=== PATIENT | male | born 1940 | race Caucasian/White ===

== ENCOUNTER → 2018-03-12 08:34 | Day surgery (SDC) | payer MEDICARE, OTHER, SELFPAY ==
--- NOTE | 2018-03-12 | PATH_ITS ---
[facility] Accession Number: [id number] . 01 Material submitted: . PART A: POLYPS AT APPENDICEAL ORIFICE PART B: ASCENDING COLON POLYP PART C: POLYP AT 55CM PART D: POLYP AT 25CM . 01 Clinical history: . A: HX OF DYPLASTIC POLYP . 02 Diagnosis: A. 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 No evidence of invasive carcinoma. . B. Ascending Colon Polyp, Biopsy: Tubular adenoma. . C. Polyp at 55 cm, Biopsy: Hyperplastic polyp. . D. Polyp at 25 cm, Biopsy: Hyperplastic polyp. MRV/03/14/2018 . 02 Comment: A sessile serrated adenoma with high-grade cytologic dysplasia is considered an advanced adenoma. Complete polypectomy and shortened surveillance interval are recommended. . As part of routine quality specialist, Drs. Barker and Ryan have reviewed part A of this case and agree with the above diagnosis. . 02 Electronically signed: . Rogelio Zapata MD, PhD, Pathologist NPI- [id number] . 01 Gross description: . Received four formalin-filled containers each labeled with the patient's name. . A. In a container labeled 1. Polyps at appendiceal orifice are multiple less than 0.1 to 0.3 cm portions of tissue, which are filtered, wrapped and entirely submitted in cassette A. B. In a container labeled ascending colon polyp, the specimen consists of a 0.3 cm portion of tissue. Entirely submitted in cassette B. C. In a container labeled polyp at 55 cm, the specimen consists of two 0.2 to 0.3 cm portions of tissue. Entirely submitted in cassette C. D. In a container labeled polyp at 25 cm are two 0.2 to 0.3 cm portions of tissue. Entirely submitted in cassette D. ([email or web address] ) / . Pathologist provided ICD-10: D12.0, D12.2, K63.5 . 02 CPT . 168445, 917344, [id number], [id number] Performed at: 01 [facility] [address] [address], [place], [place] [id number] MD Michael Mirza MD Phone: [phone] Performed at: 02 [facility] [address] [place], [place] [id number] MD Jl Malone MD Phone: [phone]
[2018-03-12 09:15] VITALS: BP 126/80; PULSE 122; RESP 16; TEMP 36.2; O2SAT 94; BMI 32.6
--- NOTE | 2018-03-12 09:57 | PM.HP.1 ---
History of Present Illness Chief complaint: colonoscopy [id number] Narrative: Alex Coronado is a 78 year old male Patient is a gentleman who had an EGD and colonoscopy in September. He had a severely dysplastic lesion removed in the cecum. He is brought back to ensure that nothing has grown back in that area. This was adjacent to his appendiceal opening. He persist persists at being anemic [facility] Medical History Atrial fibrillation (Acute) Partial blindness (Acute) History of prostate cancer (Inactive) History of radiation therapy (Inactive) Social History Smoking Status: Former smoker Meds Home Medications Medication Instructions Recorded Confirmed Type Brimonidine Tartrate (ALPHAGAN 5 ml OP #0 05/31/12 History 0.2%) [D3] 1,000 mg PO QDAY #0 05/31/12 History amlodipine [Norvasc] 5 mg PO QDAY #0 05/31/12 History olmesartan [Benicar] 40 mg PO QDAY #0 05/31/12 History timolol maleate [Timoptic] 1 drp OPHTH #0 05/31/12 History diphenoxylate-atropine 1 tab PO PRN PRN #0 10/09/17 History levothyroxine [Tirosint] 0 PO QDAY #0 10/09/17 History metoprolol succinate [Toprol XL] #0 10/09/17 History Generic Name Dose Route Start Last Admin Trade Name Noble PRN Reason Stop Dose Admin Flumazenil 0.2 mg 03/12/18 08:17 Romazicon IV PRN PRN Benzodiazepine Reversal Sodium Chloride 1,000 mls @ 200 mls/hr 03/12/18 08:30 Normal Saline 0.9% IV CONT DANNY Naloxone HCl 0.2 mg 03/12/18 08:17 Narcan IV Q2MIN PRN Opiate Reversal Allergies Allergy/AdvReac Type Severity Reaction Status Date / Time No Known Drug Allergies Allergy Verified 03/12/18 09:02 Review of Systems Review of Systems All systems reviewed & are unremarkable except as noted in HPI and below Eyes Comments: 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 His lungs are clear to auscultation. No rales or rhonchi. Heart irregularly irregular. No murmur or gallop appreciated. Abdomen is protuberant soft nontender without mass. Patient is alert and oriented x3. Assessment & Plan Plan: Plan: I have discussed the procedure and the rationale with the patient including risks of bleeding, perforation which would necessitate a major operation, failure to find remove all lesions and the potential to tattoo. They appeared to understand and wished to proceed.
--- NOTE | 2018-03-12 10:03 | P.HP_ITS ---
History of Present Illness Chief complaint: colonoscopy [id number] Narrative: Alex Coronado is a 78 year old male Patient is a gentleman who had an EGD and colonoscopy in September. He had a severely dysplastic lesion removed in the cecum. He is brought back to ensure that nothing has grown back in that area. This was adjacent to his appendiceal opening. He persist persists at being anemic [facility] Medical History Atrial fibrillation (Acute) Partial blindness (Acute) History of prostate cancer (Inactive) History of radiation therapy (Inactive) Social History Smoking Status: Former smoker Meds Home Medications Medication Instructions Recorded Confirmed Type Brimonidine Tartrate (ALPHAGAN 5 ml OP #0 05/31/12 History 0.2%) [D3] 1,000 mg PO QDAY #0 05/31/12 History amlodipine [Norvasc] 5 mg PO QDAY #0 05/31/12 History olmesartan [Benicar] 40 mg PO QDAY #0 05/31/12 History timolol maleate [Timoptic] 1 drp OPHTH #0 05/31/12 History diphenoxylate-atropine 1 tab PO PRN PRN #0 10/09/17 History levothyroxine [Tirosint] 0 PO QDAY #0 10/09/17 History metoprolol succinate [Toprol XL] #0 10/09/17 History Generic Name Dose Route Start Last Admin Trade Name Noble PRN Reason Stop Dose Admin Flumazenil 0.2 mg 03/12/18 08:17 Romazicon IV PRN PRN Benzodiazepine Reversal Sodium Chloride 1,000 mls @ 200 mls/hr 03/12/18 08:30 Normal Saline 0.9% IV CONT DANNY Naloxone HCl 0.2 mg 03/12/18 08:17 Narcan IV Q2MIN PRN Opiate Reversal Allergies Allergy/AdvReac Type Severity Reaction Status Date / Time No Known Drug Allergies Allergy Verified 03/12/18 09:02 Review of Systems Review of Systems All systems reviewed & are unremarkable except as noted in HPI and below Eyes Comments: 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 His lungs are clear to auscultation. No rales or rhonchi. Heart irregularly irregular. No murmur or gallop appreciated. Abdomen is protuberant soft nontender without mass. Patient is alert and oriented x3. Assessment & Plan Plan: Plan: I have discussed the procedure and the rationale with the patient including risks of bleeding, perforation which would necessitate a major operation, failure to find remove all lesions and the potential to tattoo. They appeared to understand and wished to proceed.
--- NOTE | 2018-03-12 10:03 | PM.PREOP ---
Pre-operative Note Interval Note Pre-op Check: History & Physical exam performed today H&P completed within 30 days and has changed as indicated here:: None ASA Class (for procedural sedation): III
[2018-03-12 10:48] VITALS: BP 100/68; PULSE 106; RESP 17; TEMP 36.4; O2SAT 96
--- NOTE | 2018-03-12 10:49 | PM.OP.ENDO ---
Operative Date/Time/Diagnoses - Date of procedure: 03/12/18 Time of procedure: 10:49 Pre-op diagnosis: History of dysplastic polyp of the cecum. Post-op diagnosis: same (Same as preop. Other polyps at ascending colon, 55 cm and 25 cm from anal verge. Av malformations of the cecum.) Procedure & Clinicians Study performed: Colonoscopy with hot snare polypectomy and cold biopsies Same procedure as scheduled: Yes Indications: Confirmed complete removal of dysplastic polyp Surgeon: Meng Grande Procedure Notes SCOAP/Timeout: Performed Procedure in detail: The patient was placed in the left lateral decubitus position and underwent IV sedation directed by the surgeon consisting of fentanyl and Versed. Digital exam was remarkable for an absent or reduced prostate. The scope was inserted and advanced through the rectum into the sigmoid, descending, transverse, and ascending colon. The patient was noted to have extensive left colon diverticulosis. The cecum was reached identified by the ileocecal valve and the appendiceal opening. The ileocecal valve was not cannulated. There was a small lesion in the appendiceal opening which probably represents either residual regrowth of the severely dysplastic lesion removed in September. I snared this lesion and then biopsied the edges to confirm removal. 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 The scope was gradually brought out. There was a lesion in the ascending colon which we biopsied and removed. Another lesion was found at 55 cm which was snared. Finally there was a small lesion at 25 cm which was biopsied and removed. The scope was gradually brought out. The scope ultimately was retroflexed in the rectum. The appearance was[normal]. The scope was removed and the patient tolerated the procedure well Scope withdrawal time: Over 6 min excluding biopsy ti Sedation minutes: 33 Findings: diverticulosis (Left colon), polyp (Near appendiceal opening, ascending colon, 55 cm and 25 cm) and vascular ectasias (Cecum) Recommendations: Colonscopy in 1 year Plan for aftercare: By letter. If dysplastic polyp remains repeat in 6 months. Follow up: as needed Disposition: PACU
[2018-03-12 10:53] VITALS: BP 104/72; PULSE 110; RESP 16; TEMP 36.4; O2SAT 996
[2018-03-12 11:05] VITALS: BP 95/68; PULSE 97; RESP 16; TEMP 36.7; O2SAT 92
[2018-03-12 11:19] VITALS: BP 98/63; RESP 16; TEMP 36.4; O2SAT 95
--- NOTE | 2018-03-12 11:25 | SUR.PHASEII ---
Dinies light-headedness, dizziness, states that he feels good and is ready to go home. Tolerated PO intake well.
--- NOTE | 2018-03-12 11:27 | SUR.PHASEII ---
700 ml total NS infused throughout Surgical Stay
== END | disposition home or self-care (01) ==
PROVIDERS: Family Provider Family Medicine; PCP Family Medicine; Visit Provider Specialist
PROC: 0DJD8ZZ Inspection of Lower Intestinal Tract, Via Natural or Artificial Opening Endoscopic (ICD-10-PCS; CPT 45378; principal; 2018-03-12 09:45)
DX: Z87.19 Personal history of other diseases of the digestive system (principal); I48.91 Unspecified atrial fibrillation; Z87.891 Personal history of nicotine dependence; K57.30 Diverticulosis of large intestine without perforation or abscess without bleeding; D12.0 Benign neoplasm of cecum; D12.2 Benign neoplasm of ascending colon; K63.5 Polyp of colon
CPT/HCPCS: 45385; 45380; 99152; 99153

== ENCOUNTER → 2018-08-14 12:27 | Outpatient (CLI) | payer MEDICARE, OTHER, SELFPAY ==
--- NOTE | 2018-08-14 | DI.ECHO.S_ITS ---
[facility] +---------+ : : [address] : : : : [phone] : : : : Phone: [phone]+ Echocardiogram Report + + :Name: SOFYA CARPIO Study Date: 08/14/2018 Height: 68 in : :[facility] Weight: 221 lb: : Gender: Male BSA: 2.1 m2 : :: 1940 Age: 78 yrs : :Reason For Study: SOB, HYPOTENSION : : Performed By: Allison Reza : :Referring: FELIX FELIX L : + + Interpretation Summary 1) Mild-moderately concentric left ventricular hypertrophy with normal size and mildly reduced systolic function (EF 45-50%). 2) Upper normal right ventricular size with mildly reduced function. 3) Both atria are severely dilated. 4) There is mild to moderate mitral regurgitation. 5) There is mild to moderate tricuspid regurgitation. 6) The right ventricular systolic pressure is estimated to be at least 56 mmHg based on an estimated right atrial pressure of 15 mm Hg. 7) The IVC is dilated (diameter is greater than 2.1 cm) and it collapses less than 50% with a sniff. This suggests a high right atrial pressure of 15 mm Hg. 8) Compared to the Echo done 03/07/2016, LVEF has reduced from 55-60% to 45-50% on this study. Procedure: A two-dimensional transthoracic echocardiogram with color flow and Doppler was performed. The study quality was technically adequate. Comparison is made with the echocardiogram of 03/07/2016. The patient was in atrial fibrillation with heart rates between 73-105 bpm during the exam. Left Ventricle: The left ventricle is normal in size. There is mild-moderate concentric left ventricular hypertrophy. The ejection fraction is estimated to be 45-50%. Diastolic function could not be accurately assessed due to atrial fibrillation. Right Ventricle: The right ventricle is at the upper limits of normal in size. Right ventricular systolic function is mildly reduced. Atria: Both atria are severely dilated. There is no Doppler evidence for an interatrial shunt. Mitral Valve: There is mild mitral annular calcification. There is mild to moderate mitral regurgitation. Aortic Valve: The aortic valve is trileaflet. The aortic valve opens well. There is mild aortic valve sclerosis. There is no aortic valve stenosis. There is mild aortic regurgitation. Tricuspid Valve: The tricuspid valve leaflets are thin and pliable. There is mild to moderate tricuspid regurgitation. The right ventricular systolic pressure is estimated to be at least 56 mmHg based on an estimated right atrial pressure of 15 mm Hg. Pulmonic Valve: The pulmonic valve is normal in structure and function. There is mild pulmonic regurgitation. Great Vessels: The aortic root is normal size. The ascending aorta is at the upper limits of normal in size. The aortic arch is normal in size. The pulmonary artery is normal size. The IVC is dilated (diameter is greater than 2.1 cm) and it collapses less than 50% with a sniff. This suggests a high right atrial pressure of 15 mm Hg. Pericardium/ Pleura There is no pericardial effusion. There is no pleural effusion. MMode/2D Measurements & Calculations LVIDd: 5.4 cm LVOT diam: 2.0 cm LVIDs: 4.7 cm Ao root diam: 3.7 cm FS: 11.7 % asc Aorta Diam: 3.9 cm IVSd: 1.3 cm Ao Arch Diam (Prox Trans): 2.8 cm LVPWd: 1.2 cm LV bland. diameter/BSA (cm/m^2): 2.5 LV sys. diameter/BSA (cm/m^2): 2.2 LA A2 area: 32.3 cm2 RA long axis: 7.7 cm LA A4 area: 37.9 cm2 RA area: 32.9 cm2 LA length (vol): 8.0 cm RA vol: 119.9 ml LA vol: 130.1 ml RA : 56.2 ml/m2 LA vol index: 61.0 ml/m2 IVC diam: 2.9 cm RVD1 (basal): 3.9 cm TAPSE: 1.2 cm Doppler Measurements & Calculations Ao V2 max: 120.6 cm/sec LVOT Max Pranav: 65.2 cm/sec Ao V2 mean: 81.6 cm/sec LV V1 max P.7 mmHg Ao max P.0 mmHg LV V1 VTI: 9.9 cm Ao mean P.1 mmHg MCKENZIE(I,D): 1.7 cm2 Ao V2 VTI: 19.6 cm MCKENZIE(V,D): 1.8 cm2 sev ratio: 0.50 MCKENZIE indexed to BSA (cm^2/m^2): 0.78 MV E max pranav: 89.5 cm/sec TR max pranav: 321.7 cm/sec MV dec time: 0.17 sec TR max P.4 mmHg Reading Physician:03:05 PM
== END ==
PROVIDERS: Family Provider Internal Medicine Cardiovascular Disease; PCP Family Medicine; Visit Provider Family Medicine
DX: I95.9 Hypotension, unspecified (principal)
CPT/HCPCS: 93306

== ENCOUNTER → 2018-08-28 11:07 | Outpatient (CLI) | payer MEDICARE, OTHER, SELFPAY ==
[2018-08-28 11:33] LABS: Add Manual Diff / Slide Review NO; Basophils Percent Auto 1.2 % (0-2); Eosinophils Percent Auto 0.7 % (2-4); Hematocrit 34.2 % (41-53); Hemoglobin 11.1 g/dL (13.5-17.5); Mean Corpuscular HGB Conc 32.3 % (30-36); Mean Corpuscular Hemoglobin 31.1 PG (26-34); Mean Corpuscular Volume 96.1 fL (80-100); Monocytes Percent Auto 8.7 % (3-14); Neutrophils Absolute Auto 5800 /uL (3000-5900); Neutrophils Percent Auto 76.4 % (50-75); Platelet Count 266 X10^3/uL (150-400); Red Blood Cell Count 3.56 X10^6/uL (4.5-5.9); Red Cell Distribution Width 18.2 % (11.6-14.8); White Blood Cell Count 7.6 X10^3/uL (4.5-11.0)
[2018-08-28 11:44] LABS: BUN Creatinine Ratio 17.9 (6-22); Blood Urea Nitrogen 25 mg/dL (9-20); Calcium 9.1 mg/dL (8.4-10.2); Carbon Dioxide 20 mmol/L (22-32); Chloride 109 mmol/L (98-107); Estimated Glomerular Filt Rate 48.9 mL/min (>60); Glucose 110 mg/dL (80-110); HEMOLYSIS < 15 (0-50); Potassium 4.4 mmol/L (3.4-5.1); Sodium 145 mmol/L (137-145)
== END ==
PROVIDERS: Family Provider Internal Medicine Cardiovascular Disease; PCP Family Medicine; Visit Provider Internal Medicine Cardiovascular Disease
DX: I48.2 Chronic atrial fibrillation (principal)
CPT/HCPCS: 36415; 80048; 85025

== ENCOUNTER → 2018-10-21 09:22 | Outpatient (CLI) | payer MEDICARE, OTHER, SELFPAY ==
--- NOTE | 2018-10-21 | DI.ECHO.S_ITS ---
[facility]---------+ [facility] +---------+ : : [address] : : : : [phone] : : : : Phone: [phone] +[phone]+ Echocardiogram Report + + :Name: SOFYA CARPIO Study Date: 10/21/2018 Height: 68 in : :[facility] Exam Location: [facility] Weight: 232 lb : : Gender: Male BSA: 2.2 m2 : :: 1940 Age: 78 yrs BP: 105/80 mmHg: :Reason For Study: HEART FAILURE : : Performed By: Ronnell Dunn : :Referring: FELIX FELIX : + + Interpretation Summary The patient was in atrial fibrillation with controlled ventricular rate during the exam. Moderate concentric left ventricular hypertrophy with ejection fraction 30- 35%. There is inferior wall akinesis. Mildly dilated right ventricle with moderately reduced right ventricular systolic function. Severely dilated both atria. Mild mitral annular calcification. Mild to moderate mitral regurgitation. Moderate tricuspid regurgitation. The right ventricular systolic pressure is estimated to be at least 46 mmHg based on an estimated right atrial pressure of 15 mm Hg. Mild aortic valve sclerosis. Mildly enlarged ascending aorta. Incifdental finding of abdominal ascites is noted. Comparison is made with the echocardiogram of 08/14/18, LV function has worsen with new inferior wall motion abnormality. Procedure: A two-dimensional transthoracic echocardiogram with color flow and Doppler was performed. The study quality was technically adequate. Comparison is made with the echocardiogram of 08/14/18. The patient was in atrial fibrillation with controlled ventricular rate during the exam. The patient had a heart rate of 71-101 beats per minute. Left Ventricle: The left ventricle is normal in size. There is moderate concentric left ventricular hypertrophy. The ejection fraction is estimated to be 30-35%. There is inferior wall akinesis. There is septal wall hypokinesis. Diastolic function could not be accurately assessed due to atrial fibrillation. Right Ventricle: The right ventricle is mildly dilated. Right ventricular systolic function is moderately reduced. Atria: Both atria are severely dilated. The interatrial septum is intact with no evidence for an atrial septal defect. Mitral Valve: The mitral valve is normal in structure and function. There is mild mitral annular calcification. There is mild to moderate mitral regurgitation. Aortic Valve: The aortic valve is trileaflet. Leaflet mobility is minimally reduced. There is mild aortic valve sclerosis. There is trace aortic regurgitation. Tricuspid Valve: The tricuspid valve is normal in structure and function. There is moderate tricuspid regurgitation. The right ventricular systolic pressure is estimated to be at least 46 mmHg based on an estimated right atrial pressure of 15 mm Hg. Pulmonic Valve: The pulmonic valve is normal in structure and function. There is trace pulmonic regurgitation. Great Vessels: The aortic root is normal size. The ascending aorta is mildly enlarged. The pulmonary artery is normal size. The IVC is dilated (diameter is greater than 2.1 cm) and it collapses less than 50% with a sniff. This suggests a high right atrial pressure of 15 mm Hg. Pericardium/ Pleura There is no pericardial effusion. There is no pleural effusion. Incifdental finding of abdominal ascites is noted. MMode/2D Measurements & Calculations LVIDd: 5.4 cm LVOT diam: 2.1 cm LVIDs: 4.1 cm Ao root diam: 3.6 cm FS: 23.0 % Aortic Jxn: 2.5 cm EPSS: 0.84 cm asc Aorta Diam: 3.6 cm IVSd: 1.5 cm Ao Arch Diam (Prox Trans): 2.8 cm LVPWd: 1.4 cm LV lband. diameter/BSA (cm/m^2): 2.5 LV sys. diameter/BSA (cm/m^2): 1.9 LA dimension: 4.6 cm RA long axis: 6.8 cm LA A2 area: 33.8 cm2 RA area: 36.5 cm2 LA A4 area: 40.2 cm2 RA vol: 166.7 ml LA length (vol): 6.9 cm RA : 76.6 ml/m2 LA vol: 166.2 ml IVC diam: 3.0 cm LA vol index: 76.3 ml/m2 RVD1 (basal): 4.6 cm RVD2 (mid): 4.8 cm Doppler Measurements & Calculations Ao V2 max: 104.3 cm/sec LVOT Max Pranav: 71.0 cm/sec Ao V2 mean: 73.8 cm/sec LV V1 max P.0 mmHg Ao max P.4 mmHg LV V1 VTI: 11.8 cm Ao mean P.4 mmHg MCKENZIE(I,D): 2.5 cm2 Ao V2 VTI: 16.5 cm MCKENZIE(V,D): 2.4 cm2 sev ratio: 0.72 MCKENZIE indexed to BSA (cm^2/m^2): 1.2 AI P1/2t: 772.8 msec AI dec slope: 125.0 cm/sec2 MV E max pranav: 70.1 cm/sec TR max pranav: 277.3 cm/sec MV A max pranav: 0.75 cm/sec TR max P.8 mmHg MV E/A: 93.1 PA V2 max: 46.4 cm/sec Med Peak E' Pranav: 3.4 cm/sec PA V2 mean: 33.4 cm/sec E/E' med: 20.6 PA mean P.50 mmHg Lat Peak E' Pranav: 5.1 cm/sec PA pr(Accel): 35.7 mmHg E/E' lat: 13.8 PA Accel Time: 0.10 sec E/e' average: 17.2 MV dec time: 0.19 sec SV(LVOT): 42.0 ml Electronically signed by: John Langford on Reading Physician:10/21/2018 02:25 PM
== END ==
PROVIDERS: Family Provider Internal Medicine Cardiovascular Disease; PCP Family Medicine; Visit Provider Family Medicine
DX: I50.9 Heart failure, unspecified (principal)
CPT/HCPCS: 93306

== ENCOUNTER 2019-05-21 16:28 | Emergency (ER) | payer MEDICARE, OTHER, SELFPAY ==
[2019-05-21 16:40] VITALS: BP 111/72; PULSE 85; RESP 20; TEMP 36.3; O2SAT 98; BMI 32.0
[2019-05-21 17:38] LABS: INR 2.8 (0.9-1.3); Prothrombin Time 33.2 SECONDS (10.1-12.7)
[2019-05-21 17:39] LABS: Add Manual Diff / Slide Review NO; Basophils Absolute Auto 0 /uL (0-100); Basophils Percent Auto 1.3 % (0-2); Eosinophils Absolute Auto 0 /uL (0-450); Eosinophils Percent Auto 1.3 % (2-4); Hematocrit 26.7 % (41-53); Hemoglobin 8.6 g/dL (13.5-17.5); Lymphocytes Absolute Auto 700 /uL (1100-4500); Lymphocytes Percent Auto 18.8 % (25-40); Mean Corpuscular HGB Conc 32.1 % (30-36); Mean Corpuscular Hemoglobin 31.6 PG (26-34); Mean Corpuscular Volume 98.3 fL (80-100); Monocytes Absolute Auto 400 /uL (0-900); Monocytes Percent Auto 10.3 % (3-14); Neutrophils Absolute Auto 2600 /uL (1500-7000); Neutrophils Percent Auto 68.3 % (50-75); Platelet Count 192 X10^3/uL (150-400); Red Blood Cell Count 2.71 X10^6/uL (4.5-5.9); Red Cell Distribution Width 15.5 % (11.6-14.8); White Blood Cell Count 3.7 X10^3/uL (4.5-11.0)
[2019-05-21 17:45] LABS: Alanine Aminotransferase 16 IU/L (21-72); Albumin 3.7 g/dL (3.5-5.0); Albumin Globulin Ratio 1.2 (1.0-2.8); Alkaline Phosphatase 293 U/L (38-126); Aspartate Aminotransferase 24 IU/L (17-59); Bilirubin Total 0.7 mg/dL (0.2-1.3); Blood Urea Nitrogen 46 mg/dL (9-20); Calcium 9.4 mg/dL (8.4-10.2); Carbon Dioxide 23 mmol/L (22-32); Chloride 111 mmol/L (98-107); Estimated Glomerular Filt Rate 27.5 mL/min (>60); Globulin 3.1 g/dL (1.7-4.1); Glucose 98 mg/dL (80-110); HEMOLYSIS < 15 (0-50); Potassium 4.3 mmol/L (3.4-5.1); Sodium 142 mmol/L (137-145); Total Protein 6.8 g/dL (6.3-8.2)
[2019-05-21 18:58] VITALS: BP 127/87; PULSE 64; RESP 20; O2SAT 97
--- NOTE | 2019-05-21 19:40 | ED.GIBLEED ---
HPI - GI Bleed <Silvia Corcoranmer, WELDING INSTRUCTOR-BC - Last Filed: 05/21/19 19:47> General Chief complaint: GI Bleed Stated complaint: blood in stool for past month Time Seen by Provider: 05/21/19 17:03 Source: patient and family Mode of arrival: ambulatory Limitations: no limitations History of Present Illness HPI Narrative: The patient is an 79-year-old male former smoker who presents with his for chief complaint of needing a transfusion. He states he has had gastrointestinal bleeding for the past several months. He denies any lightheadedness or dizziness. He denies any chest pain or abnormal shortness of breath. He states that he was seen at his PCP, they called him stating that his hemoglobin was very low and he might need a transfusion. He denies any abdominal pain. He does take Coumadin due to atrial fibrillation. He states he thinks that his hemoglobin was 6 today. Related Data Home Medications Medication Instructions Recorded Confirmed cholecalciferol (vitamin D3) 1,000 unit PO DAILY #0 05/31/12 05/21/19 [Vitamin D3] metoprolol succinate [Toprol XL] 25 mg PO DAILY #0 10/09/17 05/21/19 Inhaler 1 puff INHALATION QPM 05/21/19 05/21/19 allopurinol 300 mg PO DAILY 05/21/19 05/21/19 furosemide 40 mg PO DAILY 05/21/19 05/21/19 furosemide 80 mg PO QAM 05/21/19 05/21/19 levothyroxine 25 mcg PO DAILY 05/21/19 05/21/19 levothyroxine 125 mcg PO DAILY 05/21/19 05/21/19 losartan 25 mg PO QPM 05/21/19 05/21/19 tamsulosin 0.4 mg PO DAILY 05/21/19 05/21/19 tiotropium bromide [Spiriva 1 puff INHALATION DAILY 05/21/19 05/21/19 Respimat] warfarin 2.5 mg PO Q OTHER DAY 05/21/19 05/21/19 warfarin 5 mg PO Q OTHER DAY 05/21/19 05/21/19 Previous Rx's Medication Instructions Recorded omeprazole 20 mg tablet,delayed 20 mg PO BID #60 tab 07/17/18 release Allergies Allergy/AdvReac Type Severity Reaction Status Date / Time No Known Drug Allergies Allergy Verified 03/12/18 09:02 Review of Systems <DELVIN Velazquez - Last Filed: 05/21/19 19:47> Review of Systems GENERAL: See HPI HEENT: Denies sinus pain, ear pain, sore throat, difficulty swallowing, dizziness. RESPIRATORY: Denies dyspnea, cough, wheezing, hemoptysis, sputum. CARDIOVASCULAR: Denies chest pain, palpitations, orthopnea, edema, GASTROINTESTINAL: See HPI : Denies dysuria, frequency, incontinence, hematuria, urinary retention. MUSCULOSKELETAL: denies weakness, joint pain, or bony pain SKIN: Denies rash, skin lesions, or other NEUROLOGIC: Denies weakness, headache, numbness, change in speech, confusion, seizures, incoordination. PSYCHIATRIC: No concerning psychosocial issues. 12 point review of systems is negative except for those stated above PFSH <DELVIN Velazquez - Last Filed: 05/21/19 19:47> Medical History Atrial fibrillation (Acute) Partial blindness (Acute) History of prostate cancer (Inactive) History of radiation therapy (Inactive) Social History (Updated 03/12/18 @ 10:00 by Meng Grande MD) household members: spouse Smoking Status: Former smoker Social History household members: spouse Smoking Status: Former smoker Exam <DELVIN Velazquez - Last Filed: 05/21/19 19:47> Narrative Exam Narrative: GENERAL: Obese gentleman sitting on stretcher in no acute distress HEAD: Atraumatic. Normocephalic. No temporal or scalp tenderness. EYES: Pupils equal round and reactive. Extraocular motions intact. No scleral icterus. No injection or drainage. ENT: Nose without bleeding, purulent drainage or septal hematoma. Throat without erythema, tonsillar hypertrophy or exudate. Uvula midline. Airway patent. NECK: Trachea midline. No JVD or lymphadenopathy. Supple, nontender, no meningeal signs. CARDIOVASCULAR: Regular rate and irregular rhythm RESPIRATORY: Clear to auscultation. Breath sounds equal bilaterally. No wheezes, rales, or rhonchi. No cough. No increased respiratory effort. No accessory muscle use. GASTROINTESTINAL: Abdomen soft, non-tender, nondistended. No hepato-splenomegaly, or palpable masses. No guarding. Active bowel sounds all 4 quadrants EXTREMITIES: No clubbing, cyanosis, or edema. No joint tenderness, effusion, or edema noted. BACK: Nontender without deformity or crepitance. No flank tenderness. NEURO: AOx3. SKIN: No rash or erythema. Initial Vital Signs Initial Vital Signs: Vital Signs Temperature 97.3 F L 05/21/19 16:40 Pulse Rate 85 05/21/19 16:40 Respiratory Rate 20 05/21/19 16:40 Blood Pressure 111/72 05/21/19 16:40 Pulse Oximetry 98 05/21/19 16:40 <DO Tessie Bkaer Last Filed: 05/21/19 20:04> Initial Vital Signs Initial Vital Signs: Vital Signs Temperature 97.3 F L 05/21/19 16:40 Pulse Rate 85 05/21/19 16:40 Respiratory Rate 20 05/21/19 16:40 Blood Pressure 111/72 05/21/19 16:40 Pulse Oximetry 98 05/21/19 16:40 Course <DELVIN Velazquez - Last Filed: 05/21/19 19:47> Orders Ordered: ED Orders 05/21/19 17:10 CBC [Complete Blood Count AUTO DIFF] Stat Comprehensive Metabolic Panel Stat Prothrombin Time INR Stat Type and Screen Stat Vital Signs - 8 hr 05/21/19 16:40 05/21/19 18:58 Temperature 97.3 F L Pulse Rate 85 64 Respiratory Rate 20 20 Blood Pressure 111/72 127/87 Pulse Oximetry 98 97 <DO Tessie Baker Last Filed: 05/21/19 20:04> Orders Ordered: ED Orders 05/21/19 17:10 CBC [Complete Blood Count AUTO DIFF] Stat Comprehensive Metabolic Panel Stat Prothrombin Time INR Stat Type and Screen Stat Vital Signs - 8 hr 05/21/19 16:40 05/21/19 18:58 Temperature 97.3 F L Pulse Rate 85 64 Respiratory Rate 20 20 Blood Pressure 111/72 127/87 Pulse Oximetry 98 97 MDM - GI Bleed <DELVIN Velazquez - Last Filed: 05/21/19 19:47> Lab Data Result diagrams: 05/21/19 17:10 05/21/19 17:10 Lab Results 05/21/19 05/21/19 05/21/19 Range/Units 17:10 17:10 17:10 WBC 3.7 L (4.5-11.0) X10^3/uL RBC 2.71 L (4.5-5.9) X10^6/uL Hgb 8.6 L (13.5-17.5) g/dL Hct 26.7 L (41-53) % MCV 98.3 (80-100) fL MCH 31.6 (26-34) PG MCHC 32.1 (30-36) % RDW 15.5 H (11.6-14.8) % Plt Count 192 (150-400) X10^3/uL Neut % (Auto) 68.3 (50-75) % Lymph % (Auto) 18.8 L (25-40) % Mcdonald % (Auto) 10.3 (3-14) % Eos % (Auto) 1.3 L (2-4) % Baso % (Auto) 1.3 (0-2) % Neut # (Auto) 2600 (8268-8942) /uL Lymph # (Auto) 700 L (8719-0427) /uL Mcdonald # (Auto) 400 (0-900) /uL Eos # (Auto) 0 (0-450) /uL Baso # (Auto) 0 (0-100) /uL PT 33.2 H (10.1-12.7) SECONDS INR 2.8 H (0.9-1.3) Sodium 142 (137-145) mmol/L Potassium 4.3 (3.4-5.1) mmol/L Chloride 111 H (98-107) mmol/L Carbon Dioxide 23 (22-32) mmol/L BUN 46 H (9-20) mg/dL Creatinine 2.30 H (0.66-1.25) mg/dL Estimated GFR 27.5 L (>60) mL/min BUN/Creatinine Ratio 20.0 (6-22) Glucose 98 (80-110) mg/dL Calcium 9.4 (8.4-10.2) mg/dL Total Bilirubin 0.7 (0.2-1.3) mg/dL AST 24 (17-59) IU/L ALT 16 L (21-72) IU/L Alkaline Phosphatase 293 H (38-126) U/L Total Protein 6.8 (6.3-8.2) g/dL Albumin 3.7 (3.5-5.0) g/dL Globulin 3.1 (1.7-4.1) g/dL Albumin/Globulin Ratio 1.2 (1.0-2.8) Blood Type Antibody Screen 05/21/19 Range/Units 17:10 WBC (4.5-11.0) X10^3/uL RBC (4.5-5.9) X10^6/uL Hgb (13.5-17.5) g/dL Hct (41-53) % MCV (80-100) fL MCH (26-34) PG MCHC (30-36) % RDW (11.6-14.8) % Plt Count (150-400) X10^3/uL Neut % (Auto) (50-75) % Lymph % (Auto) (25-40) % Mcdonald % (Auto) (3-14) % Eos % (Auto) (2-4) % Baso % (Auto) (0-2) % Neut # (Auto) (0026-3910) /uL Lymph # (Auto) (4593-8616) /uL Mcdonald # (Auto) (0-900) /uL Eos # (Auto) (0-450) /uL Baso # (Auto) (0-100) /uL PT (10.1-12.7) SECONDS INR (0.9-1.3) Sodium (137-145) mmol/L Potassium (3.4-5.1) mmol/L Chloride (98-107) mmol/L Carbon Dioxide (22-32) mmol/L BUN (9-20) mg/dL Creatinine (0.66-1.25) mg/dL Estimated GFR (>60) mL/min BUN/Creatinine Ratio (6-22) Glucose (80-110) mg/dL Calcium (8.4-10.2) mg/dL Total Bilirubin (0.2-1.3) mg/dL AST (17-59) IU/L ALT (21-72) IU/L Alkaline Phosphatase (38-126) U/L Total Protein (6.3-8.2) g/dL Albumin (3.5-5.0) g/dL Globulin (1.7-4.1) g/dL Albumin/Globulin Ratio (1.0-2.8) Blood Type A Positive Antibody Screen Negative MDM Narrative Medical decision making narrative: The patient is an 79-year-old male who presents with a chief complaint of GI bleeding for the past several months. He states that he had a Hemoccult today, which was positive and he does not want a repeat 1 in the emergency department. Chart review does a history of positive Hemoccult from PCP's office. The patient has a hemoglobin of 8.6, and denies any lightheadedness or dizziness. He states he feels okay. I do not believe he needs a transfusion at this point time, and the patient is were comfortable with that. Upon learning his hemoglobin was 8.6, his states oh he does not need a transfusion.I did discuss at length with the patient the pros and cons of stopping his Coumadin given his GI bleed. We discussed that if he continues his Coumadin, he is at risk of bleeding to . We discussed that if he stops his Coumadin, he is at risk of having a stroke. The patient states that he would rather continue his Coumadin. I discussed at length coming back to the ER for any acute concerns such as lightheadedness or GI bleeding. I encouraged follow-up with PCP as I feel as though the patient would benefit from a colonoscopy. Patient and state understanding, stated understanding of risks of continuing Coumadin. They have no questions or concerns upon discharge <Silvia Butts, - Last Filed: 05/21/19 20:04> Lab Data Lab Results 05/21/19 05/21/19 05/21/19 Range/Units 17:10 17:10 17:10 WBC 3.7 L (4.5-11.0) X10^3/uL RBC 2.71 L (4.5-5.9) X10^6/uL Hgb 8.6 L (13.5-17.5) g/dL Hct 26.7 L (41-53) % MCV 98.3 (80-100) fL MCH 31.6 (26-34) PG MCHC 32.1 (30-36) % RDW 15.5 H (11.6-14.8) % Plt Count 192 (150-400) X10^3/uL Neut % (Auto) 68.3 (50-75) % Lymph % (Auto) 18.8 L (25-40) % Mcdonald % (Auto) 10.3 (3-14) % Eos % (Auto) 1.3 L (2-4) % Baso % (Auto) 1.3 (0-2) % Neut # (Auto) 2600 (3934-3216) /uL Lymph # (Auto) 700 L (1814-6913) /uL Mcdonald # (Auto) 400 (0-900) /uL Eos # (Auto) 0 (0-450) /uL Baso # (Auto) 0 (0-100) /uL PT 33.2 H (10.1-12.7) SECONDS INR 2.8 H (0.9-1.3) Sodium 142 (137-145) mmol/L Potassium 4.3 (3.4-5.1) mmol/L Chloride 111 H (98-107) mmol/L Carbon Dioxide 23 (22-32) mmol/L BUN 46 H (9-20) mg/dL Creatinine 2.30 H (0.66-1.25) mg/dL Estimated GFR 27.5 L (>60) mL/min BUN/Creatinine Ratio 20.0 (6-22) Glucose 98 (80-110) mg/dL Calcium 9.4 (8.4-10.2) mg/dL Total Bilirubin 0.7 (0.2-1.3) mg/dL AST 24 (17-59) IU/L ALT 16 L (21-72) IU/L Alkaline Phosphatase 293 H (38-126) U/L Total Protein 6.8 (6.3-8.2) g/dL Albumin 3.7 (3.5-5.0) g/dL Globulin 3.1 (1.7-4.1) g/dL Albumin/Globulin Ratio 1.2 (1.0-2.8) Blood Type Antibody Screen 05/21/19 Range/Units 17:10 WBC (4.5-11.0) X10^3/uL RBC (4.5-5.9) X10^6/uL Hgb (13.5-17.5) g/dL Hct (41-53) % MCV (80-100) fL MCH (26-34) PG MCHC (30-36) % RDW (11.6-14.8) % Plt Count (150-400) X10^3/uL Neut % (Auto) (50-75) % Lymph % (Auto) (25-40) % Mcdonald % (Auto) (3-14) % Eos % (Auto) (2-4) % Baso % (Auto) (0-2) % Neut # (Auto) (1170-0944) /uL Lymph # (Auto) (8698-4715) /uL Mcdonald # (Auto) (0-900) /uL Eos # (Auto) (0-450) /uL Baso # (Auto) (0-100) /uL PT (10.1-12.7) SECONDS INR (0.9-1.3) Sodium (137-145) mmol/L Potassium (3.4-5.1) mmol/L Chloride (98-107) mmol/L Carbon Dioxide (22-32) mmol/L BUN (9-20) mg/dL Creatinine (0.66-1.25) mg/dL Estimated GFR (>60) mL/min BUN/Creatinine Ratio (6-22) Glucose (80-110) mg/dL Calcium (8.4-10.2) mg/dL Total Bilirubin (0.2-1.3) mg/dL AST (17-59) IU/L ALT (21-72) IU/L Alkaline Phosphatase (38-126) U/L Total Protein (6.3-8.2) g/dL Albumin (3.5-5.0) g/dL Globulin (1.7-4.1) g/dL Albumin/Globulin Ratio (1.0-2.8) Blood Type A Positive Antibody Screen Negative Discharge Plan Departure Patient Disposition: Home Clinical Impression: GI (gastrointestinal bleed) Qualifiers: GI bleed type/associated pathology: unspecified gastrointestinal hemorrhage type Qualified Code(s): K92.2 - Gastrointestinal hemorrhage, unspecified Discharge Date/Time: 05/21/19 18:58 Interventions: ED Discharge Assessment Last Done: 05/21/19 18:58 Instructions: Gastrointestinal Bleeding Activity Restrictions/Additional Instructions: As we discussed, your hemoglobin is 8.6 today. Given that you are not dizzy or lightheaded, this is not low enough to need transfusion. As we discussed, your Coumadin is making more likely to bleed. However you would rather continue your Coumadin and risk increased GI bleeding then take the risk of stroke. Please follow up with Dr. Kessler as soon as possible. I think it is likely he will need another colonoscopy. Please come back to emergency department for any acute concerns such as chest pain, shortness of breath lightheadedness, dizziness or severe bleeding. Prescriptions: No Action cholecalciferol (vitamin D3) [Vitamin D3] 1,000 unit Capsule 1,000 unit PO DAILY Qty: 0 RF: 0 metoprolol succinate [Toprol XL] 25 MG tablet extended release 24 hr 25 mg PO DAILY Qty: 0 RF: 0 omeprazole 20 mg tablet,delayed release (DR/EC) 20 mg PO BID Qty: 60 RF: 3 furosemide 40 mg tablet 80 mg PO QAM RF: 0 levothyroxine 25 mcg tablet 25 mcg PO DAILY RF: 0 tamsulosin 0.4 mg capsule 0.4 mg PO DAILY RF: 0 levothyroxine 125 mcg tablet 125 mcg PO DAILY RF: 0 warfarin 5 mg tablet 5 mg PO Q OTHER DAY RF: 0 losartan 25 mg tablet 25 mg PO QPM RF: 0 allopurinol 300 mg tablet 300 mg PO DAILY RF: 0 Spiriva Respimat 2.5 mcg/actuation mist 1 puff inhalation DAILY RF: 0 furosemide 40 mg tablet 40 mg PO DAILY RF: 0 warfarin 5 mg tablet 2.5 mg PO Q OTHER DAY RF: 0 Inhaler 1 puff inhalation QPM RF: 0 Referrals: Sergio Kessler MD [Primary Care Provider] - <Silvia Butts DO - Last Filed: 05/21/19 20:04> Cosign ED Attending Cosignature Attestation: I was immediately available in the department for consultation. This documentation has been reviewed and I agree with assessment and plan. Supervised by Silvia Butts DO
--- NOTE | 2019-05-21 19:45 | ED_ITS ---
HPI - GI Bleed <Silvia Corcoranmer, [employer]LLNESS DIRECTOR-BC - Last Filed: 05/21/19 19:47> General Chief complaint: GI Bleed Stated complaint: blood in stool for past month Time Seen by Provider: 05/21/19 17:03 Source: patient and family Mode of arrival: ambulatory Limitations: no limitations History of Present Illness HPI Narrative: The patient is an 79-year-old male former smoker who presents with his for chief complaint of needing a transfusion. He states he has had gastrointestinal bleeding for the past several months. He denies any lightheadedness or dizziness. He denies any chest pain or abnormal shortness of breath. He states that he was seen at his PCP, they called him stating that his hemoglobin was very low and he might need a transfusion. He denies any abdominal pain. He does take Coumadin due to atrial fibrillation. He states he thinks that his hemoglobin was 6 today. Related Data Home Medications Medication Instructions Recorded Confirmed cholecalciferol (vitamin D3) 1,000 unit PO DAILY #0 05/31/12 05/21/19 [Vitamin D3] metoprolol succinate [Toprol XL] 25 mg PO DAILY #0 10/09/17 05/21/19 Inhaler 1 puff INHALATION QPM 05/21/19 05/21/19 allopurinol 300 mg PO DAILY 05/21/19 05/21/19 furosemide 40 mg PO DAILY 05/21/19 05/21/19 furosemide 80 mg PO QAM 05/21/19 05/21/19 levothyroxine 25 mcg PO DAILY 05/21/19 05/21/19 levothyroxine 125 mcg PO DAILY 05/21/19 05/21/19 losartan 25 mg PO QPM 05/21/19 05/21/19 tamsulosin 0.4 mg PO DAILY 05/21/19 05/21/19 tiotropium bromide [Spiriva 1 puff INHALATION DAILY 05/21/19 05/21/19 Respimat] warfarin 2.5 mg PO Q OTHER DAY 05/21/19 05/21/19 warfarin 5 mg PO Q OTHER DAY 05/21/19 05/21/19 Previous Rx's Medication Instructions Recorded omeprazole 20 mg tablet,delayed 20 mg PO BID #60 tab 07/17/18 release Allergies Allergy/AdvReac Type Severity Reaction Status Date / Time No Known Drug Allergies Allergy Verified 03/12/18 09:02 Review of Systems <DELVIN Velazquez - Last Filed: 05/21/19 19:47> Review of Systems GENERAL: See HPI HEENT: Denies sinus pain, ear pain, sore throat, difficulty swallowing, dizziness. RESPIRATORY: Denies dyspnea, cough, wheezing, hemoptysis, sputum. CARDIOVASCULAR: Denies chest pain, palpitations, orthopnea, edema, GASTROINTESTINAL: See HPI : Denies dysuria, frequency, incontinence, hematuria, urinary retention. MUSCULOSKELETAL: denies weakness, joint pain, or bony pain SKIN: Denies rash, skin lesions, or other NEUROLOGIC: Denies weakness, headache, numbness, change in speech, confusion, seizures, incoordination. PSYCHIATRIC: No concerning psychosocial issues. 12 point review of systems is negative except for those stated above PFSH <DELVIN Velazquez - Last Filed: 05/21/19 19:47> Medical History Atrial fibrillation (Acute) Partial blindness (Acute) History of prostate cancer (Inactive) History of radiation therapy (Inactive) Social History (Updated 03/12/18 @ 10:00 by Meng Grande MD) household members: spouse Smoking Status: Former smoker Social History household members: spouse Smoking Status: Former smoker Exam <DELVIN Velazquez - Last Filed: 05/21/19 19:47> Narrative Exam Narrative: GENERAL: Obese gentleman sitting on stretcher in no acute distress HEAD: Atraumatic. Normocephalic. No temporal or scalp tenderness. EYES: Pupils equal round and reactive. Extraocular motions intact. No scleral icterus. No injection or drainage. ENT: Nose without bleeding, purulent drainage or septal hematoma. Throat without erythema, tonsillar hypertrophy or exudate. Uvula midline. Airway patent. NECK: Trachea midline. No JVD or lymphadenopathy. Supple, nontender, no meningeal signs. CARDIOVASCULAR: Regular rate and irregular rhythm RESPIRATORY: Clear to auscultation. Breath sounds equal bilaterally. No wheezes, rales, or rhonchi. No cough. No increased respiratory effort. No accessory muscle use. GASTROINTESTINAL: Abdomen soft, non-tender, nondistended. No hepato- splenomegaly, or palpable masses. No guarding. Active bowel sounds all 4 quad rants EXTREMITIES: No clubbing, cyanosis, or edema. No joint tenderness, effusion, or edema noted. BACK: Nontender without deformity or crepitance. No flank tenderness. NEURO: AOx3. SKIN: No rash or erythema. Initial Vital Signs Initial Vital Signs: Vital Signs Temperature 97.3 F L 05/21/19 16:40 Pulse Rate 85 05/21/19 16:40 Respiratory Rate 20 05/21/19 16:40 Blood Pressure 111/72 05/21/19 16:40 Pulse Oximetry 98 05/21/19 16:40 <DO Tessie Baker Last Filed: 05/21/19 20:04> Initial Vital Signs Initial Vital Signs: Vital Signs Temperature 97.3 F L 05/21/19 16:40 Pulse Rate 85 05/21/19 16:40 Respiratory Rate 20 05/21/19 16:40 Blood Pressure 111/72 05/21/19 16:40 Pulse Oximetry 98 05/21/19 16:40 Course <DELVIN Velazquez - Last Filed: 05/21/19 19:47> Orders Ordered: ED Orders 05/21/19 17:10 CBC [Complete Blood Count AUTO DIFF] Stat Comprehensive Metabolic Panel Stat Prothrombin Time INR Stat Type and Screen Stat Vital Signs - 8 hr 05/21/19 16:40 05/21/19 18:58 Temperature 97.3 F L Pulse Rate 85 64 Respiratory Rate 20 20 Blood Pressure 111/72 127/87 Pulse Oximetry 98 97 <DO Tessie Baker Last Filed: 05/21/19 20:04> Orders Ordered: ED Orders 05/21/19 17:10 CBC [Complete Blood Count AUTO DIFF] Stat Comprehensive Metabolic Panel Stat Prothrombin Time INR Stat Type and Screen Stat Vital Signs - 8 hr 05/21/19 16:40 05/21/19 18:58 Temperature 97.3 F L Pulse Rate 85 64 Respiratory Rate 20 20 Blood Pressure 111/72 127/87 Pulse Oximetry 98 97 MDM - GI Bleed <DELVIN Velazquez - Last Filed: 05/21/19 19:47> Lab Data Result diagrams: 05/21/19 17:10 05/21/19 17:10 Lab Results 05/21/19 05/21/19 05/21/19 Range/Units 17:10 17:10 17:10 WBC 3.7 L (4.5-11.0) X10^3/uL RBC 2.71 L (4.5-5.9) X10^6/uL Hgb 8.6 L (13.5-17.5) g/dL Hct 26.7 L (41-53) % MCV 98.3 (80-100) fL MCH 31.6 (26-34) PG MCHC 32.1 (30-36) % RDW 15.5 H (11.6-14.8) % Plt Count 192 (150-400) X10^3/uL Neut % (Auto) 68.3 (50-75) % Lymph % (Auto) 18.8 L (25-40) % Archer % (Auto) 10.3 (3-14) % Eos % (Auto) 1.3 L (2-4) % Baso % (Auto) 1.3 (0-2) % Neut # (Auto) 2600 (9107-0200) /uL Lymph # (Auto) 700 L (0655-9950) /uL Archer # (Auto) 400 (0-900) /uL Eos # (Auto) 0 (0-450) /uL Baso # (Auto) 0 (0-100) /uL PT 33.2 H (10.1-12.7) SECONDS INR 2.8 H (0.9-1.3) Sodium 142 (137-145) mmol/L Potassium 4.3 (3.4-5.1) mmol/L Chloride 111 H (98-107) mmol/L Carbon Dioxide 23 (22-32) mmol/L BUN 46 H (9-20) mg/dL Creatinine 2.30 H (0.66-1.25) mg/dL Estimated GFR 27.5 L (>60) mL/min BUN/Creatinine Ratio 20.0 (6-22) Glucose 98 (80-110) mg/dL Calcium 9.4 (8.4-10.2) mg/dL Total Bilirubin 0.7 (0.2-1.3) mg/dL AST 24 (17-59) IU/L ALT 16 L (21-72) IU/L Alkaline Phosphatase 293 H (38-126) U/L Total Protein 6.8 (6.3-8.2) g/dL Albumin 3.7 (3.5-5.0) g/dL Globulin 3.1 (1.7-4.1) g/dL Albumin/Globulin Ratio 1.2 (1.0-2.8) Blood Type Antibody Screen 05/21/19 Range/Units 17:10 WBC (4.5-11.0) X10^3/uL RBC (4.5-5.9) X10^6/uL Hgb (13.5-17.5) g/dL Hct (41-53) % MCV (80-100) fL MCH (26-34) PG MCHC (30-36) % RDW (11.6-14.8) % Plt Count (150-400) X10^3/uL Neut % (Auto) (50-75) % Lymph % (Auto) (25-40) % Archer % (Auto) (3-14) % Eos % (Auto) (2-4) % Baso % (Auto) (0-2) % Neut # (Auto) (4934-2422) /uL Lymph # (Auto) (8284-6853) /uL Archer # (Auto) (0-900) /uL Eos # (Auto) (0-450) /uL Baso # (Auto) (0-100) /uL PT (10.1-12.7) SECONDS INR (0.9-1.3) Sodium (137-145) mmol/L Potassium (3.4-5.1) mmol/L Chloride (98-107) mmol/L Carbon Dioxide (22-32) mmol/L BUN (9-20) mg/dL Creatinine (0.66-1.25) mg/dL Estimated GFR (>60) mL/min BUN/Creatinine Ratio (6-22) Glucose (80-110) mg/dL Calcium (8.4-10.2) mg/dL Total Bilirubin (0.2-1.3) mg/dL AST (17-59) IU/L ALT (21-72) IU/L Alkaline Phosphatase (38-126) U/L Total Protein (6.3-8.2) g/dL Albumin (3.5-5.0) g/dL Globulin (1.7-4.1) g/dL Albumin/Globulin Ratio (1.0-2.8) Blood Type A Positive Antibody Screen Negative MDM Narrative Medical decision making narrative: The patient is an 79-year-old male who presents with a chief complaint of GI bleeding for the past several months. He states that he had a Hemoccult today, which was positive and he does not want a repeat 1 in the emergency department. Chart review does a history of positive Hemoccult from PCP's office. The patient has a hemoglobin of 8.6, and denies any lightheadedness or dizziness. He states he feels okay. I do not believe he needs a transfusion at this point time, and the patient is were comfortable with that. Upon learning his hemoglobin was 8.6, his states oh he does not need a transfusion.I did discuss at length with the patient the pros and cons of stopping his Coumadin given his GI bleed. We discussed that if he continues his Coumadin, he is at risk of bleeding to . We discussed that if he stops his Coumadin, he is at risk of having a stroke. The patient states that he would rather continue his Coumadin. I discussed at length coming back to the ER for any acute concerns such as lightheadedness or GI bleeding. I encouraged follow-up with PCP as I feel as though the patient would benefit from a colonoscopy. Patient and state understanding, stated understanding of risks of continuing Coumadin. They have no questions or concerns upon discharge <Silvia Butts, DO - Last Filed: 05/21/19 20:04> Lab Data Lab Results 05/21/19 05/21/19 05/21/19 Range/Units 17:10 17:10 17:10 WBC 3.7 L (4.5-11.0) X10^3/uL RBC 2.71 L (4.5-5.9) X10^6/uL Hgb 8.6 L (13.5-17.5) g/dL Hct 26.7 L (41-53) % MCV 98.3 (80-100) fL MCH 31.6 (26-34) PG MCHC 32.1 (30-36) % RDW 15.5 H (11.6-14.8) % Plt Count 192 (150-400) X10^3/uL Neut % (Auto) 68.3 (50-75) % Lymph % (Auto) 18.8 L (25-40) % Archer % (Auto) 10.3 (3-14) % Eos % (Auto) 1.3 L (2-4) % Baso % (Auto) 1.3 (0-2) % Neut # (Auto) 2600 (7828-7584) /uL Lymph # (Auto) 700 L (9038-1303) /uL Archer # (Auto) 400 (0-900) /uL Eos # (Auto) 0 (0-450) /uL Baso # (Auto) 0 (0-100) /uL PT 33.2 H (10.1-12.7) SECONDS INR 2.8 H (0.9-1.3) Sodium 142 (137-145) mmol/L Potassium 4.3 (3.4-5.1) mmol/L Chloride 111 H (98-107) mmol/L Carbon Dioxide 23 (22-32) mmol/L BUN 46 H (9-20) mg/dL Creatinine 2.30 H (0.66-1.25) mg/dL Estimated GFR 27.5 L (>60) mL/min BUN/Creatinine Ratio 20.0 (6-22) Glucose 98 (80-110) mg/dL Calcium 9.4 (8.4-10.2) mg/dL Total Bilirubin 0.7 (0.2-1.3) mg/dL AST 24 (17-59) IU/L ALT 16 L (21-72) IU/L Alkaline Phosphatase 293 H (38-126) U/L Total Protein 6.8 (6.3-8.2) g/dL Albumin 3.7 (3.5-5.0) g/dL Globulin 3.1 (1.7-4.1) g/dL Albumin/Globulin Ratio 1.2 (1.0-2.8) Blood Type Antibody Screen 05/21/19 Range/Units 17:10 WBC (4.5-11.0) X10^3/uL RBC (4.5-5.9) X10^6/uL Hgb (13.5-17.5) g/dL Hct (41-53) % MCV (80-100) fL MCH (26-34) PG MCHC (30-36) % RDW (11.6-14.8) % Plt Count (150-400) X10^3/uL Neut % (Auto) (50-75) % Lymph % (Auto) (25-40) % Archer % (Auto) (3-14) % Eos % (Auto) (2-4) % Baso % (Auto) (0-2) % Neut # (Auto) (8000-8192) /uL Lymph # (Auto) (2628-2875) /uL Archer # (Auto) (0-900) /uL Eos # (Auto) (0-450) /uL Baso # (Auto) (0-100) /uL PT (10.1-12.7) SECONDS INR (0.9-1.3) Sodium (137-145) mmol/L Potassium (3.4-5.1) mmol/L Chloride (98-107) mmol/L Carbon Dioxide (22-32) mmol/L BUN (9-20) mg/dL Creatinine (0.66-1.25) mg/dL Estimated GFR (>60) mL/min BUN/Creatinine Ratio (6-22) Glucose (80-110) mg/dL Calcium (8.4-10.2) mg/dL Total Bilirubin (0.2-1.3) mg/dL AST (17-59) IU/L ALT (21-72) IU/L Alkaline Phosphatase (38-126) U/L Total Protein (6.3-8.2) g/dL Albumin (3.5-5.0) g/dL Globulin (1.7-4.1) g/dL Albumin/Globulin Ratio (1.0-2.8) Blood Type A Positive Antibody Screen Negative Discharge Plan Departure Patient Disposition: Home Clinical Impression: GI (gastrointestinal bleed) Qualifiers: GI bleed type/associated pathology: unspecified gastrointestinal hemorrhage type Qualified Code(s): K92.2 - Gastrointestinal hemorrhage, unspecified Discharge Date/Time: 05/21/19 18:58 Interventions: ED Discharge Assessment Last Done: 05/21/19 18:58 Instructions: Gastrointestinal Bleeding Activity Restrictions/Additional Instructions: As we discussed, your hemoglobin is 8.6 today. Given that you are not dizzy or lightheaded, this is not low enough to need transfusion. As we discussed, your Coumadin is making more likely to bleed. However you would rather continue your Coumadin and risk increased GI bleeding then take the risk of stroke. Please follow up with Dr. Kessler as soon as possible. I think it is likely he will need another colonoscopy. Please come back to emergency department for any acute concerns such as chest pain, shortness of breath lightheadedness, dizziness or severe bleeding. Prescriptions: No Action cholecalciferol (vitamin D3) [Vitamin D3] 1,000 unit Capsule 1,000 unit PO DAILY Qty: 0 RF: 0 metoprolol succinate [Toprol XL] 25 MG tablet extended release 24 hr 25 mg PO DAILY Qty: 0 RF: 0 omeprazole 20 mg tablet,delayed release (DR/EC) 20 mg PO BID Qty: 60 RF: 3 furosemide 40 mg tablet 80 mg PO QAM RF: 0 levothyroxine 25 mcg tablet 25 mcg PO DAILY RF: 0 tamsulosin 0.4 mg capsule 0.4 mg PO DAILY RF: 0 levothyroxine 125 mcg tablet 125 mcg PO DAILY RF: 0 warfarin 5 mg tablet 5 mg PO Q OTHER DAY RF: 0 losartan 25 mg tablet 25 mg PO QPM RF: 0 allopurinol 300 mg tablet 300 mg PO DAILY RF: 0 Spiriva Respimat 2.5 mcg/actuation mist 1 puff inhalation DAILY RF: 0 furosemide 40 mg tablet 40 mg PO DAILY RF: 0 warfarin 5 mg tablet 2.5 mg PO Q OTHER DAY RF: 0 Inhaler 1 puff inhalation QPM RF: 0 Referrals: Sergio Kessler MD [Primary Care Provider] - <Silvia Butts DO - Last Filed: 05/21/19 20:04> Cosign ED Attending Cosignature Attestation: I was immediately available in the department for consultation. This documentation has been reviewed and I agree with assessment and plan. Supervised by Silvia Butts DO
== END 2019-05-21 18:58 | disposition home or self-care (01) ==
PROVIDERS: Emergency Medicine; Emergency Provider Nurse Practitioner Family; Family Provider Internal Medicine Cardiovascular Disease; PCP Family Medicine
DX: K92.2 Gastrointestinal hemorrhage, unspecified (principal)
CPT/HCPCS: 36415; 80053; 85025; 85610; 86850; 86900; 86901; 99282; 99283

== ENCOUNTER → 2019-07-02 11:37 | Outpatient (CLI) | payer MEDICARE, OTHER, SELFPAY ==
--- NOTE | 2019-07-02 | DI.RAD.S_ITS ---
PROCEDURE: XR HIP W PEL IF DONE RT 2V INDICATIONS: HIP PAIN TECHNIQUE: AP pelvis with lateral view(s) of the right hip(s). COMPARISON: None. FINDINGS: Bones: No fractures or dislocations. Pelvic ring appears intact. No suspicious bony lesions. Mild symmetric hip joint osteoarthritis is noted. Soft tissues: The visualized bowel gas pattern is normal. No suspicious soft tissue calcifications. Prostate radiation therapy seed implants over the midline of the low pelvis. IMPRESSION: Prostate radiation therapy seed implants over the midline of the low pelvis, no pelvic trauma or evidence of neoplasm is found. Source of current asymmetric right hip pain is not found. Symmetric mild hip joint osteoarthritis is noted. Dictated by: Nicolas Lai M.D. on 07/02/2019 at 12:16 Approved by: Nicolas Lai M.D. on 07/02/2019 at 12:17
--- NOTE | 2019-07-02 | DI.RAD.S_ITS ---
PROCEDURE: XR LUMBAR SPINE 2-3V INDICATIONS: LOW BACK PAIN TECHNIQUE: 3 views of the lumbar spine were acquired. COMPARISON: [facility], MR, L-SPINE WITHOUT CONTRAST, 07/22/2014, 13:57. [facility], US, CAROTID ARTERY DOPPLER BILAT, 11/02/2014, 13:14. [facility], CR, L-SPINE 2-3 VIEWS, 11/05/2009, 10:51. FINDINGS: Bones: 5 [id number] vertebrae are present. There is normal bony alignment. No vertebral body compression fractures. No suspicious bony lesions. The degree of degenerative disc disease and facet osteoarthritis there is moderately severe along the middle and lower thirds of the lumbosacral line is not appreciably worsened from an MR scan available from 07/22/14. Soft tissues: Overlying bowel gas pattern is normal. No suspicious soft tissue calcifications. IMPRESSION: Degenerative disc disease and facet osteoarthritis has been previously present, moderately severe overall, without change from MR scanning in June of 2014. A source of new pain is not found. Dictated by: Nicolas Lia M.D. on 07/02/2019 at 12:21 Approved by: Nicolas Lai M.D. on 07/02/2019 at 12:24
== END ==
PROVIDERS: Family Provider Internal Medicine Cardiovascular Disease; PCP Family Medicine; Visit Provider Family Medicine
DX: M54.5 Low back pain (principal); M16.11 Unilateral primary osteoarthritis, right hip; M25.551 Pain in right hip; M51.37 Other intervertebral disc degeneration, lumbosacral region; M47.817 Spondylosis without myelopathy or radiculopathy, lumbosacral region
CPT/HCPCS: 72100; 73502

== ENCOUNTER → 2019-11-06 11:44 | Outpatient (CLI) | payer MEDICARE, OTHER, SELFPAY ==
--- NOTE | 2019-11-06 | DI.RAD.S_ITS ---
PROCEDURE: XR CHEST 2V INDICATIONS: BRONCHITIS TECHNIQUE: 2 views of the chest were acquired. COMPARISON: [facility], CHEST 2 VIEW, 04/03/2017, 9:06. [facility], CHEST 2 VIEW, 04/25/2017, 13:41. FINDINGS: Surgical changes and devices: None. Lungs and pleura: There is mild parahilar interstitial prominence. No focal consolidation pleural effusion. No pneumothorax. Mediastinum: Mediastinal contours are normal. Heart size is normal. Bones and chest wall: No suspicious bony abnormalities. Soft tissues appear unremarkable. IMPRESSION: No acute cardiopulmonary disease. Dictated by: Patti Cervantes M.D. on 11/06/2019 at 12:10 Approved by: Patti Cervantes M.D. on 11/06/2019 at 12:13
== END ==
PROVIDERS: Family Provider Internal Medicine Cardiovascular Disease; PCP Family Medicine; Visit Provider Family Medicine
DX: J40 Bronchitis, not specified as acute or chronic (principal)
CPT/HCPCS: 71046

== ENCOUNTER → 2020-05-17 13:20 | Outpatient (CLI) | payer MEDICARE, OTHER, SELFPAY ==
[2020-05-18 19:54] LABS: COVID19 Sendout Not Detected (Not Detect)
== END ==
PROVIDERS: Family Provider Internal Medicine Cardiovascular Disease; PCP Family Medicine; Visit Provider Nurse Practitioner
DX: Z01.812 Encounter for preprocedural laboratory examination (principal)
CPT/HCPCS: 87635

== ENCOUNTER 2020-05-20 07:24 | Day surgery (SDC) | payer MEDICARE, OTHER, SELFPAY ==
[2020-05-20] VITALS (9 sets, daily range): BP systolic 90–114; BP diastolic 59–70; PULSE 70–81; RESP 10–18; TEMP 35.9–36.6; O2SAT 93–100; BMI 28.3
--- NOTE | 2020-05-20 | PATH_ITS ---
[facility] Accession Number: [id number] . 01 Material submitted: . PART A: colon - CECAL BIOPSY PART B: ileo-cecal valve - ILEOCECAL VALVE POLYP PART C: colon - POLYP AT 80CM PART D: colon - POLYP AT 15CM . 02 Diagnosis: A. Cecal Biopsy: Superficial portions of colorectal mucosa with focal active inflammation. . B. Ileocecal Valve Polyp: Tubular adenoma. . C. Polyp at 80 cm, Biopsies: Portion of tubular adenoma x1. Superficial portion of colorectal mucosa x1 with no significant histomorphologic abnormality. . D. Polyp at 25 cm, Biopsy: Portions of hyperplastic polyp x2. [facility] 05/24/2020 1810 Local . 02 Comment: Part A: Crypt architecture is preserved. There is mild, patchy active inflammation. No granulomas, regions of dysplasia, or malignancy are identified. The differential diagnosis includes the effect of medication, infection, a diverticular disease associated colitis, and inflammatory bowel disease, in the appropriate clinical setting. . 02 Electronically signed: . Sharon Parker MD, Pathologist NPI- [id number] . 01 Gross description: . Part A: CECAL BIOPSY: Received in formalin are 3 fragment(s) of aburto, soft tissue measuring 0.6 x 0.2 x 0.1 cm to 0.2 x 0.2 x 0.1 cm submitted entirely in 1 cassette(s) Part B: ILEOCECAL VALVE POLYP: Received in formalin is 1 fragment(s) of aburto, soft tissue measuring 0.3 x 0.1 x 0.1 cm submitted entirely in 1 cassette(s) Part C: POLYP AT 80CM: Received in formalin are 2 fragment(s) of aburto, soft tissue measuring 0.3 x 0.2 x 0.1 cm to 0.2 x 0.2 x 0.1 cm submitted entirely in 1 cassette(s) Part D: POLYP AT 15CM: Received in formalin are 2 fragment(s) of aburto, soft tissue measuring 0.3 x 0.3 x 0.2 cm to 0.3 x 0.2 x 0.2 cm submitted entirely in 1 cassette(s) /QBJ 05/21/2020 0752 Local . 02 Pathologist provided ICD-10: K63.5, R19.5 . 02 CPT . 784045, 124640, 034708, 399089 Performed at: 01 [facility] [address] [place] [address], [place], [place] [id number] MD Michael Mirza MD Phone: [phone] Performed at: 02 [facility] [address] [place], [place] [id number] MD Lisa Davis MD Phone: [phone]
--- NOTE | 2020-05-20 08:22 | PM.PREOP ---
Pre-operative Note COVID-19 COVID-19 status: Negative Result date/Date tested (Pos, Neg/Pending): 05/17/20 Interval Note History & Physical reviewed/Exam performed by Physician: Yes Changes to H&P: No ASA Class (for procedural sedation): III
[2020-05-20] MEDS: MIDAZOLAM 5 MG/5 ML VIAL IV (09:19)
[2020-05-20] MEDS: fentaNYL 250 MCG/5 ML INJ IV (09:20)
--- NOTE | 2020-05-20 09:20 | PM.OP.ENDO ---
Operative Date/Time/Diagnoses Date of procedure: 05/20/20 Time of procedure: 09:20 Pre-op diagnosis: Positive fit test Post-op diagnosis: same (Localized inflammation in the region of the cecum. Diverticulosis principally of the sigmoid. Normal upper endoscopy. Small polyps in the colon) Procedure & Clinicians Study performed: EGD. Colonoscopy with cold biopsy. Same procedure as scheduled: Yes Indications: Positive fit test. Last colonoscopy 3 years ago. Surgeon: Meng Grande Procedure Notes SCOAP/Timeout: Performed Procedure in detail: The patient had topical anesthetic applied to oropharynx. She was placed in left lateral decubitus position and underwent IV sedation directed by the surgeon consisting of fentanyl and Versed. A bite block was inserted and the scope was advanced through it into the esophagus. The esophagus was unremarkable. GE junction was noted at 44 cm. The stomach insufflated well. There were no lesions seen in the body, antrum or at the incisura. The pyloric channel was widely patent. The duodenum was unremarkable to the 4th part. The scope was brought back into the stomach and retroflexed. The proximal stomach was normal in appearance. The scope was straightened and brought out through the esophagus again. No lesions were seen. The scope was removed and the patient tolerated the procedure well. Patient was reposition. The patient was given additional sedation. Digital exam was unremarkable except for a non palpable prostate.. The scope was inserted and advanced through the rectum into the sigmoid, descending, transverse, and ascending colon. Patient had extensive sigmoid diverticulosis with tortuosity and mild narrowing. There were occasional diverticuli elsewhere in the colon.. The cecum was reached identified by the ileocecal valve and the appendiceal opening. The ileocecal valve was successfully cannulated. The terminal ileum was normal in appearance. There was a very small polyp near the ileocecal valve which was biopsied and removed. There was also under a very localized area of inflammation of the mucosa beginning in a portion of the cecum extending for very short area beyond the cecum into the ascending colon. It probably did not expand more than 5 cm. Biopsies were taken of this area. In taking the biopsies the mucosa lifted easily off the underlying tissue. The scope was gradually brought out. Polyps were found at 80 cm from the anal verge and at 15 cm from the anal verge. These were all small polyps.. The scope ultimately was retroflexed in the rectum. The appearance was normal. The scope was removed and the patient tolerated the procedure well. Prep was very good. Scope withdrawal time: 12 minutes(15.5 total) Sedation minutes: 44 Findings: diverticulosis (Principally the sigmoid colon but scattered elsewhere throughout the colon), polyp (Three very small polyps.) and other findings (Very localized inflammation near the cecum. May well be the source of a positive fit test.) Specimen(s): other (Polyps and colon biopsies of the inflamed area) Complications: none Post-procedure Recommendations: Colonscopy in 5 years (If in good health), Will call with biopsy results and Other recommendation (Further recommendations depending upon the biopsy results.) Follow up: as needed Disposition: PACU
[2020-05-20] MEDS: LIDOCAINE 4% SOLN 50 ML 20 ML TOP (09:21)
--- NOTE | 2020-05-20 09:44 | SUR.PHASEI ---
Stable PACU stay, slow to wake up.
--- NOTE | 2020-05-20 10:28 | SUR.PHASEII ---
when removing PIV, skin teared slightly. Allevyn dressing applied, Explained to pt and that allevyn can stay on for a week and that dressing can be pulled back and reapplied easily. They will monitor skin tear.
== END 2020-05-20 10:27 | disposition home or self-care (01) ==
PROVIDERS: Family Provider Internal Medicine Cardiovascular Disease; PCP Family Medicine; Referring Provider Specialist; Visit Provider Specialist
PROC: 0DJ08ZZ Inspection of Upper Intestinal Tract, Via Natural or Artificial Opening Endoscopic (ICD-10-PCS; CPT 43235; principal; 2020-05-20 08:45)
PROC: 0DJD8ZZ Inspection of Lower Intestinal Tract, Via Natural or Artificial Opening Endoscopic (ICD-10-PCS; CPT 45378; 2020-05-20 08:45)
DX: R19.5 Other fecal abnormalities (principal); K57.30 Diverticulosis of large intestine without perforation or abscess without bleeding; D12.0 Benign neoplasm of cecum
CPT/HCPCS: 45380; 99152; 99153; J2250; J3010

== ENCOUNTER 2021-04-23 11:03 | Emergency (ER) | payer MEDICARE, OTHER, SELFPAY ==
[2021-04-23 11:27] VITALS: BP 108/62; PULSE 90; RESP 18; TEMP 36.1; O2SAT 100; BMI 29.1
[2021-04-23] MEDS: TET,DIPH,PERTUSS(ACELL),VAC/PF 0.5 ML SYRINGE IM (12:14)
[2021-04-23 12:26] LABS: INR 2.1 (0.9-1.3); Prothrombin Time 23.8 SECONDS (10.1-12.7)
[2021-04-23 12:28] LABS: Add Manual Diff / Slide Review NO; Basophils Absolute Auto 0 /uL (0-100); Basophils Percent Auto 0.4 % (0-2); Eosinophils Absolute Auto 100 /uL (0-450); Eosinophils Percent Auto 1.9 % (2-4); Hematocrit 33.9 % (41-53); Hemoglobin 10.8 g/dL (13.5-17.5); Lymphocytes Absolute Auto 700 /uL (1100-4500); Mean Corpuscular Hemoglobin 32.2 PG (26-34); Mean Corpuscular Volume 100.8 fL (80-100); Monocytes Absolute Auto 400 /uL (0-900); Monocytes Percent Auto 9.8 % (3-14); Neutrophils Absolute Auto 3000 /uL (1500-7000); Neutrophils Percent Auto 71.9 % (50-75); Platelet Count 147 X10^3/uL (150-400); Red Blood Cell Count 3.37 X10^6/uL (4.5-5.9); Red Cell Distribution Width 16.8 % (11.6-14.8); White Blood Cell Count 4.2 X10^3/uL (4.5-11.0)
[2021-04-23 12:33] LABS: Alanine Aminotransferase 15 IU/L (<50); Albumin 3.7 g/dL (3.5-5.0); Albumin Globulin Ratio 1.2 (1.0-2.8); Alkaline Phosphatase 374 U/L (38-126); Aspartate Aminotransferase 38 IU/L (17-59); BUN Creatinine Ratio 15.6 (6-22); Blood Urea Nitrogen 53 mg/dL (9-20); Calcium 9.4 mg/dL (8.4-10.2); Carbon Dioxide 23 mmol/L (22-32); Chloride 108 mmol/L (98-107); Estimated Glomerular Filt Rate 17.4 mL/min (>60); Globulin 3.1 g/dL (1.7-4.1); Glucose 99 mg/dL (80-110); HEMOLYSIS < 15 (0-50); Lactate (Lactic Acid) 1.1 mmol/L (0.7-2.1); Lipase 137 U/L (23-300); Potassium 4.2 mmol/L (3.4-5.1); Sodium 140 mmol/L (137-145); Total Protein 6.8 g/dL (6.3-8.2)
[2021-04-23 12:49] LABS: Procalcitonin 0.21 ng/mL (<0.5)
--- NOTE | 2021-04-23 12:55 | ED_ITS ---
HPI - Extremity Injury (Lower) General Chief Complaint: Extremity Injury, Lower Stated Complaint: puncture wound on ankle from a wire Time Seen by Provider: 04/23/21 12:55 Source: patient and family ( ) Mode of arrival: Family Vehicle Limitations: no limitations History of Present Illness HPI Narrative: this is a 81-year-old male comes emergency department with complaint of having a wire from an outdoor in closure poke him in the leg about a week and half ago. Patient has noted some redness and had not been healing with follow-up with primary care who gave them a prescription for topical mupirocin and patient has been applying it regularly without any improvement. They proceeded increasing swelling and some possible drainage. patient is not having any particular pain in the area. He denies any fevers or chills. He does have some swelling in the leg but has chronic swelling bilaterally. Isa joyner has not had issues with wound healing in the past. he does have a history of atrial fibrillation, he is on warfarin for anticoagulation as well as medications for hypertension, hypothyroidism and daily Lasix. Patient denies any allergies to medications. he has not appreciate any numbness, tingling weakness in his extremities otherwise. Related Data Home Medications Medication Instructions Recorded Confirmed cholecalciferol (vitamin D3) 1,000 unit PO DAILY #0 05/31/12 05/20/20 [Vitamin D3] allopurinol 300 mg PO DAILY 05/21/19 05/20/20 levothyroxine 25 mcg PO DAILY 05/21/19 05/20/20 levothyroxine 125 mcg PO DAILY 05/21/19 05/20/20 losartan 25 mg PO QPM 05/21/19 05/20/20 tamsulosin 0.4 mg PO DAILY 05/21/19 05/20/20 warfarin 2.5 mg PO DAILY 05/21/19 05/20/20 ferrous sulfate 325 mg (65 mg 325 mg PO DAILY 04/29/20 05/20/20 iron) tablet furosemide 40 mg tablet 80 mg PO DAILY tab 04/29/20 05/20/20 glycopyrrolate 9 mcg-formoterol 2 puff INHALATION BID 04/29/20 05/20/20 4.8 mcg HFA aerosol inhaler [id number] acid 0.4 1 tab PO DAILY 04/29/20 05/20/20 mg-lycopene 300 mcg-lutein 250 mcg tablet tiotropium bromide 2.5 2 inhalation INHALATION QAM 04/29/20 05/20/20 mcg/actuation mist for inhalation Previous Rx's Medication Instructions Recorded omeprazole 20 mg tablet,delayed 20 mg PO BID #60 tab 07/17/18 release doxycycline hyclate 100 mg PO BID 10 Days #20 tab 04/23/21 Allergies Allergy/AdvReac Type Severity Reaction Status Date / Time No Known Drug Allergies Allergy Verified 05/20/20 07:49 Review of Systems Review of Systems ROS Unobtainable: All systems reviewed & are unremarkable except as noted in HPI and below Patient History Medical History Asthma Atrial fibrillation History of prostate cancer History of radiation therapy Partial blindness Family History Mother Hypertension Stroke Social History household members: spouse Smoking Status: Former smoker Smoking Status: Former smoker tobacco type: cigarettes alcohol intake frequency: 0-2 drinks per day Substance Use Type: does not use Exam Narrative Exam Narrative: GENERAL: Alert and oriented x three, Male with a BMI of 29 in mild distress. HEENT: Head normocephalic, atraumatic, EOMI, pupils reactive, face symmetric, moist mucous membranes NECK: Supple, full range of motion CARDIOVASCULAR: Regular rate and rhythm without murmurs, rubs or gallops. RESPIRATORY: Breath sounds equal bilaterally, no wheezes rales or rhonchi. ABDOMEN: Soft, nontender. Normoactive bowel sounds all 4 quadrants. No guarding or rebound, rigidity, no mass : No CVA tenderness EXTREMITIES: Normal range of motion, Patient has bilateral lower extremity edema which appears equal left in comparison to right. Patient does have a wound on the left lateral calf which appears to be 0.5 cm in size with little bit of subcutaneous exposure, there is some surrounding erythema extending about 2 cm around and induration present. There is no fluctuance hour and no purulent fluid draining from the site. Patient does have some mild erythema tracking about 3-4 cm surrounding this. Patient is nontender to palpation.. Neurovascularly intact. Pulses are present bilateral lower extremities. Cap refill is negative bilateral lower extremities. NEUROLOGICAL: Cranial nerves II through XII grossly intact. Moving all extremities SKIN: Warm, dry, no petechiae, no rashes or lesions No other changes appreciated. Initial Vital Signs Initial Vital Signs: Vital Signs Temperature 97.0 F L 04/23/21 11:27 Pulse Rate 90 04/23/21 11:27 Respiratory Rate 18 04/23/21 11:27 Blood Pressure 108/62 04/23/21 11:27 Pulse Oximetry 100 04/23/21 11:27 Course Orders Ordered: ED Orders 04/23/21 12:00 Complete Blood Count AUTO DIFF Stat Comprehensive Metabolic Panel Stat Lactate (Lactic Acid) Stat Lipase Stat Procalcitonin Stat Prothrombin Time INR Stat 04/23/21 12:50 Blood Culture Stat Discontinued Medications Diphtheria/Tetanus/Acell Pertussis (Tet,Diph,Pertuss(Acell),Vac/Pf 0.5 Ml Syringe) 0.5 ml IM .ONCE ONE Stop: 04/23/21 12:11 Last Admin: 04/23/21 12:14 Dose: 0.5 ml Documented by: SELINA Ceftriaxone Sodium 1,000 mg/ (Sodium Chloride) 100 mls @ 200 mls/hr IV NOW ONE Stop: 04/23/21 13:34 Last Admin: 04/23/21 14:05 Dose: 200 mls/hr Documented by: SELINA Vital Signs Vital signs: Vital Signs - 8 hr 04/23/21 11:27 04/23/21 13:24 04/23/21 14:55 Temperature 97.0 F L Pulse Rate 90 65 70 Respiratory Rate 18 18 18 Blood Pressure 108/62 106/68 106/65 Pulse Oximetry 100 93 94 MDM - Extremity Injury (Lower) Lab Data Attestation: I reviewed the patient's lab results. Result diagrams: 04/23/21 12:00 04/23/21 12:00 Labs: Lab Results 04/23/21 04/23/21 04/23/21 Range/Units 12:00 12:00 12:00 WBC 4.2 L (4.5-11.0) X10^3/uL RBC 3.37 L (4.5-5.9) X10^6/uL Hgb 10.8 L (13.5-17.5) g/dL Hct 33.9 L (41-53) % MCV 100.8 H (80-100) fL MCH 32.2 (26-34) PG MCHC 32.0 (30-36) % RDW 16.8 H (11.6-14.8) % Plt Count 147 L (150-400) X10^3/uL Neut % (Auto) 71.9 (50-75) % Lymph % (Auto) 16.0 L (25-40) % Kingfisher % (Auto) 9.8 (3-14) % Eos % (Auto) 1.9 L (2-4) % Baso % (Auto) 0.4 (0-2) % Neut # (Auto) 3000 (4634-4194) /uL Lymph # (Auto) 700 L (1999-7543) /uL Kingfisher # (Auto) 400 (0-900) /uL Eos # (Auto) 100 (0-450) /uL Baso # (Auto) 0 (0-100) /uL PT (10.1-12.7) SECONDS INR (0.9-1.3) Sodium 140 (137-145) mmol/L Potassium 4.2 (3.4-5.1) mmol/L Chloride 108 H (98-107) mmol/L Carbon Dioxide 23 (22-32) mmol/L BUN 53 H (9-20) mg/dL Creatinine 3.40 H (0.66-1.25) mg/dL Estimated GFR 17.4 L (>60) mL/min BUN/Creatinine Ratio 15.6 (6-22) Glucose 99 (80-110) mg/dL Lactate 1.1 (0.7-2.1) mmol/L Calcium 9.4 (8.4-10.2) mg/dL Total Bilirubin 1.0 (0.2-1.3) mg/dL AST 38 (17-59) IU/L ALT 15 (<50) IU/L Alkaline Phosphatase 374 H (38-126) U/L Total Protein 6.8 (6.3-8.2) g/dL Albumin 3.7 (3.5-5.0) g/dL Globulin 3.1 (1.7-4.1) g/dL Albumin/Globulin Ratio 1.2 (1.0-2.8) Lipase 137 (23-300) U/L Procalcitonin 0.21 (<0.5) ng/mL 06/26/21 Range/Units 12:00 WBC (4.5-11.0) X10^3/uL RBC (4.5-5.9) X10^6/uL Hgb (13.5-17.5) g/dL Hct (41-53) % MCV (80-100) fL MCH (26-34) PG MCHC (30-36) % RDW (11.6-14.8) % Plt Count (150-400) X10^3/uL Neut % (Auto) (50-75) % Lymph % (Auto) (25-40) % Kingfisher % (Auto) (3-14) % Eos % (Auto) (2-4) % Baso % (Auto) (0-2) % Neut # (Auto) (9596-3367) /uL Lymph # (Auto) (4719-9146) /uL Kingfisher # (Auto) (0-900) /uL Eos # (Auto) (0-450) /uL Baso # (Auto) (0-100) /uL PT 23.8 H (10.1-12.7) SECONDS INR 2.1 H (0.9-1.3) Sodium (137-145) mmol/L Potassium (3.4-5.1) mmol/L Chloride (98-107) mmol/L Carbon Dioxide (22-32) mmol/L BUN (9-20) mg/dL Creatinine (0.66-1.25) mg/dL Estimated GFR (>60) mL/min BUN/Creatinine Ratio (6-22) Glucose (80-110) mg/dL Lactate (0.7-2.1) mmol/L Calcium (8.4-10.2) mg/dL Total Bilirubin (0.2-1.3) mg/dL AST (17-59) IU/L ALT (<50) IU/L Alkaline Phosphatase (38-126) U/L Total Protein (6.3-8.2) g/dL Albumin (3.5-5.0) g/dL Globulin (1.7-4.1) g/dL Albumin/Globulin Ratio (1.0-2.8) Lipase (23-300) U/L Procalcitonin (<0.5) ng/mL MDM Narrative Medical decision making narrative: This is an 81-year-old comes in with puncture wound to the ankle about a week and a half ago with some mild surrounding cellulitis. Patient is not actively draining any pus with no obvious abscess. Patient was started on oral medications. He suggested to have his warfarin le kathya rechecked this week to make sure it does not elevate. Patient does not have any signs of sepsis here in the department. Return precautions are discussed. Patient and family feel comfortable with this pl Discharge Plan Departure Patient Disposition: Home Clinical Impression: Cellulitis of left leg, Leg wound, left Instructions: DI for Wound Infection Activity Restrictions/Additional Instructions: Follow-up with her physician this week for recheck. Your INR today is 2.1, please be aware that antibiotics can sometimes affect your INR so it would be prudent to have it rechecked in the next several days with her primary care physician. Take antibiotics until they are completely gone. [facility] to [facility] Wound Care: Keep wound(s) clean and dry. Wash daily with soap and water only. Do not use over the counter products (alcohol or peroxide)on the wounds unless instructed by a physician. If wound condition worsens (increased/expanding redness, developing fluid blisters, or worsening pain), either contact your doctor for an urgent re- assessment , or return to the Emergency Department. Return to the Emergency Department for any new or worsening symptoms. Return if fever greater than 100.4 Fahrenheit, increased swelling, increasing pain or worsening symptoms such as increased discharge or spreading redness. Prescriptions: New doxycycline hyclate 100 mg tablet 100 mg PO BID 10 Days Qty: 20 RF: 0 No Action cholecalciferol (vitamin D3) [Vitamin D3] 1,000 unit Capsule 1,000 unit PO DAILY Qty: 0 RF: 0 omeprazole 20 mg tablet,delayed release (DR/EC) 20 mg PO BID Qty: 60 RF: 3 Spiriva Respimat 2.5 mcg/actuation mist 2 inhalation INHALATION QAM RF: 0 Bevespi Aerosphere 9-4.8 mcg HFA aerosol inhaler 2 puff INHALATION BID RF: 0 ferrous sulfate [Feosol] 325 mg (65 mg iron) tablet 325 mg PO DAILY RF: 0 Centrum Silver 0.4-300-250 mg-mcg-mcg tablet 1 tab PO DAILY RF: 0 levothyroxine 25 mcg tablet 25 mcg PO DAILY RF: 0 tamsulosin 0.4 mg capsule 0.4 mg PO DAILY RF: 0 levothyroxine 125 mcg tablet 125 mcg PO DAILY RF: 0 losartan 25 mg tablet 25 mg PO QPM RF: 0 allopurinol 300 mg tablet 300 mg PO DAILY RF: 0 warfarin 5 mg tablet 2.5 mg PO DAILY RF: 0 furosemide 40 mg tablet 80 mg PO DAILY RF: 0 Referrals: Sergio Kessler MD [Primary Care Provider] -
[2021-04-23 13:24] VITALS: BP 106/68; PULSE 65; RESP 18; O2SAT 93
[2021-04-23] MEDS: cefTRIAXone 1,000 MG in SODIUM CHLORIDE 0.9% 100 ML 200 ML IV (14:05)
[2021-04-23 14:55] VITALS: BP 106/65; PULSE 70; RESP 18; O2SAT 94
--- NOTE | 2021-04-28 16:08 | PC.NURSE ---
Late entry. 1000mg Ceftriaxone infused, stopped at 1505
== END 2021-04-23 14:55 | disposition home or self-care (01) ==
PROVIDERS: Emergency Provider Emergency Medicine; Family Provider Internal Medicine Cardiovascular Disease; PCP Family Medicine
DX: L03.116 Cellulitis of left lower limb (principal); S91.032A Puncture wound without foreign body, left ankle, initial encounter; Z23 Encounter for immunization
CPT/HCPCS: 36415; 80053; 83605; 83690; 84145; 85025; 85610; 87040; 90471; 96365; 99284; 90715; J0696

== ENCOUNTER → 2021-05-12 10:54 | Outpatient (CLI) | payer MEDICARE, OTHER, SELFPAY ==
--- NOTE | 2021-05-12 | DI.RAD.S_ITS ---
PROCEDURE: XR HIP W PEL IF DONE RT 2V INDICATIONS: RIGHT HIP PAIN TECHNIQUE: AP pelvis with lateral view of the right hip. COMPARISON: [facility], CR, XR HIP W PEL IF DONE RT 2V, 07/02/2019, 11:50. FINDINGS: Bones: No acute fractures or dislocations. Pelvic ring appears intact. No suspicious bony lesions. Minimal symmetric degenerative changes in the hips. Degenerative changes are noted in the included lower lumbar spine. Soft tissues: The visualized bowel gas pattern is normal. No suspicious soft tissue calcifications. Brachytherapy seed implants are again seen projecting over the prostate. Atherosclerotic vascular calcifications are present. IMPRESSION: No acute osseous abnormality. If clinical suspicion and/or symptoms persist, additional imaging with repeat plain films, or advanced imaging (e.g. CT, MRI) may be helpful for further assessment. Dictated by: Mayo Dugan M.D. on 05/12/2021 at 15:37 Approved by: Mayo Dugan M.D. on 05/12/2021 at 15:40
--- NOTE | 2021-05-12 10:59 | DI.RAD.S_ITS ---
PROCEDURE: XR LUMBAR SPINE 2-3V INDICATIONS: RIGHT HIP PAIN TECHNIQUE: 3 views of the lumbar spine were acquired. COMPARISON: [facility], , XR LUMBAR SPINE 2-3V, 07/02/2019, 11:39. FINDINGS: Bones: 5 [id number] vertebrae are present. There is moderate rightward curvature of the mid lumbar spine. Multilevel disc space narrowing and endplate osteophyte formation throughout the lumbar and lower thoracic spine. Mild grade 1 retrolisthesis of L2 on L3. Facet hypertrophy throughout the mid and lower lumbar spine.. No vertebral body compression fractures. No suspicious bony lesions. Soft tissues: Overlying bowel gas pattern is normal. No suspicious soft tissue calcifications. IMPRESSION: Multilevel degenerative disc and facet disease. No acute fracture. No osseous lesion. If symptoms and/or clinical suspicion for pathology persist, further assessment with repeat, or advanced imaging (e.g., CT, MRI, or bone scan) may be helpful for further assessment. Dictated by: Chet Ly M.D. on 05/12/2021 at 14:15 Approved by: Chet Ly M.D. on 05/12/2021 at 14:17
[2021-05-12 12:11] LABS: INR 2.7 (0.9-1.3)
[2021-05-12 12:23] LABS: Add Manual Diff / Slide Review NO; Basophils Absolute Auto 100 /uL (0-100); Basophils Percent Auto 1.4 % (0-2); Eosinophils Absolute Auto 0 /uL (0-450); Eosinophils Percent Auto 0.7 % (2-4); Hematocrit 32.1 % (41-53); Hemoglobin 10.5 g/dL (13.5-17.5); Lymphocytes Absolute Auto 700 /uL (1100-4500); Lymphocytes Percent Auto 13.1 % (25-40); Mean Corpuscular HGB Conc 32.8 % (30-36); Mean Corpuscular Hemoglobin 32.8 PG (26-34); Monocytes Absolute Auto 500 /uL (0-900); Monocytes Percent Auto 8.8 % (3-14); Neutrophils Absolute Auto 4200 /uL (1500-7000); Platelet Count 177 X10^3/uL (150-400); Red Blood Cell Count 3.21 X10^6/uL (4.5-5.9); Red Cell Distribution Width 16.7 % (11.6-14.8); White Blood Cell Count 5.5 X10^3/uL (4.5-11.0)
[2021-05-12 12:40] LABS: Alanine Aminotransferase 12 IU/L (<50); Albumin 3.4 g/dL (3.5-5.0); Albumin Globulin Ratio 1.1 (1.0-2.8); Alkaline Phosphatase 316 U/L (38-126); Aspartate Aminotransferase 32 IU/L (17-59); BUN Creatinine Ratio 16.9 (6-22); Bilirubin Total 1.1 mg/dL (0.2-1.3); Blood Urea Nitrogen 57 mg/dL (9-20); Calcium 9.3 mg/dL (8.4-10.2); Carbon Dioxide 21 mmol/L (22-32); Chloride 109 mmol/L (98-107); Estimated Glomerular Filt Rate 17.6 mL/min (>60); Globulin 3.2 g/dL (1.7-4.1); Glucose 98 mg/dL (80-110); HEMOLYSIS < 15 (0-50); Potassium 4.3 mmol/L (3.4-5.1); Sodium 140 mmol/L (137-145); Total Protein 6.6 g/dL (6.3-8.2)
[2021-05-12 12:57] LABS: T4 Total Thyroxine 7.33 ug/dL (5.5-11.0); T7 (Free Thyroxine Index) 3.45 (1.65-3.89); Triiodothryronine T3 Uptake 47.1 % (23.5-40.5)
[2021-05-12 13:11] LABS: Thyroid Stimulating Hormone 10.3 uIU/mL (0.47-4.68)
== END ==
LOC: LAB 10:56 → RAD 10:58
PROVIDERS: Family Provider Internal Medicine Cardiovascular Disease; PCP Family Medicine; Referring Provider Family Medicine; Visit Provider Family Medicine
DX: M54.5 Low back pain (principal); M51.36 Other intervertebral disc degeneration, lumbar region; M25.551 Pain in right hip; I10 Essential (primary) hypertension; I48.91 Unspecified atrial fibrillation; D50.9 Iron deficiency anemia, unspecified; E03.9 Hypothyroidism, unspecified; E78.49 Other hyperlipidemia; Z79.899 Other long term (current) drug therapy
CPT/HCPCS: 36415; 72100; 73502; 80053; 84436; 84443; 84479; 85025; 85610

== ENCOUNTER → 2021-05-23 10:55 | Outpatient (CLI) | payer MEDICARE, OTHER, SELFPAY ==
--- NOTE | 2021-05-23 | DI.US.S_ITS ---
PROCEDURE: US THYROID INDICATIONS: HYPOTHYROIDISM TECHNIQUE: Real-time scanning was performed of the thyroid gland, with image documentation. COMPARISON: [facility], US, THYROID, 05/15/2012, 13:37. FINDINGS: Right: Prior right thyroidectomy. Left: Thyroid lobe measures 5.6 x 2.3 x 2.0 cm, and is homogenous in echotexture. Isthmus: 7.3 mm thick. Nodule number: 1 Location: Left mid Size: 0.9 x 0.7 x 0.6 cm. Composition: Solid Echogenicity: Hypoechoic Shape: wider than tall. Margins: Smooth Echogenic foci: None Total points: 4 ACR TI-RADS category: TI-RADS 4 IMPRESSION: Subcentimeter TI-RADS 4 left thyroid nodule. Follow up as recommended below. Status post thyroidectomy in the right thyroid lobe. No suspicious soft tissue or adenopathy seen in the right thyroid fossa. ACR TI-RADS definitions and recommendations: TI-RADS 1 (benign): 0 points. FNA not needed. TI-RADS 2 (not suspicious): 2 points. FNA not needed. TI-RADS 3 (mildly suspicious): 3 points. * FNA if 2.5 cm or larger, follow up if 1.5 cm or larger (at 1, 3, and 5 years). TI-RADS 4 (moderately suspicious): 4-6 points. * FNA if 1.5 cm or larger, follow up if 1 cm or larger (at 1, 2, 3, and 5 years). TI-RADS 5 (highly suspicious): 7 points or more. * FNA if 1 cm or larger, follow up if 0.5 cm or larger (every year for 5 years). Dictated by: Néstor Rod[facility]guez [facility] Interpreted: Matt Sanchez MD on 05/23/2021 at 11:53 Transcribed by: AIDEE on 05/23/2021 at 11:55 Approved by: Matt Sanchez M.D. on 05/23/2021 at 16:47
== END ==
PROVIDERS: Family Provider Internal Medicine Cardiovascular Disease; PCP Family Medicine; Referring Provider Family Medicine; Visit Provider Family Medicine
DX: E03.9 Hypothyroidism, unspecified (principal); E04.1 Nontoxic single thyroid nodule
CPT/HCPCS: 76536

== ENCOUNTER 2021-05-23 11:50 | Inpatient (IN) | payer MEDICARE, OTHER, SELFPAY ==
[2021-05-23] VITALS (29 sets, daily range): BP systolic 87–110; BP diastolic 52–70; PULSE 55–100; RESP 13–29; TEMP 36.7; O2SAT 93–99; BMI 28.4
[2021-05-23 12:44] LABS: Add Manual Diff / Slide Review NO; Basophils Absolute Auto 0 /uL (0-100); Basophils Percent Auto 0.9 % (0-2); Eosinophils Absolute Auto 100 /uL (0-450); Eosinophils Percent Auto 2.1 % (2-4); Hematocrit 28.4 % (41-53); Hemoglobin 9.4 g/dL (13.5-17.5); Lymphocytes Absolute Auto 500 /uL (1100-4500); Lymphocytes Percent Auto 11.9 % (25-40); Mean Corpuscular Hemoglobin 32.6 PG (26-34); Mean Corpuscular Volume 98.9 fL (80-100); Monocytes Absolute Auto 300 /uL (0-900); Monocytes Percent Auto 6.8 % (3-14); Neutrophils Absolute Auto 3500 /uL (1500-7000); Neutrophils Percent Auto 78.3 % (50-75); Platelet Count 175 X10^3/uL (150-400); Red Blood Cell Count 2.88 X10^6/uL (4.5-5.9); White Blood Cell Count 4.5 X10^3/uL (4.5-11.0)
--- NOTE | 2021-05-23 12:50 | ED_ITS ---
HPI - Skin/Abscess/Foreign Bdy General Chief complaint: Skin/Abscess/Foreign Body Stated complaint: couple cuts on legs, recurrent infection Time Seen by Provider: 05/23/21 12:24 Source: patient and family Mode of arrival: Wheelchair Limitations: no limitations History of Present Illness HPI narrative: 81-year-old male former smoker with history of AFib on Coumadin, hypertension, hypothyroid and CKD (baseline GFR <20) presents with the chief complaint of bilateral lower extremity poorly healing wounds. He has had chronic venous stasis for quite some time and had been seen and evaluated at an outside facility and treated for cellulitis on Bactrim recently. He is here as his symptoms have not improved. He denies much in the way of dizziness, weakness or lightheadedness. He has had no fever or chills. He denies any drainage. He denies chest pain or shortness of breath. He last urinated this morning and denies any difficulty Related Data Home Medications Medication Instructions Recorded Confirmed cholecalciferol (vitamin D3) 25 1,000 unit PO DAILY #0 05/31/12 05/23/21 mcg (1,000 unit) capsule (Vitamin D3) allopurinol 300 mg tablet 300 mg PO DAILY 05/21/19 05/23/21 levothyroxine 125 mcg tablet 125 mcg PO DAILY 05/21/19 05/23/21 levothyroxine 25 mcg tablet 25 mcg PO DAILY 05/21/19 05/23/21 losartan 25 mg tablet 25 mg PO QPM 05/21/19 05/23/21 tamsulosin 0.4 mg capsule 0.4 mg PO DAILY 05/21/19 05/23/21 warfarin 5 mg tablet 2.5 mg PO DAILY 05/21/19 05/23/21 ferrous sulfate 325 mg (65 mg 325 mg PO DAILY 04/29/20 05/23/21 iron) tablet (Feosol) furosemide 40 mg tablet 80 mg PO DAILY tab 04/29/20 05/23/21 glycopyrrolate 9 mcg-formoterol 2 puff INHALATION BID 04/29/20 05/23/21 4.8 mcg HFA aerosol inhaler (Bevespi Aerosphere) [id number] acid 0.4 1 tab PO DAILY 04/29/20 05/23/21 mg-lycopene 300 mcg-lutein 250 mcg tablet (Centrum Silver) tiotropium bromide 2.5 2 inhalation INHALATION QAM 04/29/20 05/23/21 mcg/actuation mist for inhalation (Spiriva Respimat) Previous Rx's Medication Instructions Recorded omeprazole 20 mg tablet,delayed 20 mg PO BID #60 tab 07/17/18 release Allergies Allergy/AdvReac Type Severity Reaction Status Date / Time No Known Drug Allergies Allergy Verified 05/20/20 07:49 Review of Systems Review of Systems Narrative: GENERAL: Denies chills, fatigue, malaise, fever, sweats. HEENT: Denies sinus pain, ear pain, sore throat, difficulty swallowing, dizziness. RESPIRATORY: Denies dyspnea, cough, wheezing, hemoptysis, sputum. CARDIOVASCULAR: Denies chest pain, palpitations, orthopnea, edema, GASTROINTESTINAL: Denies nausea, vomiting, abdominal pain, diarrhea, constipation, melena. : Denies dysuria, frequency, incontinence, hematuria, urinary retention. MUSCULOSKELETAL: denies weakness, joint pain, or bony pain SKIN: See HPI NEUROLOGIC: Denies weakness, headache, numbness, change in speech, confusion, seizures, incoordination. PSYCHIATRIC: No concerning psychosocial issues. 12 point review of systems is negative except for those stated above Patient History Medical History Asthma Atrial fibrillation Chronic kidney disease (CKD) History of prostate cancer History of radiation therapy Partial blindness Surgical History H/O hernia repair Family History Mother Hypertension Stroke Father Hypertension Social History household members: spouse Smoking Status: Former smoker Smoking Status: Former smoker tobacco type: cigarettes alcohol intake frequency: 0-2 drinks per day Substance Use Type: does not use Exam Narrative Exam Narrative: GENERAL: [81] year old patient appears stated age. Well- developed patient, in mild distress. HEAD: Atraumatic. Normocephalic. EYES: Pupils equal round and reactive. Extraocular motions intact. No scleral icterus. No injection or drainage. ENT: Nose without bleeding, purulent drainage. Throat without erythema, tonsillar hypertrophy or exudate. Airway patent. NECK: Trachea midline. Non tender CARDIOVASCULAR: Regular rate and rhythm without murmurs, gallops, or rubs. RESPIRATORY: Clear to auscultation. Breath sounds equal bilaterally. No wheezes, rales, or rhonchi. GASTROINTESTINAL: Abdomen soft, non-tender, nondistended. EXTREMITIES: 1+ pitting edema bilateral lower extremities with circumferential dark erythema, likely consistent with chronic venous stasis. BACK: Nontender without deformity or crepitance. No flank tenderness. NEURO: AOx3. SKIN: No rash or erythema of visible areas Initial Vital Signs Initial Vital Signs: Vital Signs Temperature 98.1 F 05/23/21 12:04 Pulse Rate 55 L 05/23/21 12:04 Respiratory Rate 16 05/23/21 12:04 Blood Pressure 93/59 L 05/23/21 12:04 Pulse Oximetry 95 05/23/21 12:04 Course Orders Ordered: Acetaminophen (Acetaminophen 325 Mg Tablet) 650 mg PO Q6HR PRN PRN Reason: Fever/Mild Pain (1-3) Last Admin: 05/24/21 05:02 Dose: 650 mg Documented by: ANH Albuterol (Albuterol 2.5 Mg/3 Ml Neb (Adult)) 2.5 mg INH [id number] PRN PRN Reason: Shortness Of Breath Albuterol/Ipratropium (Albuterol/Ipratropium 3 Ml Ampul) 3 ml INH [id number] DANNY Ceftriaxone Sodium 1,000 mg/ (Sodium Chloride) 100 mls @ 200 mls/hr IV Q24H [facility] Stop: 05/26/21 19:44 Last Infusion: 05/23/21 22:00 Dose: 0 mls/hr Documented by: Admin: 05/23/21 19:56 Dose: 200 mls/hr Documented by: AILEEN Ondansetron HCl (Ondansetron 4 Mg/2 Ml Inj) 4 mg IV Q8HR PRN PRN Reason: Nausea And Vomiting Pantoprazole Sodium (Pantoprazole 40 Mg Vial) 40 mg IV BID DANNY Sodium Chloride (Sodium Chloride 0.9% Flush) 10 ml IV BID DANNY Sodium Chloride (Sodium Chloride 0.9% Flush) 10 ml IV PRN PRN PRN Reason: Flush Tamsulosin HCl (Tamsulosin 0.4 Mg Capsule) 0.4 mg PO DAILY DANNY Discontinued Medications Sodium Chloride (Normal Saline 0.9%) 1,000 mls @ 1,000 mls/hr IV BOLUS ONE Stop: 05/23/21 13:09 Last Admin: 05/23/21 12:35 Dose: Not Given Documented by: NICKI Sodium Chloride (Normal Saline 0.9%) 500 mls @ 1,000 mls/hr IV BOLUS ONE Stop: 05/23/21 14:03 Last Infusion: 05/23/21 14:42 Dose: 0 mls/hr Documented by: Admin: 05/23/21 14:02 Dose: 1,000 mls/hr Documented by: CORA Sodium Chloride (Normal Saline 0.9%) 500 mls @ 1,000 mls/hr IV BOLUS ONE Stop: 05/23/21 17:33 Last Infusion: 05/23/21 18:14 Dose: 0 mls/hr Documented by: Admin: 05/23/21 17:12 Dose: 1,000 mls/hr Documented by: CORA Losartan Potassium (Losartan 25 Mg Tablet) 25 mg PO QPM DANNY Pantoprazole Sodium (Pantoprazole 40 Mg Vial) 40 mg IV NOW ONE Stop: 05/24/21 07:03 Phytonadione (Phytonadione (Vit K1) 5 Mg Tablet) 10 mg PO NOW ONE Stop: 05/24/21 07:26 Consultations Consultation #1: Upon receipt of 2nd troponin I placed a call to on-call Cardiology (Lakesha). We discussed the patient's presentation, labs and EKGs. We sure the opinion is this is unlikely to be a primary cardiac release of troponin that that his number should be trended and an echocardiogram should be part of this evaluation. Consultation #2: Discussed with on-call Nephrology at [facility]. She is pleased with the improvement of creatinine in and suggest this is likely secondary to multiple nephrotoxic drugs. No indication for transfer at this poi nt recommends admission. Vital Signs Vital signs: Vital Signs - 8 hr 05/23/21 12:04 05/23/21 12:29 05/23/21 12:30 Temperature 98.1 F Pulse Rate 55 L 93 H 93 H Respiratory Rate 16 21 19 Blood Pressure 93/59 L 94/62 Pulse Oximetry 95 96 96 05/23/21 12:45 05/23/21 13:00 05/23/21 13:15 Temperature Pulse Rate 94 H 90 92 H Respiratory Rate 17 15 13 Blood Pressure 96/56 L Pulse Oximetry 99 97 99 05/23/21 13:30 05/23/21 13:45 05/23/21 14:00 Temperature Pulse Rate 96 H 91 H 91 H Respiratory Rate 20 15 16 Blood Pressure 92/62 91/52 L Pulse Oximetry 97 99 97 05/23/21 14:15 05/23/21 14:19 05/23/21 14:30 Temperature Pulse Rate 91 H 91 H 90 Respiratory Rate 16 29 H 21 Blood Pressure 101/52 L 97/70 Pulse Oximetry 95 93 05/23/21 14:45 05/23/21 15:00 05/23/21 15:15 Temperature Pulse Rate 93 H 95 H 92 H Respiratory Rate 28 H 18 17 Blood Pressure 99/57 L Pulse Oximetry 98 99 05/23/21 15:30 05/23/21 15:45 05/23/21 16:00 Temperature Pulse Rate 93 H 94 H 91 H Respiratory Rate 24 26 H 21 Blood Pressure 92/66 94/52 L Pulse Oximetry 97 97 97 05/23/21 16:15 05/23/21 16:30 05/23/21 16:45 Temperature Pulse Rate 93 H 93 H 93 H Respiratory Rate 23 26 H 25 H Blood Pressure 87/64 L Pulse Oximetry 97 98 98 05/23/21 17:00 05/23/21 17:15 05/23/21 17:30 Temperature Pulse Rate 92 H 89 92 H Respiratory Rate 28 H 26 H 22 Blood Pressure 92/64 98/61 Pulse Oximetry 98 98 98 MDM - Skin/Abscess/Foreign Bdy Lab Data Result diagrams: 05/24/21 04:57 05/24/21 04:57 Labs: Lab Results 05/23/21 05/23/21 05/23/21 Range/Units 12:30 12:30 12:30 WBC 4.5 (4.5-11.0) X10^3/uL RBC 2.88 L (4.5-5.9) X10^6/uL Hgb 9.4 L (13.5-17.5) g/dL Hct 28.4 L (41-53) % MCV 98.9 (80-100) fL MCH 32.6 (26-34) PG MCHC 33.0 (30-36) % RDW 16.0 H (11.6-14.8) % Plt Count 175 (150-400) X10^3/uL Neut % (Auto) 78.3 H (50-75) % Lymph % (Auto) 11.9 L (25-40) % [place] % (Auto) 6.8 (3-14) % Eos % (Auto) 2.1 (2-4) % Baso % (Auto) 0.9 (0-2) % Neut # (Auto) 3500 (4944-0048) /uL Lymph # (Auto) 500 L (4370-6659) /uL [place] # (Auto) 300 (0-900) /uL Eos # (Auto) 100 (0-450) /uL Baso # (Auto) 0 (0-100) /uL PT 96.9 H (10.1-12.7) SECONDS INR 8.1 H* (0.9-1.3) APTT 57 H (26.4-36.2) SECONDS Sodium 140 (137-145) mmol/L Potassium 4.3 (3.4-5.1) mmol/L Chloride 111 H (98-107) mmol/L Carbon Dioxide 18 L (22-32) mmol/L BUN 64 H (9-20) mg/dL Creatinine 5.87 H (0.66-1.25) mg/dL Estimated GFR 9.3 L (>60) mL/min BUN/Creatinine Ratio 10.9 (6-22) Glucose 81 (80-110) mg/dL Lactate (0.7-2.1) mmol/L Calcium 9.3 (8.4-10.2) mg/dL Total Bilirubin 0.6 (0.2-1.3) mg/dL AST 34 (17-59) IU/L ALT 13 (<50) IU/L Alkaline Phosphatase 317 H (38-126) U/L Total Creatine Kinase (55-170) U/L CK-MB (CK-2) (<2.37) ng/mL CK-MB (CK-2) Rel Index (1.5-5.0) % Troponin I (0.01-0.034) ng/mL NT-Pro-B Natriuret Pep (<450) pg/mL Total Protein 6.5 (6.3-8.2) g/dL Albumin 3.4 L (3.5-5.0) g/dL Globulin 3.1 (1.7-4.1) g/dL Albumin/Globulin Ratio 1.1 (1.0-2.8) Lipase 135 (23-300) U/L Procalcitonin 0.27 (<0.5) ng/mL Urine Color Urine Appearance Urine pH (4.5-8.0) Ur Specific [place] (1.000-1.035) Urine Protein (Negative) Urine Glucose (UA) (Negative) g/dL Urine Ketones (NEGATIVE) Urine Occult Blood (Negative) Urine Nitrate (Negative) Urine Bilirubin (NEGATIVE) Urine Urobilinogen (0.2) E.U./dL Ur Leukocyte Esterase (NEGATIVE) Urine RBC (0-5/HPF) Urine WBC (0-5/HPF) Ur Squamous Epith Cells (0-5/HPF) Urine Bacteria (None) Hyaline Casts (None) Ur Culture Indicated? Ur Random Sodium (30-90) mmol/L SARS-CoV-2 (PCR) (Negative) 05/23/21 05/23/21 05/23/21 Range/Units 12:30 12:40 13:46 WBC (4.5-11.0) X10^3/uL RBC (4.5-5.9) X10^6/uL Hgb (13.5-17.5) g/dL Hct (41-53) % MCV (80-100) fL MCH (26-34) PG MCHC (30-36) % RDW (11.6-14.8) % Plt Count (150-400) X10^3/uL Neut % (Auto) (50-75) % Lymph % (Auto) (25-40) % [place] % (Auto) (3-14) % Eos % (Auto) (2-4) % Baso % (Auto) (0-2) % Neut # (Auto) (6786-2770) /uL Lymph # (Auto) (3950-4565) /uL [place] # (Auto) (0-900) /uL Eos # (Auto) (0-450) /uL Baso # (Auto) (0-100) /uL PT (10.1-12.7) SECONDS INR (0.9-1.3) APTT (26.4-36.2) SECONDS Sodium (137-145) mmol/L Potassium (3.4-5.1) mmol/L Chloride (98-107) mmol/L Carbon Dioxide (22-32) mmol/L BUN (9-20) mg/dL Creatinine (0.66-1.25) mg/dL Estimated GFR (>60) mL/min BUN/Creatinine Ratio (6-22) Glucose (80-110) mg/dL Lactate 1.5 (0.7-2.1) mmol/L Calcium (8.4-10.2) mg/dL Total Bilirubin (0.2-1.3) mg/dL AST (17-59) IU/L ALT (<50) IU/L Alkaline Phosphatase (38-126) U/L Total Creatine Kinase 176 H (55-170) U/L CK-MB (CK-2) 9.42 H (<2.37) ng/mL CK-MB (CK-2) Rel Index 5.4 H (1.5-5.0) % Troponin I 0.231 H* (0.01-0.034) ng/mL NT-Pro-B Natriuret Pep 29430 H (<450) pg/mL Total Protein (6.3-8.2) g/dL Albumin (3.5-5.0) g/dL Globulin (1.7-4.1) g/dL Albumin/Globulin Ratio (1.0-2.8) Lipase (23-300) U/L Procalcitonin (<0.5) ng/mL Urine Color Urine Appearance Urine pH (4.5-8.0) Ur Specific [place] (1.000-1.035) Urine Protein (Negative) Urine Glucose (UA) (Negative) g/dL Urine Ketones (NEGATIVE) Urine Occult Blood (Negative) Urine Nitrate (Negative) Urine Bilirubin (NEGATIVE) Urine Urobilinogen (0.2) E.U./dL Ur Leukocyte Esterase (NEGATIVE) Urine RBC (0-5/HPF) Urine WBC (0-5/HPF) Ur Squamous Epith Cells (0-5/HPF) Urine Bacteria (None) Hyaline Casts (None) Ur Culture Indicated? Ur Random Sodium (30-90) mmol/L SARS-CoV-2 (PCR) Negative (Negative) 05/23/21 05/23/21 05/23/21 Range/Units 14:40 14:40 17:24 WBC (4.5-11.0) X10^3/uL RBC (4.5-5.9) X10^6/uL Hgb (13.5-17.5) g/dL Hct (41-53) % MCV (80-100) fL MCH (26-34) PG MCHC (30-36) % RDW (11.6-14.8) % Plt Count (150-400) X10^3/uL Neut % (Auto) (50-75) % Lymph % (Auto) (25-40) % [place] % (Auto) (3-14) % Eos % (Auto) (2-4) % Baso % (Auto) (0-2) % Neut # (Auto) (0043-9480) /uL Lymph # (Auto) (7439-7945) /uL [place] # (Auto) (0-900) /uL Eos # (Auto) (0-450) /uL Baso # (Auto) (0-100) /uL PT (10.1-12.7) SECONDS INR (0.9-1.3) APTT (26.4-36.2) SECONDS Sodium (137-145) mmol/L Potassium (3.4-5.1) mmol/L Chloride (98-107) mmol/L Carbon Dioxide (22-32) mmol/L BUN (9-20) mg/dL Creatinine 5.29 H (0.66-1.25) mg/dL Estimated GFR 10.5 L (>60) mL/min BUN/Creatinine Ratio (6-22) Glucose (80-110) mg/dL Lactate (0.7-2.1) mmol/L Calcium (8.4-10.2) mg/dL Total Bilirubin (0.2-1.3) mg/dL AST (17-59) IU/L ALT (<50) IU/L Alkaline Phosphatase (38-126) U/L Total Creatine Kinase (55-170) U/L CK-MB (CK-2) (<2.37) ng/mL CK-MB (CK-2) Rel Index (1.5-5.0) % Troponin I 0.214 H* (0.01-0.034) ng/mL NT-Pro-B Natriuret Pep (<450) pg/mL Total Protein (6.3-8.2) g/dL Albumin (3.5-5.0) g/dL Globulin (1.7-4.1) g/dL Albumin/Globulin Ratio (1.0-2.8) Lipase (23-300) U/L Procalcitonin (<0.5) ng/mL Urine Color Urine Appearance Urine pH (4.5-8.0) Ur Specific [place] (1.000-1.035) Urine Protein (Negative) Urine Glucose (UA) (Negative) g/dL Urine Ketones (NEGATIVE) Urine Occult Blood (Negative) Urine Nitrate (Negative) Urine Bilirubin (NEGATIVE) Urine Urobilinogen (0.2) E.U./dL Ur Leukocyte Esterase (NEGATIVE) Urine RBC (0-5/HPF) Urine WBC (0-5/HPF) Ur Squamous Epith Cells (0-5/HPF) Urine Bacteria (None) Hyaline Casts (None) Ur Culture Indicated? Ur Random Sodium 66 (30-90) mmol/L SARS-CoV-2 (PCR) (Negative) 05/23/21 Range/Units 17:24 WBC (4.5-11.0) X10^3/uL RBC (4.5-5.9) X10^6/uL Hgb (13.5-17.5) g/dL Hct (41-53) % MCV (80-100) fL MCH (26-34) PG MCHC (30-36) % RDW (11.6-14.8) % Plt Count (150-400) X10^3/uL Neut % (Auto) (50-75) % Lymph % (Auto) (25-40) % [place] % (Auto) (3-14) % Eos % (Auto) (2-4) % Baso % (Auto) (0-2) % Neut # (Auto) (3627-7850) /uL Lymph # (Auto) (6087-7681) /uL [place] # (Auto) (0-900) /uL Eos # (Auto) (0-450) /uL Baso # (Auto) (0-100) /uL PT (10.1-12.7) SECONDS INR (0.9-1.3) APTT (26.4-36.2) SECONDS Sodium (137-145) mmol/L Potassium (3.4-5.1) mmol/L Chloride (98-107) mmol/L Carbon Dioxide (22-32) mmol/L BUN (9-20) mg/dL Creatinine (0.66-1.25) mg/dL Estimated GFR (>60) mL/min BUN/Creatinine Ratio (6-22) Glucose (80-110) mg/dL Lactate (0.7-2.1) mmol/L Calcium (8.4-10.2) mg/dL Total Bilirubin (0.2-1.3) mg/dL AST (17-59) IU/L ALT (<50) IU/L Alkaline Phosphatase (38-126) U/L Total Creatine Kinase (55-170) U/L CK-MB (CK-2) (<2.37) ng/mL CK-MB (CK-2) Rel Index (1.5-5.0) % Troponin I (0.01-0.034) ng/mL NT-Pro-B Natriuret Pep (<450) pg/mL Total Protein (6.3-8.2) g/dL Albumin (3.5-5.0) g/dL Globulin (1.7-4.1) g/dL Albumin/Globulin Ratio (1.0-2.8) Lipase (23-300) U/L Procalcitonin (<0.5) ng/mL Urine Color Yellow Urine Appearance Clear Urine pH 5.0 (4.5-8.0) Ur Specific [place] 1.010 (1.000-1.035) Urine Protein Negative (Negative) Urine Glucose (UA) Negative (Negative) g/dL Urine Ketones Negative (NEGATIVE) Urine Occult Blood Negative (Negative) Urine Nitrate Negative (Negative) Urine Bilirubin Negative (NEGATIVE) Urine Urobilinogen 0.2 (0.2) E.U./dL Ur Leukocyte Esterase Negative (NEGATIVE) Urine RBC None seen (0-5/HPF) Urine WBC None seen (0-5/HPF) Ur Squamous Epith Cells 0-1 /hpf (0-5/HPF) Urine Bacteria Occasional (0-1) (None) Hyaline Casts 5-10/lpf (None) Ur Culture Indicated? Cult not indicated Ur Random Sodium (30-90) mmol/L SARS-CoV-2 (PCR) (Negative) MDM Narrative Medical decision making narrative: Multiple EKG show only AFib with right b undle-branch block. Minimal change after fluids, renal ultrasound demonstrates no obstructive uropathy. Critical Care Time Critical Care Time Critical Care Time: Yes Total Critical Care Time: 30 Attestation: The high probability of a clinically significant, sudden or life threatening deterioration of the [CV] system(s) required my full and direct attention, intervention and personal management. The aggregate critical care time was [30] minutes. This time is in addition to time spent performing reported procedures but includes the following: [x] Data Review and interpretation [x] Patient assessment and monitoring of vital signs [x] Documentation [x] Medication orders and management Discharge Plan Departure Patient Disposition: Admitted As Inpatient Clinical Impression: Acute kidney injury, Elevated troponin Admit Date/Time: 05/23/21 17:36 Admit Provider: Luther Marino
[2021-05-23 12:53] LABS: PTT Partial Thromboplastin Tim 57 SECONDS (26.4-36.2)
--- NOTE | 2021-05-23 12:55 | DI.RAD.S_ITS ---
PROCEDURE: XR CHEST 1V INDICATIONS: CHF/SOB TECHNIQUE: One view of the chest was acquired. COMPARISON: [facility], CR, XR CHEST 2V, 11/06/2019, 11:44. FINDINGS: Surgical changes and devices: None. Lungs and pleura: No pneumothorax. Diffuse interstitial prominence with loss of vascular distinctness and mild pulmonary vascular congestion. There is a small right pleural effusion. Patchy bibasilar opacities likely representing atelectasis. No pneumothorax. Mediastinum: Mediastinal contours appear stable. Heart size is mildly enlarged. Bones and chest wall: No suspicious bony lesions. Overlying soft tissues appear unremarkable. IMPRESSION: Mild cardiomegaly with findings compatible with CHF/pulmonary edema. Concurrent infectious/inflammatory process not excluded if clinically appropriate. Recommend follow up chest radiograph 4-6 weeks after treatment to document resolution of findings and/or return to baseline examination. Dictated by: Matt Sanchez M.D. on 05/23/2021 at 13:25 Approved by: Matt Sanchez M.D. on 05/23/2021 at 13:27
[2021-05-23 12:57] LABS: Lactate (Lactic Acid) 1.5 mmol/L (0.7-2.1); Prothrombin Time 96.9 SECONDS (10.1-12.7)
[2021-05-23 12:58] LABS: Alanine Aminotransferase 13 IU/L (<50); Albumin 3.4 g/dL (3.5-5.0); Albumin Globulin Ratio 1.1 (1.0-2.8); Alkaline Phosphatase 317 U/L (38-126); Aspartate Aminotransferase 34 IU/L (17-59); BUN Creatinine Ratio 10.9 (6-22); Bilirubin Total 0.6 mg/dL (0.2-1.3); Blood Urea Nitrogen 64 mg/dL (9-20); Calcium 9.3 mg/dL (8.4-10.2); Carbon Dioxide 18 mmol/L (22-32); Chloride 111 mmol/L (98-107); Estimated Glomerular Filt Rate 9.3 mL/min (>60); Globulin 3.1 g/dL (1.7-4.1); Glucose 81 mg/dL (80-110); HEMOLYSIS < 15 (0-50); Lipase 135 U/L (23-300); Potassium 4.3 mmol/L (3.4-5.1); Sodium 140 mmol/L (137-145); Total Protein 6.5 g/dL (6.3-8.2)
[2021-05-23 13:13] LABS: Procalcitonin 0.27 ng/mL (<0.5)
[2021-05-23 13:18] LABS: INR 8.1 (0.9-1.3)
--- NOTE | 2021-05-23 13:34 | DI.US.S_ITS ---
PROCEDURE: US RENAL COMPLETE INDICATIONS: ACUTE RENAL FAILURE TECHNIQUE: Real-time scanning was performed of the kidneys and bladder, with image documentation. COMPARISON: None. FINDINGS: Kidneys: Kidneys are normal in size. Right kidney measures 9.6 cm long; left kidney measures 13.8 cm long. Right renal cortical thickness is 1.1 cm; left renal cortical thickness is 1.2 cm. Increased bilateral renal parenchymal echotexture is seen. Multiple simple appearing cysts are noted in bilateral kidneys. Largest cyst in upper pole right kidney measures 5.6 x 5.5 x 4.6 cm in size. Largest cyst in midpole right kidney measures 3.6 x 4.1 x 4.1 cm in size. Largest cyst in lower pole right kidney measures 4.5 x 4.7 x 4.9 cm in size. There is also a exophytic simple cyst in midpole of left kidney measures 8.7 x 9.3 x 7.8 cm in size. A septated cyst with peripheral calcification is seen in upper pole of left kidney measures 3.9 x 3.5 x 3.7 cm in size. No hydronephrosis or nephrolithiasis. No suspicious solid mass lesions. Bladder: Pre-void bladder volume is 75 mL. Pre-void images demonstrate no intraluminal masses or stones. On pre-void images, no ureteral jets are noted with color Doppler interrogation. (Of note, ureteral jets may not be detectable in up to 25% of cases due to insufficient differences in specific gravity between ureteral and bladder urine). Miscellaneous: Small amount of ascites fluid is seen in all 4 quadrants of abdomen. Incidentally noted of thickened gallbladder wall measures up to 4.1 mm in thickness and contains sludge material. No definite sonographic Atkinson sign. IMPRESSION: 1. Increased bilateral renal parenchymal echotexture as described above suggestive of medical renal disease. Bilateral renal cysts as above. No gross solid appearing renal lesion or hydronephrosis. 2. No gross abnormality is seen in partially distended urinary bladder. 3. Small amount of ascites fluid in abdomen. Sludge material seen in gallbladder lumen with mild gallbladder wall thickening which could represent chronic cholecystitis. Dictated by: Lambert Ragsdale M.D. on 05/23/2021 at 16:10 Approved by: Lambert Ragsdale M.D. on 05/23/2021 at 16:14
[2021-05-23 13:37] LABS: Creatine Kinase 176 U/L (55-170)
[2021-05-23 13:53] LABS: CKMB % Relative Index 5.4 % (1.5-5.0); Creatine Kinase MB 9.42 ng/mL (<2.37)
[2021-05-23] MEDS: SODIUM CHLORIDE 0.9% 500 ML 1000 ML IV ×2 (14:02→17:12)
[2021-05-23 14:03] LABS: NT-proBNP (BNP-Adult 18+) 56200 pg/mL (<450)
[2021-05-23 14:31] LABS: Troponin I 0.231 ng/mL (0.01-0.034)
[2021-05-23 14:57] LABS: Estimated Glomerular Filt Rate 10.5 mL/min (>60)
[2021-05-23 15:03] LABS: COVID19 - ADMIT (NP swab/PCR) Negative (Negative)
[2021-05-23 15:32] LABS: Troponin I 0.214 ng/mL (0.01-0.034)
[2021-05-23 17:31] LABS: RBC Urine None Seen (0-5/HPF); WBC Urine None Seen (0-5/HPF)
[2021-05-23 17:34] LABS: Appearance Urine UA CLEAR; Bilirubin Urine UA NEGATIVE (NEGATIVE); Color Urine UA YELLOW; Glucose Urine UA NEGATIVE (Negative); Ketones Urine UA NEGATIVE (NEGATIVE); Leukocyte Esterase Urine UA NEGATIVE (NEGATIVE); Nitrite Urine UA NEGATIVE (Negative); Occult Blood Urine UA NEGATIVE (Negative); Protein Urine UA NEGATIVE (Negative); Urobilinogen Urine UA 0.2 E.U./dL (0.2)
[2021-05-23 17:41] LABS: Sodium Urine Random 66 mmol/L (30-90)
[2021-05-23 17:43] LABS: Bacteria Urine Occasional (0-1); Culture Indicated Urine Cult Not Indicated; Hyaline Casts Urine 5-10/LPF; Squamous Epithelial Cell Urine 0-1 /HPF (0-5/HPF)
--- NOTE | 2021-05-23 18:45 | PM.HP.1 ---
History of Present Illness History of Present Illness Date Patient Seen: 05/23/21 Time Patient Seen: 19:12 Chief complaint: couple cuts on legs, recurrent infection Narrative: Alex Coronado is an 81-year-old male with a past medical history of atrial fibrillation, COPD, heart failure with unknown ejection fraction, CKD stage 4 and recent poorly healing lower extremity wounds who presented to the emergency room for concern for a wound infection. Patient had been prescribed Bactrim by his primary care office 10 days ago for a bilateral lower extremity cellulitis, his was concerned about some poorly healing wounds, though she admits they look better than they did before. Patient has chronic dyspnea on exertion, but for the past week or so he has been slightly more short of breath. His lower extremity edema worsened a couple weeks ago prior to the onset of his cellulitis and he also has been having some early satiety as well. He denies any overt fever, chills, nausea, or vomiting. He does state that his cellulitis has been improving. His edema also looks better than it did before. In the emergency room, the patient was in atrial fibrillation with the rate generally in the 90s but occasionally up to 100. The remainder of his vital signs are unremarkable. Initial laboratory evaluation showed a WBC of 4.5, hemoglobin of 9.4, platelets of 175. Coagulation studies showed an INR of 8.1. Chemistry panel revealed a creatinine of 5.87 which improved to 5.29 on repeat (his baseline is around 3.4 according to outpatient records as best as I can tell), CO2 of 18, but normal potassium and sodium levels. Alk-phos was slightly elevated at 317, CK was slightly elevated at 176. Troponin was initially 0.231 which improved to 0.214 on repeat. There is no evidence of acute ischemia on [place]KG[place] [address]. Urinalysis showed a normal specific gravity and no evidence of infection. There is no evidence of obstruction on kidney imaging. COVID-19 testing was negative. Patient was admitted for JIMBO on CKD. Patient History Medical History Asthma Atrial fibrillation Chronic kidney disease (CKD) History of prostate cancer History of radiation therapy Partial blindness Surgical History H/O hernia repair Family & Social History Family History Mother Hypertension Stroke Father Hypertension Social History: household members spouse Safety & Behavioral: Feels Safe in Current Yes Environment Been Physically Hurt or No Threatened By a Person Tobacco & Substance use: Smoking Status Former smoker alcohol intake frequency 0-2 drinks per day Substance Use Type does not use Meds Home Medications and Allergies Home Medications Medication Instructions Recorded Confirmed Type cholecalciferol (vitamin D3) 25 1,000 unit PO DAILY #0 05/31/12 05/20/20 History mcg (1,000 unit) capsule (Vitamin D3) omeprazole 20 mg tablet,delayed 20 mg PO BID #60 tab 07/17/18 05/20/20 Rx release allopurinol 300 mg tablet 300 mg PO DAILY 05/21/19 05/20/20 History levothyroxine 125 mcg tablet 125 mcg PO DAILY 05/21/19 05/20/20 History levothyroxine 25 mcg tablet 25 mcg PO DAILY 05/21/19 05/20/20 History losartan 25 mg tablet 25 mg PO QPM 05/21/19 05/20/20 History tamsulosin 0.4 mg capsule 0.4 mg PO DAILY 05/21/19 05/20/20 History warfarin 5 mg tablet 2.5 mg PO DAILY 05/21/19 05/20/20 History ferrous sulfate 325 mg (65 mg 325 mg PO DAILY 04/29/20 05/20/20 History iron) tablet (Feosol) furosemide 40 mg tablet 80 mg PO DAILY tab 04/29/20 05/20/20 History glycopyrrolate 9 mcg-formoterol 2 puff INHALATION BID 04/29/20 05/20/20 History 4.8 mcg HFA aerosol inhaler (Bevespi Aerosphere) xifvwieh-qji-hnksp acid 0.4 1 tab PO DAILY 04/29/20 05/20/20 History mg-lycopene 300 mcg-lutein 250 mcg tablet (Centrum Silver) tiotropium bromide 2.5 2 inhalation INHALATION QAM 04/29/20 05/20/20 History mcg/actuation mist for inhalation (Spiriva Respimat) Allergies Allergy/AdvReac Type Severity Reaction Status Date / Time No Known Drug Allergies Allergy Verified 05/20/20 07:49 Review of Systems Review of Systems Narrative: All other systems reviewed with the patient and are negative unless otherwise stated. Exam Vital Signs (past 8 hours): - 05/23/21 12:04 05/23/21 12:29 05/23/21 12:30 Temperature 98.1 F Pulse Rate 55 L 93 H 93 H Respiratory Rate 16 21 19 Blood Pressure 93/59 L 94/62 Pulse Oximetry 95 96 96 05/23/21 12:45 05/23/21 13:00 05/23/21 13:15 Temperature Pulse Rate 94 H 90 92 H Respiratory Rate 17 15 13 Blood Pressure 96/56 L Pulse Oximetry 99 97 99 05/23/21 13:30 05/23/21 13:45 05/23/21 14:00 Temperature Pulse Rate 96 H 91 H 91 H Respiratory Rate 20 15 16 Blood Pressure 92/62 91/52 L Pulse Oximetry 97 99 97 05/23/21 14:15 05/23/21 14:19 05/23/21 14:30 Temperature Pulse Rate 91 H 91 H 90 Respiratory Rate 16 29 H 21 Blood Pressure 101/52 L 97/70 Pulse Oximetry 95 93 05/23/21 14:45 05/23/21 15:00 05/23/21 15:15 Temperature Pulse Rate 93 H 95 H 92 H Respiratory Rate 28 H 18 17 Blood Pressure 99/57 L Pulse Oximetry 98 99 05/23/21 15:30 05/23/21 15:45 05/23/21 16:00 Temperature Pulse Rate 93 H 94 H 91 H Respiratory Rate 24 26 H 21 Blood Pressure 92/66 94/52 L Pulse Oximetry 97 97 97 05/23/21 16:15 05/23/21 16:30 05/23/21 16:45 Temperature Pulse Rate 93 H 93 H 93 H Respiratory Rate 23 26 H 25 H Blood Pressure 87/64 L Pulse Oximetry 97 98 98 05/23/21 17:00 05/23/21 17:15 05/23/21 17:30 Temperature Pulse Rate 92 H 89 92 H Respiratory Rate 28 H 26 H 22 Blood Pressure 92/64 98/61 Pulse Oximetry 98 98 98 05/23/21 17:45 05/23/21 18:00 05/23/21 18:15 Temperature Pulse Rate 92 H 92 H 97 H Respiratory Rate 29 H 28 H 28 H Blood Pressure 100/67 Pulse Oximetry 98 98 96 Oxygen Delivery Method Room Air Narrative Exam Narrative: GENERAL APPEARANCE: Well developed, well nourished, in no acute distress. SKIN: Inspection of the skin reveals bilateral circumferential erythema in his lower extremities, which the patient states is improving. This area is mildly tender. It does not feel particularly warm. There are 2 small wounds, 1 on the posterior aspect of his right calf, and the other on the posterior aspect of his left calf. The right calf lesion is approximately 2 x 1 cm with a black eschar. The left lower extremity lesion is approximately 1.5 x 1 cm with granulation tissue, no induration or purulence noted. HEENT: Normocephalic atraumatic, extraocular muscles are intact, oropharynx is clear and mucous membranes are moist, neck is supple without adenopathy NECK: Supple and symmetric. There was no thyroid enlargement, and no tenderness, or masses were felt. CHEST: Normal AP diameter and normal contour without any kyphoscoliosis. LUNGS: bibasilar crackles, upper airway inspiratory wheezing. CARDIOVASCULAR: Irregularly irregular rhythm with a normal rate without any murmurs, gallops, rubs. Peripheral pulses were 2+ and symmetric. ABDOMEN: Soft, nontender, nondistended. MUSCULOSKELETAL: There was no tenderness or effusions noted. Muscle strength and tone were normal. EXTREMITIES: No cyanosis, clubbing. There was 1+ pitting edema bilaterally, edema did extend to the knees bilaterally NEUROLOGIC: Alert and oriented x 3. Normal affect. Strength is +5/5 in the Upper Extremities and Lower Extremities Bilaterally. Sensation to touch was normal. Objective ECG Impression: Atrial fibrillation with normal rate Imaging US - abdomen: Radiologist's impression: PROCEDURE: US RENAL COMPLETE INDICATIONS: ACUTE RENAL FAILURE TECHNIQUE: Real-time scanning was performed of the kidneys and bladder, with image documentation. COMPARISON: None. FINDINGS: Kidneys: Kidneys are normal in size. Right kidney measures 9.6 cm long; left kidney measures 13.8 cm long. Right renal cortical thickness is 1.1 cm; left renal cortical thickness is 1.2 cm. Increased bilateral renal parenchymal echotexture is seen. Multiple simple appearing cysts are noted in bilateral kidneys. Largest cyst in upper pole right kidney measures 5.6 x 5.5 x 4.6 cm in size. Largest cyst in midpole right kidney measures 3.6 x 4.1 x 4.1 cm in size. Largest cyst in lower pole right kidney measures 4.5 x 4.7 x 4.9 cm in size. There is also a exophytic simple cyst in midpole of left kidney measures 8.7 x 9.3 x 7.8 cm in size. A septated cyst with peripheral calcification is seen in upper pole of left kidney measures 3.9 x 3.5 x 3.7 cm in size. No hydronephrosis or nephrolithiasis. No suspicious solid mass lesions. Bladder: Pre-void bladder volume is 75 mL. Pre-void images demonstrate no intraluminal masses or stones. On pre-void images, no ureteral jets are noted with color Doppler interrogation. (Of note, ureteral jets may not be detectable in up to 25% of cases due to insufficient differences in specific gravity between ureteral and bladder urine). Miscellaneous: Small amount of ascites fluid is seen in all 4 quadrants of abdomen. Incidentally noted of thickened gallbladder wall measures up to 4.1 mm in thickness and contains sludge material. No definite sonographic Atkinson sign. IMPRESSION: 1. Increased bilateral renal parenchymal echotexture as described above suggestive of medical renal disease. Bilateral renal cysts as above. No gross solid appearing renal lesion or hydronephrosis. 2. No gross abnormality is seen in partially distended urinary bladder. 3. Small amount of ascites fluid in abdomen. Sludge material seen in gallbladder lumen with mild gallbladder wall thickening which could represent chronic cholecystitis. Labs Result Diagrams: 05/23/21 12:30 05/23/21 14:40 Labs: Laboratory Results - last 24 hr 05/23/21 05/23/21 05/23/21 12:30 12:30 12:30 WBC 4.5 RBC 2.88 L Hgb 9.4 L Hct 28.4 L MCV 98.9 MCH 32.6 MCHC 33.0 RDW 16.0 H Plt Count 175 Neut % (Auto) 78.3 H Lymph % (Auto) 11.9 L Delta % (Auto) 6.8 Eos % (Auto) 2.1 Baso % (Auto) 0.9 Neut # (Auto) 3500 Lymph # (Auto) 500 L Delta # (Auto) 300 Eos # (Auto) 100 Baso # (Auto) 0 PT 96.9 H INR 8.1 H* APTT 57 H Sodium 140 Potassium 4.3 Chloride 111 H Carbon Dioxide 18 L BUN 64 H Creatinine 5.87 H Estimated GFR 9.3 L BUN/Creatinine Ratio 10.9 Glucose 81 Lactate Calcium 9.3 Total Bilirubin 0.6 AST 34 ALT 13 Alkaline Phosphatase 317 H Total Creatine Kinase CK-MB (CK-2) CK-MB (CK-2) Rel Index Troponin I NT-Pro-B Natriuret Pep Total Protein 6.5 Albumin 3.4 L Globulin 3.1 Albumin/Globulin Ratio 1.1 Lipase 135 Procalcitonin 0.27 Urine Color Urine Appearance Urine pH Ur Specific [place] Urine Protein Urine Glucose (UA) Urine Ketones Urine Occult Blood Urine Nitrate Urine Bilirubin Urine Urobilinogen Ur Leukocyte Esterase Urine RBC Urine WBC Ur Squamous Epith Cells Urine Bacteria Hyaline Casts Ur Culture Indicated? Ur Random Sodium SARS-CoV-2 (PCR) 05/23/21 05/23/21 05/23/21 12:30 12:40 13:46 WBC RBC Hgb Hct MCV MCH MCHC RDW Plt Count Neut % (Auto) Lymph % (Auto) Delta % (Auto) Eos % (Auto) Baso % (Auto) Neut # (Auto) Lymph # (Auto) Delta # (Auto) Eos # (Auto) Baso # (Auto) PT INR APTT Sodium Potassium Chloride Carbon Dioxide BUN Creatinine Estimated GFR BUN/Creatinine Ratio Glucose Lactate 1.5 Calcium Total Bilirubin AST ALT Alkaline Phosphatase Total Creatine Kinase 176 H CK-MB (CK-2) 9.42 H CK-MB (CK-2) Rel Index 5.4 H Troponin I 0.231 H* NT-Pro-B Natriuret Pep 33734 H Total Protein Albumin Globulin Albumin/Globulin Ratio Lipase Procalcitonin Urine Color Urine Appearance Urine pH Ur Specific [place] Urine Protein Urine Glucose (UA) Urine Ketones Urine Occult Blood Urine Nitrate Urine Bilirubin Urine Urobilinogen Ur Leukocyte Esterase Urine RBC Urine WBC Ur Squamous Epith Cells Urine Bacteria Hyaline Casts Ur Culture Indicated? Ur Random Sodium SARS-CoV-2 (PCR) Negative 05/23/21 05/23/21 05/23/21 14:40 14:40 17:24 WBC RBC Hgb Hct MCV MCH MCHC RDW Plt Count Neut % (Auto) Lymph % (Auto) Delta % (Auto) Eos % (Auto) Baso % (Auto) Neut # (Auto) Lymph # (Auto) Delta # (Auto) Eos # (Auto) Baso # (Auto) PT INR APTT Sodium Potassium Chloride Carbon Dioxide BUN Creatinine 5.29 H Estimated GFR 10.5 L BUN/Creatinine Ratio Glucose Lactate Calcium Total Bilirubin AST ALT Alkaline Phosphatase Total Creatine Kinase CK-MB (CK-2) CK-MB (CK-2) Rel Index Troponin I 0.214 H* NT-Pro-B Natriuret Pep Total Protein Albumin Globulin Albumin/Globulin Ratio Lipase Procalcitonin Urine Color Urine Appearance Urine pH Ur Specific [place] Urine Protein Urine Glucose (UA) Urine Ketones Urine Occult Blood Urine Nitrate Urine Bilirubin Urine Urobilinogen Ur Leukocyte Esterase Urine RBC Urine WBC Ur Squamous Epith Cells Urine Bacteria Hyaline Casts Ur Culture Indicated? Ur Random Sodium 66 SARS-CoV-2 (PCR) 05/23/21 17:24 WBC RBC Hgb Hct MCV MCH MCHC RDW Plt Count Neut % (Auto) Lymph % (Auto) Delta % (Auto) Eos % (Auto) Baso % (Auto) Neut # (Auto) Lymph # (Auto) Delta # (Auto) Eos # (Auto) Baso # (Auto) PT INR APTT Sodium Potassium Chloride Carbon Dioxide BUN Creatinine Estimated GFR BUN/Creatinine Ratio Glucose Lactate Calcium Total Bilirubin AST ALT Alkaline Phosphatase Total Creatine Kinase CK-MB (CK-2) CK-MB (CK-2) Rel Index Troponin I NT-Pro-B Natriuret Pep Total Protein Albumin Globulin Albumin/Globulin Ratio Lipase Procalcitonin Urine Color Yellow Urine Appearance Clear Urine pH 5.0 Ur Specific [place] 1.010 Urine Protein Negative Urine Glucose (UA) Negative Urine Ketones Negative Urine Occult Blood Negative Urine Nitrate Negative Urine Bilirubin Negative Urine Urobilinogen 0.2 Ur Leukocyte Esterase Negative Urine RBC None seen Urine WBC None seen Ur Squamous Epith Cells 0-1 /hpf Urine Bacteria Occasional (0-1) Hyaline Casts 5-10/lpf Ur Culture Indicated? Cult not indicated Ur Random Sodium SARS-CoV-2 (PCR) Assessment & Plan Assessment & Plan narrative: Alex Coronado is an 81-year-old male with a past medical history of atrial fibrillation, COPD, heart failure with unknown ejection fraction, CKD stage 4 and recent poorly healing lower extremity wounds who presented to the emergency room for concern for a wound infection. Admitted with Jimbo 1. JIMBO on CKD stage IV - likely secondary to bactrim use as an outpatient, probable hypotension in setting of lasix therapy for chronic heart failure. renal ultrasound without obstruction. - nguyen placed in the ER, can remove tomorrow if adequate urine output. - continue to monitor, avoid nephrotoxic medications 2. Supratherapeutic INR - hold coumadin. INR 8.1 likely secondary to bactrim. No evidence of active bleeding. 3. chronic atrial fibrillation - continue home medications, except for warfarin. 4. Probable acute on chronic heart failure, unknown EF. - proBNP >89249 on admission. Also given multiple L of fluid. He does not appear too volume overloaded at the moment and given JIMBO and soft pressures will avoid diuresis for now. - will try and obtain outpatient TTE which is reported to have been 6 months ago, hold off on repeating now. - if pressures improve consider adding back lasix therapy tomorrow. 5. Chronic anemia - likely secondary to CKD, continue to monitor. 6. Elevated troponin, improved - likely secondary to JIMBO, downtrended in the ER. No chest pain, no ischemic findings on EKG. 7. Bilateral cellulitis, improving. - looks mild at this time, will treat with PO cefdinir for now after recent bactrim course. Code: Full as discussed with the patient, surrogate decision maker is the patient's , Raina DVT: Patient is supratherapeutic in his INR, will resume Coumadin if INR improves prior to discharge Dispo: Patient is min and her observation status as his stay is not expected to exceed 2 midnights Quality MIPS - Admit I confirm the patient?s Advance Care Plan is present, Code status is documented, Surrogate decision maker is in patient?s record [If Yes, STOP here]: Yes
[2021-05-23] MEDS: cefTRIAXone 1,000 MG in SODIUM CHLORIDE 0.9% 100 ML 200 ML IV (19:56)
--- NOTE | 2021-05-23 21:42 | PC.ADMIT ---
[email or web address] Pt arrived from ED @ 1845. Lungs clear, SpO2 96% RA Pt denies any discomfort at this time. Tele showing A-fib/BBB per ICU staff. Bilateral venous stasis to lower extremities. Healing wounds (2) on the posterior side of RLE Healing wound to outer aspect of the LLE. Both areas are dry w/no open areas noted. Pt and oriented to room & call system Call light w/in reach, bed alarm on for pt safety. Continue w/plan of care. Admission Note: The patient,Alex Coronado,81 y/o, was given written information regarding hospital policies, unit procedures and contact persons. Patient's smoking status: Former smoker. Vital Signs - 8 hr 05/23/21 13:45 05/23/21 14:00 05/23/21 14:15 Temperature Pulse Rate 91 H 91 H 91 H Respiratory Rate 15 16 16 Blood Pressure 91/52 L Pulse Oximetry 99 97 95 05/23/21 14:19 05/23/21 14:30 05/23/21 14:45 Temperature Pulse Rate 91 H 90 93 H Respiratory Rate 29 H 21 28 H Blood Pressure 101/52 L 97/70 Pulse Oximetry 93 05/23/21 15:00 05/23/21 15:15 05/23/21 15:30 Temperature Pulse Rate 95 H 92 H 93 H Respiratory Rate 18 17 24 Blood Pressure 99/57 L 92/66 Pulse Oximetry 98 99 97 05/23/21 15:45 05/23/21 16:00 05/23/21 16:15 Temperature Pulse Rate 94 H 91 H 93 H Respiratory Rate 26 H 21 23 Blood Pressure 94/52 L Pulse Oximetry 97 97 97 05/23/21 16:30 05/23/21 16:45 05/23/21 17:00 Temperature Pulse Rate 93 H 93 H 92 H Respiratory Rate 26 H 25 H 28 H Blood Pressure 87/64 L 92/64 Pulse Oximetry 98 98 98 05/23/21 17:15 05/23/21 17:30 05/23/21 17:45 Temperature Pulse Rate 89 92 H 92 H Respiratory Rate 26 H 22 29 H Blood Pressure 98/61 Pulse Oximetry 98 98 98 05/23/21 18:00 05/23/21 18:15 07/26/21 18:45 Temperature 98.0 F Pulse Rate 92 H 97 H 100 H Respiratory Rate 28 H 28 H 20 Blood Pressure 100/67 110/69 Pulse Oximetry 98 96 07/ 18:54 Temperature Pulse Rate Respiratory Rate Blood Pressure Pulse Oximetry 95
[2021-05-24] VITALS (16 sets, daily range): BP systolic 90–116; BP diastolic 54–67; PULSE 67–111; RESP 20–22; TEMP 36.1–36.4; O2SAT 92–96
[2021-05-24] MEDS: ACETAMINOPHEN 325 MG TABLET 650 MG PO ×2 (05:02→20:46)
[2021-05-24 05:11] LABS: Add Manual Diff / Slide Review NO; Basophils Absolute Auto 100 /uL (0-100); Eosinophils Absolute Auto 100 /uL (0-450); Hematocrit 27.9 % (41-53); Hemoglobin 8.9 g/dL (13.5-17.5); Lymphocytes Absolute Auto 500 /uL (1100-4500); Lymphocytes Percent Auto 9.6 % (25-40); Mean Corpuscular HGB Conc 32.1 % (30-36); Mean Corpuscular Volume 99.6 fL (80-100); Monocytes Absolute Auto 400 /uL (0-900); Monocytes Percent Auto 8.7 % (3-14); Neutrophils Absolute Auto 3800 /uL (1500-7000); Neutrophils Percent Auto 77.7 % (50-75); Platelet Count 158 X10^3/uL (150-400); Red Cell Distribution Width 16.1 % (11.6-14.8)
[2021-05-24 05:21] LABS: BUN Creatinine Ratio 11.4 (6-22); Blood Urea Nitrogen 64 mg/dL (9-20); Calcium 9.1 mg/dL (8.4-10.2); Carbon Dioxide 16 mmol/L (22-32); Chloride 110 mmol/L (98-107); Estimated Glomerular Filt Rate 9.8 mL/min (>60); Glucose 75 mg/dL (80-110); HEMOLYSIS < 15 (0-50); Magnesium 1.9 mg/dL (1.6-2.3); Phosphorous 3.7 mg/dL (2.3-3.7); Potassium 4.3 mmol/L (3.4-5.1); Sodium 138 mmol/L (137-145)
[2021-05-24 05:23] LABS: Prothrombin Time 127.8 SECONDS (10.1-12.7)
[2021-05-24 05:35] LABS: INR 10.7 (0.9-1.3)
--- NOTE | 2021-05-24 06:00 | PM.CALLCOV.1 ---
Call Coverage Note Note Narrative of Care Provided: Advised patient's INR was 10.7, an increase over yesterday's. Asked whether to administer Vitamin K, contraindicated due to acute kidney injury. Patient's guiac was positive and [place] is draining pink urine. Continue to monitor.
--- NOTE | 2021-05-24 07:24 | DI.ECHO.S_ITS ---
[facility] +---------+ : : [address] : : : : [id number] : : : : Phone: [phone]+ Echocardiogram Report + + :Name: SOFYA CARPIO Study Date: 05/24/2021 Height: 70 in : :[facility] ReadingLocation: Weight: 198 lb : : Gender: Male BSA: 2.1 m2 : :: 1940 Age: 81 yrs BP: 100/54 mmHg: :Reason For Study: CHRONIC HEART FAILURE : :Ordering Physician: JANET, : :DAYSI MORALES Performed By: Corrine Irvin : :Referring: DAYSI GONZALES : + + Interpretation Summary 1) Normal left ventricular size with moderately increased tihckness (concentric) and mildly to moderately reduced function (EF 40-45%). 2) Mildly enlarged right ventricle with mildly reduced function. 3) Both atria are severely dilated. 4) There is mild to moderate mitral regurgitation. 5) There is mild to moderate tricuspid regurgitation. 6) There is a small right-sided pleural effusion. 7) The right ventricular systolic pressure is estimated to be at least 48 mmHg based on an estimated right atrial pressure of 15 mm Hg. 8) [facility], LVEF has improved from 30-35% to 40- 45% on this study. Procedure: A two-dimensional transthoracic echocardiogram with color flow and Doppler was performed. The study quality was technically adequate. Comparison is made with the echocardiogram of 10/21/2018. The heart rate ranged between 81-101 bpm during the study. Left Ventricle: There is moderate concentric left ventricular hypertrophy. The left ventricle is normal in size. The ejection fraction is estimated to be 40-45%. Right Ventricle: The right ventricle is mildly dilated. Right ventricular systolic function is mildly reduced. Atria: Both atria are severely dilated. There is no Doppler evidence for an interatrial shunt. Mitral Valve: The mitral valve leaflets appear mildly thickened, but open well. There is mild mitral annular calcification. There is mild to moderate mitral regurgitation. Aortic Valve: The aortic valve is trileaflet. The aortic valve is moderately calcified. The aortic valve opens well. There is no aortic valve stenosis. There is trace aortic regurgitation. Tricuspid Valve: The tricuspid valve leaflets are thin and pliable. There is mild to moderate tricuspid regurgitation. The right ventricular systolic pressure is estimated to be at least 48 mmHg based on an estimated right atrial pressure of 15 mm Hg. Pulmonic Valve: The pulmonic valve leaflets are thin and pliable; valve motion is normal. There is mild pulmonic regurgitation. Great Vessels: The aortic root is normal size. The ascending aorta is at the upper limits of normal in size. The IVC is dilated (diameter is greater than 2.1 cm) and it collapses less than 50% with a sniff. This suggests a high right atrial pressure of 15 mm Hg. Pericardium/ Pleura There is no pericardial effusion. There is a small right-sided pleural effusion. MMode/2D Measurements & Calculations LVIDd: 5.3 cm LVOT diam: 2.1 cm LVIDs: 4.4 cm Ao root diam: 3.6 cm FS: 16.3 % asc Aorta Diam: 3.6 cm IVSd: 1.6 cm Ao Arch Diam (Prox Trans): 3.1 cm LVPWd: 1.3 cm LV bland. diameter/BSA (cm/m^2): 2.5 LV sys. diameter/BSA (cm/m^2): 2.1 LA A2 area: 36.9 cm2 RA long axis: 5.4 cm LA A4 area: 35.5 cm2 RA area: 30.3 cm2 LA length (vol): 6.6 cm RA vol: 144.2 ml LA vol: 168.5 ml RA : 69.4 ml/m2 LA vol index: 81.1 ml/m2 IVC diam: 3.1 cm TAPSE: 1.5 cm Doppler Measurements & Calculations Ao V2 max: 144.7 cm/sec LVOT Max Pranav: 74.6 cm/sec Ao V2 mean: 97.1 cm/sec LV V1 max P.2 mmHg Ao max P.4 mmHg LV V1 VTI: 13.4 cm Ao mean P.3 mmHg MCKENZIE(I,D): 1.8 cm2 Ao V2 VTI: 25.9 cm MCKENZIE(V,D): 1.8 cm2 sev ratio: 0.52 MCKENZIE indexed to BSA (cm^2/m^2): 0.85 MV E max pranav: 85.3 cm/sec TR max pranav: 289.0 cm/sec MV A max pranav: 1.5 cm/sec TR max P.4 mmHg MV E/A: 58.2 PA pr(Accel): 53.3 mmHg Med Peak E' Pranav: 3.7 cm/sec E/E' med: 22.9 Lat Peak E' Pranav: 6.0 cm/sec E/E' lat: 14.3 E/e' average: 18.6 MV dec time: 0.17 sec SV(LVOT): 45.7 ml Reading Physician:01:09 PM
[2021-05-24] MEDS: PHYTONADIONE (VIT K1) 5 MG TABLET 10 MG PO (08:25)
[2021-05-24] MEDS: PANTOPRAZOLE 40 MG VIAL IV ×2 (08:25→20:46)
[2021-05-24] MEDS: TAMSULOSIN 0.4 MG CAPSULE PO (08:25)
[2021-05-24] MEDS: SODIUM CHLORIDE 0.9% FLUSH 10 ML IV ×2 (08:26→20:46)
[2021-05-24] MEDS: ALBUTEROL 2.5 MG/3 ML NEB (ADULT) INH (08:32)
--- NOTE | 2021-05-24 08:41 | P.PN_ITS ---
Subjective Subjective Date Patient Seen: 05/24/21 Time Patient Seen: 08:41 Interval history: Overnight patient was found to have guiaic positive stools, started on PPI. INR and creatinine slightly increased today. Also with gross hematuria. INR nik to above 10. Given 10 mg of vitamin K and started on PPI. Patient continues to feel okay, still with mild shortness of breath, leg swelling not worsened but not improved. No fever, chills, changes in chronic cough. Exam Vital Signs (past 8 hours): - 05/24/21 04:00 05/24/21 05:51 05/24/21 07:25 Temperature 97.5 F L 97.0 F L Pulse Rate 67 100 H Respiratory Rate 22 22 Blood Pressure 100/54 L 107/67 Pulse Oximetry 92 92 93 Oxygen Delivery Method Room Air Oxygen Flow Rate 0 Narrative Exam Narrative: GENERAL APPEARANCE: Well developed, well nourished, in no acute distress. SKIN: Inspection of the skin reveals bilateral circumferential erythema in his lower extremities, which the patient states is improving. This area is mildly tender. It does not feel particularly warm. There are 2 small wounds, 1 on the posterior aspect of his right calf, and the other on the posterior aspect of his left calf. The right calf lesion is approximately 2 x 1 cm with a black eschar. The left lower extremity lesion is approximately 1.5 x 1 cm with granulation tissue, no induration or purulence noted. HEENT: Normocephalic atraumatic, extraocular muscles are intact, oropharynx is clear and mucous membranes are moist, neck is supple without adenopathy NECK: Supple and symmetric. There was no thyroid enlargement, and no tenderness, or masses were felt. CHEST: Normal AP diameter and normal contour without any kyphoscoliosis. LUNGS: bibasilar crackles, upper airway inspiratory wheezing. CARDIOVASCULAR: Irregularly irregular rhythm with a normal rate without any murmurs, gallops, rubs. Peripheral pulses were 2+ and symmetric. ABDOMEN: Soft, nontender, nondistended. Nguyen in place with pink urine. MUSCULOSKELETAL: There was no tenderness or effusions noted. Muscle strength and tone were normal. EXTREMITIES: No cyanosis, clubbing. There was 1+ pitting edema bilaterally, edema did extend to the knees bilaterally NEUROLOGIC: Alert and oriented x 3. Normal affect. Strength is +5/5 in the Upper Extremities and Lower Extremities Bilaterally. Sensation to touch was normal. Objective Labs Result Diagrams: 05/24/21 04:57 05/24/21 04:57 Labs: Laboratory Results - last 24 hr 05/23/21 05/23/21 05/23/21 12:30 12:30 12:30 WBC 4.5 RBC 2.88 L Hgb 9.4 L Hct 28.4 L MCV 98.9 MCH 32.6 MCHC 33.0 RDW 16.0 H Plt Count 175 Neut % (Auto) 78.3 H Lymph % (Auto) 11.9 L [facility] % (Auto) 6.8 Eos % (Auto) 2.1 Baso % (Auto) 0.9 Neut # (Auto) 3500 Lymph # (Auto) 500 L [facility] # (Auto) 300 Eos # (Auto) 100 Baso # (Auto) 0 PT 96.9 H INR 8.1 H* APTT 57 H Sodium 140 Potassium 4.3 Chloride 111 H Carbon Dioxide 18 L BUN 64 H Creatinine 5.87 H Estimated GFR 9.3 L BUN/Creatinine Ratio 10.9 Glucose 81 Lactate Calcium 9.3 Phosphorus Magnesium Total Bilirubin 0.6 AST 34 ALT 13 Alkaline Phosphatase 317 H Total Creatine Kinase CK-MB (CK-2) CK-MB (CK-2) Rel Index Troponin I NT-Pro-B Natriuret Pep Total Protein 6.5 Albumin 3.4 L Globulin 3.1 Albumin/Globulin Ratio 1.1 Lipase 135 Procalcitonin 0.27 Urine Color Urine Appearance Urine pH Ur Specific [place] Urine Protein Urine Glucose (UA) Urine Ketones Urine Occult Blood Urine Nitrate Urine Bilirubin Urine Urobilinogen Ur Leukocyte Esterase Urine RBC Urine WBC Ur Squamous Epith Cells Urine Bacteria Hyaline Casts Ur Culture Indicated? Ur Random Sodium SARS-CoV-2 (PCR) 05/23/21 05/23/21 05/23/21 12:30 12:40 13:46 WBC RBC Hgb Hct MCV MCH MCHC RDW Plt Count Neut % (Auto) Lymph % (Auto) [facility] % (Auto) Eos % (Auto) Baso % (Auto) Neut # (Auto) Lymph # (Auto) [facility] # (Auto) Eos # (Auto) Baso # (Auto) PT INR APTT Sodium Potassium Chloride Carbon Dioxide BUN Creatinine Estimated GFR BUN/Creatinine Ratio Glucose Lactate 1.5 Calcium Phosphorus Magnesium Total Bilirubin AST ALT Alkaline Phosphatase Total Creatine Kinase 176 H CK-MB (CK-2) 9.42 H CK-MB (CK-2) Rel Index 5.4 H Troponin I 0.231 H* NT-Pro-B Natriuret Pep 97401 H Total Protein Albumin Globulin Albumin/Globulin Ratio Lipase Procalcitonin Urine Color Urine Appearance Urine pH Ur Specific [place] Urine Protein Urine Glucose (UA) Urine Ketones Urine Occult Blood Urine Nitrate Urine Bilirubin Urine Urobilinogen Ur Leukocyte Esterase Urine RBC Urine WBC Ur Squamous Epith Cells Urine Bacteria Hyaline Casts Ur Culture Indicated? Ur Random Sodium SARS-CoV-2 (PCR) Negative 05/23/21 05/23/21 05/23/21 14:40 14:40 17:24 WBC RBC Hgb Hct MCV MCH MCHC RDW Plt Count Neut % (Auto) Lymph % (Auto) [facility] % (Auto) Eos % (Auto) Baso % (Auto) Neut # (Auto) Lymph # (Auto) [facility] # (Auto) Eos # (Auto) Baso # (Auto) PT INR APTT Sodium Potassium Chloride Carbon Dioxide BUN Creatinine 5.29 H Estimated GFR 10.5 L BUN/Creatinine Ratio Glucose Lactate Calcium Phosphorus Magnesium Total Bilirubin AST ALT Alkaline Phosphatase Total Creatine Kinase CK-MB (CK-2) CK-MB (CK-2) Rel Index Troponin I 0.214 H* NT-Pro-B Natriuret Pep Total Protein Albumin Globulin Albumin/Globulin Ratio Lipase Procalcitonin Urine Color Urine Appearance Urine pH Ur Specific [place] Urine Protein Urine Glucose (UA) Urine Ketones Urine Occult Blood Urine Nitrate Urine Bilirubin Urine Urobilinogen Ur Leukocyte Esterase Urine RBC Urine WBC Ur Squamous Epith Cells Urine Bacteria Hyaline Casts Ur Culture Indicated? Ur Random Sodium 66 SARS-CoV-2 (PCR) 05/23/21 05/24/21 05/24/21 17:24 04:57 04:57 WBC 5.0 RBC 2.80 L Hgb 8.9 L Hct 27.9 L MCV 99.6 MCH 32.0 MCHC 32.1 RDW 16.1 H Plt Count 158 Neut % (Auto) 77.7 H Lymph % (Auto) 9.6 L [facility] % (Auto) 8.7 Eos % (Auto) 2.0 Baso % (Auto) 2.0 Neut # (Auto) 3800 Lymph # (Auto) 500 L [facility] # (Auto) 400 Eos # (Auto) 100 Baso # (Auto) 100 PT 127.8 H D INR 10.7 H* APTT Sodium Potassium Chloride Carbon Dioxide BUN Creatinine Estimated GFR BUN/Creatinine Ratio Glucose Lactate Calcium Phosphorus Magnesium Total Bilirubin AST ALT Alkaline Phosphatase Total Creatine Kinase CK-MB (CK-2) CK-MB (CK-2) Rel Index Troponin I NT-Pro-B Natriuret Pep Total Protein Albumin Globulin Albumin/Globulin Ratio Lipase Procalcitonin Urine Color Yellow Urine Appearance Clear Urine pH 5.0 Ur Specific [place] 1.010 Urine Protein Negative Urine Glucose (UA) Negative Urine Ketones Negative Urine Occult Blood Negative Urine Nitrate Negative Urine Bilirubin Negative Urine Urobilinogen 0.2 Ur Leukocyte Esterase Negative Urine RBC None seen Urine WBC None seen Ur Squamous Epith Cells 0-1 /hpf Urine Bacteria Occasional (0-1) Hyaline Casts 5-10/lpf Ur Culture Indicated? Cult not indicated Ur Random Sodium SARS-CoV-2 (PCR) 05/24/21 04:57 WBC RBC Hgb Hct MCV MCH MCHC RDW Plt Count Neut % (Auto) Lymph % (Auto) [facility] % (Auto) Eos % (Auto) Baso % (Auto) Neut # (Auto) Lymph # (Auto) [facility] # (Auto) Eos # (Auto) Baso # (Auto) PT INR APTT Sodium 138 Potassium 4.3 Chloride 110 H Carbon Dioxide 16 L BUN 64 H Creatinine 5.61 H Estimated GFR 9.8 L BUN/Creatinine Ratio 11.4 Glucose 75 L Lactate Calcium 9.1 Phosphorus 3.7 Magnesium 1.9 Total Bilirubin AST ALT Alkaline Phosphatase Total Creatine Kinase CK-MB (CK-2) CK-MB (CK-2) Rel Index Troponin I NT-Pro-B Natriuret Pep Total Protein Albumin Globulin Albumin/Globulin Ratio Lipase Procalcitonin Urine Color Urine Appearance Urine pH Ur Specific [place] Urine Protein Urine Glucose (UA) Urine Ketones Urine Occult Blood Urine Nitrate Urine Bilirubin Urine Urobilinogen Ur Leukocyte Esterase Urine RBC Urine WBC Ur Squamous Epith Cells Urine Bacteria Hyaline Casts Ur Culture Indicated? Ur Random Sodium SARS-CoV-2 (PCR) [facility] Medical History Asthma Atrial fibrillation Chronic kidney disease (CKD) History of prostate cancer History of radiation therapy Partial blindness Surgical History H/O hernia repair Family History Mother Hypertension Stroke Father Hypertension Social History household members: spouse Smoking Status: Former smoker Assessment & Plan Assessment & Plan narrative: Alex Coronado is an 81-year-old male with a past medical history of atrial fibrillation, COPD, heart failure with preseved ejection fraction, CKD stage 4 and recent poorly healing lower extremity wounds who presented to the emergency room for concern for a wound infection. Admitted with Jimbo, elevated INR, acute on chronic heart failure 1. JIMBO on CKD stage IV - likely secondary to bactrim use as an outpatient, probable hypotension in setting of lasix therapy for chronic heart failure and ? current arb use. renal ultrasound without obstruction. Baseline Creatinine around 3.3 - 3.4. - nguyen placed in the ER. Continue for accurate Is and Os given slight rise today. - continue to monitor, avoid nephrotoxic medications - check echo to further assess fluid status, slight concern for low output state today. - discontinue losartan. - only concern at this time for volume overload, though no need for dialysis yet. Electrolytes okay as well. 2. Supratherapeutic INR now with GI bleeding and hematuria. - ctoninue hold coumadin. INR 8.1 on admission likely secondary to bactrim on admission. INR 10.7 today. Guiaic positive stools today and gross hematuria in nguyen catheter. Hematuria in nguyen may be from catheter itself. - started on IV PPI, can continue renal diet. No need for scope emergently, consider if INR reversed and continues to bleed, however would defer to outpatient if necessary. - h/h slight decline from 9.4 to 8.9, normally around 10 as an outpatient, will continue to monitor. 3. chronic atrial fibrillation - continue home medications, except for warfarin. 4. Acute on chronic dastolic heart failure - proBNP >54425 on admission. Also given multiple L of fluid in the ER given elevated creatinine. He is slightly volumve overloaded at the moment and given JIMBO and soft pressures will avoid diuresis for now. - last TTE was 11/06/2019, showed EF of 55%, asymmetric septal hypertrophy, mild aortic inufficiency. Have ordered repeat TTE today. - if pressures improve and evidence of volume overload on echo will consider diuresis later today. 5. Acute on Chronic anemia - likely secondary to CKD, continue to monitor. Hg 8.9 today, around 10 as an outpatient, may be dilutional from all the fluids yesterday but also with guiaic positive stools and hematuria. 6. Elevated troponin, improved - likely secondary to JIMBO, downtrended in the ER. No chest pain, no acute ischemic findings on EKG. 7. Bilateral cellulitis and chronic lower extremity wounds, improving. - looks mild at this time, started on ceftriaxone for an additional 3 days. Was being treated as outpatient with bactrim, was on his final dose of a 10 day course. - current wounds do not appear to be infected. Recommend outpatient wound care evaluation once discharged. 8. Gout, chronic, without active disease - hold home allopurinol at this time given jimbo. 9. COPD, chronic - replace home inhalers with duonebs q4h while awake and albuterol prn. No evidence of acute exacerbation. Code: Full as discussed with the patient, surrogate decision maker is the patient's , Raina DVT: Patient is supratherapeutic in his INR, will resume Coumadin if INR improves prior to discharge Dispo: anticipate discharge home, timing unclear, may need transfer depending on creatinine trends or if in low output state from cardiac disease. COVID-19 COVID-19 status: Negative Quality VTE Deep Vein Thrombosis/Pulmonary Embolism Present on Admission: No
--- NOTE | 2021-05-24 12:31 | CM.DANOTE ---
DCP:Case received, EMR reviewed and met with patient. , Raina, was also at bedside. Introduced self and role. Was able to obtain information from patient and spouse baseline activity status prior to hospitalization. DCP assessment completed with information currently available. Patient is n 81 year old male who admitted yesterday afternoon to the care of the hospitalist team. PCP: Dr. Kessler. Payer: confirmed: Medicare/[employer] [place] [employer]. Patient came to the hospital via private vehicle secondary to increased weakness. Patient has history of COPD, a-fib, as well as chronic dyspnea. Patient was also recently put on Bactrim for L.E. infection, which caused him to have an increase of his INR. Patient holds current diagnosis of JIMBO on CKD Stage 4. He also had a positive guiac, and is also supposed to have an echo today. Met with patient and spouse. He was sitting up in his chair, alert and oriented, pleasant. Patient resides in [place] with his spouse, Raina. Confirmed with patient that he is still seeing Dr. Kessler as his primary care provider. He mentioned that he is currently still driving, and is independent upon ambulation, but has 2 canes and walker for use if needed. Discussed home health options if needed, should he be home bound, such as nursing coming in to check INR if he is unable to do outpatient. P: DCP to continue to follow. Patient should be able to go home when he is deemed medically stable. Melissa Tellez RN/Senior [employer] Software Engineer
[2021-05-24] MEDS: ALBUTEROL/IPRATROPIUM 3 ML AMPUL INH ×3 (14:36→22:34)
--- NOTE | 2021-05-24 14:52 | PC.NURSE ---
Uop is 100mls for this shift. Dr. Marino made aware. Vit K given and uop does look less red, no clots seen, does have sediment still. Dr. Marino made aware of uop.
[2021-05-24] MEDS: cefTRIAXone 1,000 MG in SODIUM CHLORIDE 0.9% 100 ML 200 ML IV (20:45)
[2021-05-25] VITALS (16 sets, daily range): BP systolic 90–102; BP diastolic 54–66; PULSE 93–103; RESP 16–22; TEMP 36.1–36.7; O2SAT 93–96; BMI 28.4
[2021-05-25 05:47] LABS: Add Manual Diff / Slide Review NO; Basophils Absolute Auto 100 /uL (0-100); Basophils Percent Auto 1.1 % (0-2); Eosinophils Absolute Auto 100 /uL (0-450); Eosinophils Percent Auto 1.6 % (2-4); Hematocrit 27.3 % (41-53); Hemoglobin 8.8 g/dL (13.5-17.5); Lymphocytes Absolute Auto 400 /uL (1100-4500); Mean Corpuscular HGB Conc 32.1 % (30-36); Mean Corpuscular Hemoglobin 32.1 PG (26-34); Mean Corpuscular Volume 100.1 fL (80-100); Monocytes Absolute Auto 400 /uL (0-900); Monocytes Percent Auto 7.6 % (3-14); Neutrophils Absolute Auto 4600 /uL (1500-7000); Neutrophils Percent Auto 82.7 % (50-75); Platelet Count 166 X10^3/uL (150-400); Red Blood Cell Count 2.73 X10^6/uL (4.5-5.9); Red Cell Distribution Width 16.1 % (11.6-14.8); White Blood Cell Count 5.5 X10^3/uL (4.5-11.0)
[2021-05-25 05:49] LABS: BUN Creatinine Ratio 10.9 (6-22); Blood Urea Nitrogen 63 mg/dL (9-20); Carbon Dioxide 14 mmol/L (22-32); Chloride 106 mmol/L (98-107); Estimated Glomerular Filt Rate 9.4 mL/min (>60); Glucose 69 mg/dL (80-110); HEMOLYSIS < 15 (0-50); Magnesium 1.9 mg/dL (1.6-2.3); Phosphorous 4.2 mg/dL (2.3-3.7); Potassium 4.4 mmol/L (3.4-5.1); Sodium 135 mmol/L (137-145)
[2021-05-25 05:59] LABS: INR 5.1 (0.9-1.3)
[2021-05-25] MEDS: LEVOTHYROXINE 100 MCG TABLET 200 MCG PO (06:16)
[2021-05-25] MEDS: TAMSULOSIN 0.4 MG CAPSULE PO (08:35)
[2021-05-25] MEDS: SODIUM CHLORIDE 0.9% FLUSH 10 ML IV ×3 (08:35→20:16)
[2021-05-25] MEDS: PANTOPRAZOLE 40 MG VIAL IV ×2 (08:35→20:16)
[2021-05-25] MEDS: ALBUTEROL/IPRATROPIUM 3 ML AMPUL INH ×4 (08:49→22:48)
--- NOTE | 2021-05-25 09:58 | PC.NURSE ---
Addendum entered by Frances Rahman R.N. 05/25/21 12:54: Please not notes below. Patient is not independent in the room. He is a one person assist. Addendum entered by Frances Rahman R.N. 05/25/21 12:48: Patient denies discomfort. He is eating his lunch, and independent in the room. Resting comfortably. Addendum entered by Frances Rahman R.N. 05/25/21 12:35: Patient seems to be a bit confused at he was trying to take his tele pads off. Replaced pads and patient is now enjoying his lunch. His urine is still bloody, and he has put out minimal urine. Denies discomfort, started on sodium bicarb tablets. Original Note: Patient is alert and oriented x3, he denies pain. Up to the bathroom with one person assist. Patient has a nguyen catheter with bright blood present. He is purse lipped breathing but is 93% on room air. Patient has some venous ulcers on the back of his shins that are open to air, with some white hard areas in the middle of wounds. He has had low urine output, and Dr. Marino is aware of this. Kidney function labs are high and gfr is low at 9. He sits up in the chair and his is of great help to him. Patient is a sba to use the bathroom with the walker.
[2021-05-25] MEDS: SODIUM BICARBONATE 650 MG TABLET PO ×3 (12:02→20:16)
[2021-05-25] MEDS: FUROSEMIDE 40 MG/4 ML VIAL IV (13:55)
--- NOTE | 2021-05-25 15:19 | PM.PN.1 ---
Subjective Subjective Date Patient Seen: 05/25/21 Time Patient Seen: 15:19 Interval history: Alex Coronado is an 81-year-old male with a past medical history of atrial fibrillation, COPD, heart failure with preseved ejection fraction, CKD stage 4 and recent poorly healing lower extremity wounds who presented to the emergency room for concern for a wound infection. Admitted with Jimbo, elevated INR, possible acute on chronic heart failure vs volume overload from renal disease. He has no complaints today, denies shortness of breath though is slightly dyspnic on exertion. Exam Vital Signs (past 8 hours): - 05/25/21 07:27 05/25/21 09:00 Temperature 97.0 F L Pulse Rate 94 H 93 H Respiratory Rate 16 20 Blood Pressure 93/60 Pulse Oximetry 94 95 Oxygen Delivery Method Room Air Oxygen Flow Rate 0 Narrative Exam Narrative: GENERAL APPEARANCE: Well developed, well nourished, in no acute distress. SKIN: Inspection of the skin reveals bilateral circumferential erythema in his lower extremities, which the patient states is improving. This area is mildly tender. It does not feel particularly warm. There are 2 small wounds, 1 on the posterior aspect of his right calf, and the other on the posterior aspect of his left calf. The right calf lesion is approximately 2 x 1 cm with a black eschar. The left lower extremity lesion is approximately 1.5 x 1 cm with granulation tissue, no induration or purulence noted. These appear stable since admission. HEENT: Normocephalic atraumatic, extraocular muscles are intact, oropharynx is clear and mucous membranes are moist, neck is supple without adenopathy NECK: Supple and symmetric. There was no thyroid enlargement, and no tenderness, or masses were felt. CHEST: Normal AP diameter and normal contour without any kyphoscoliosis. LUNGS: bibasilar crackles, upper airway inspiratory wheezing improved today. CARDIOVASCULAR: Irregularly irregular rhythm with a normal rate without any murmurs, gallops, rubs. Peripheral pulses were 2+ and symmetric. ABDOMEN: Soft, nontender, nondistended. Nguyen in place with pink urine. MUSCULOSKELETAL: There was no tenderness or effusions noted. Muscle strength and tone were normal. EXTREMITIES: No cyanosis, clubbing. There was 1+ pitting edema bilaterally, edema did extend to the knees bilaterally NEUROLOGIC: Alert and oriented x 3. Normal affect. Strength is +5/5 in the Upper Extremities and Lower Extremities Bilaterally. Sensation to touch was normal. Objective Labs Result Diagrams: 05/25/21 05:13 05/25/21 05:13 Labs: Laboratory Results - last 24 hr 05/25/21 05/25/21 05/25/21 05:13 05:13 05:13 WBC 5.5 RBC 2.73 L Hgb 8.8 L Hct 27.3 L MCV 100.1 H MCH 32.1 MCHC 32.1 RDW 16.1 H Plt Count 166 Neut % (Auto) 82.7 H Lymph % (Auto) 7.0 L [place] % (Auto) 7.6 Eos % (Auto) 1.6 L Baso % (Auto) 1.1 Neut # (Auto) 4600 Lymph # (Auto) 400 L [place] # (Auto) 400 Eos # (Auto) 100 Baso # (Auto) 100 PT 60.0 H D INR 5.1 H* Sodium 135 L Potassium 4.4 Chloride 106 Carbon Dioxide 14 L BUN 63 H Creatinine 5.80 H Estimated GFR 9.4 L BUN/Creatinine Ratio 10.9 Glucose 69 L Calcium 9.0 Phosphorus 4.2 H Magnesium 1.9 PFSH Medical History Asthma Atrial fibrillation Chronic kidney disease (CKD) History of prostate cancer History of radiation therapy Partial blindness Surgical History H/O hernia repair Family History Mother Hypertension Stroke Father Hypertension Social History household members: spouse Smoking Status: Former smoker Assessment & Plan Assessment & Plan narrative: Alex Coronado is an 81-year-old male with a past medical history of atrial fibrillation, COPD, heart failure with preseved ejection fraction, CKD stage 4 and recent poorly healing lower extremity wounds who presented to the emergency room for concern for a wound infection. Admitted with Jimbo, elevated INR, acute on chronic heart failure 1. JIMBO on CKD stage IV - likely secondary to bactrim use as an outpatient, probable hypotension in setting of lasix therapy for chronic heart failure and ? current arb use. renal ultrasound without obstruction. Baseline Creatinine around 3.3 - 3.4. - nguyen placed in the ER. Continue for accurate Is and Os given slight rise today. - continue to monitor, avoid nephrotoxic medications. Creatinine is increasing the last few days. - echo showed an EF of 40-45%, elevated right sided pressures and probable volume overload. Given soft blood pressures, disucssed with nephrology at [facility] today, recommended 40 mg IV lasix trial to see if improved. If pressures remain soft, or creatinine continues to rise, re-call tomorrow to consider transfer for possible dialysis. - discontinued losartan. - only concern at this time for volume overload, though no need for dialysis yet, will try lasix as above if pressures tolerate. Worsening acidosis as well on chemistries though bicarb only 14. - started sodium bicarb supplementation and renal protection today, goal bicarb of normal, currently 14. 2. Supratherapeutic INR now with GI bleeding and hematuria. - ctoninue hold coumadin. INR 8.1 on admission likely secondary to bactrim on admission. INR 10.7 yesterday but improved to 5. Guiaic positive stools and gross hematuria in nguyen catheter. Hematuria in nguyen may be from catheter itself. - started on IV PPI, can continue renal diet. No need for scope emergently, consider if INR reversed and continues to bleed, however would defer to outpatient if necessary. - h/h slight decline from 9.4 to 8.8 today, normally around 10 as an outpatient, will continue to monitor. 3. chronic atrial fibrillation - continue home medications, except for warfarin. 4. Acute on chronic dastolic heart failure - proBNP >13842 on admission. Also given multiple L of fluid in the ER given elevated creatinine. He is slightly volume overloaded at the moment and given JIMBO and soft pressures have avoided diuresis. At the recommendation of nephrology this was started today at 40 mg x1 dose. Will assess response. - last TTE was 11/06/2019, showed EF of 55%, asymmetric septal hypertrophy, mild aortic inufficiency. repeat TTE yesterday showing EF of 40-45% with elevated right sided pressures indicative of volume overload. - if pressures improve and evidence of volume overload on echo will consider diuresis later today. 5. Acute on Chronic anemia - likely secondary to CKD, continue to monitor. Hg 8.8 today, around 10 as an outpatient, may be dilutional from all the fluids yesterday but also with guiaic positive stools and hematuria. 6. Elevated troponin, improved - likely secondary to JIMBO, downtrended in the ER. No chest pain, no acute ischemic findings on EKG. 7. Bilateral cellulitis and chronic lower extremity wounds, improving. - looks mild at this time, started on ceftriaxone for an additional 3 days, today is the final day of treatment. Was being treated as outpatient with bactrim, was on his final dose of a 10 day course. - current wounds do not appear to be infected. Recommend outpatient wound care evaluation or follow up with PCP once discharged. 8. Gout, chronic, without active disease - hold home allopurinol at this time given jimbo. 9. COPD, chronic - replace home inhalers with duonebs q4h while awake and albuterol prn. No evidence of acute exacerbation. Code: Full as discussed with the patient, surrogate decision maker is the patient's , Raina DVT: Patient is supratherapeutic in his INR, will resume Coumadin if INR improves prior to discharge Dispo: anticipate discharge home, timing unclear, may need transfer depending on creatinine trends or if in low output state from cardiac disease. Quality VTE Deep Vein Thrombosis/Pulmonary Embolism Present on Admission: No
[2021-05-25] MEDS: ACETAMINOPHEN 325 MG TABLET 650 MG PO (18:48)
[2021-05-25] MEDS: OXYMETAZOLINE NASAL SPRAY 15 ML 2 SPRAYS NASAL (18:48)
[2021-05-25] MEDS: BENZOCAINE/MENTHOL 1 LOZ PKT 1 EACH PO (18:49)
[2021-05-25] MEDS: cefTRIAXone 1,000 MG in SODIUM CHLORIDE 0.9% 100 ML 200 ML IV (18:49)
--- NOTE | 2021-05-25 21:41 | PC.NURSE ---
IVA Dumont notified about patient's current output of 125 mL for the evening shift. No new orders received.
[2021-05-26] VITALS (16 sets, daily range): BP systolic 87–130; BP diastolic 53–67; PULSE 74–111; RESP 18–24; TEMP 35.7–36.2; O2SAT 90–99
--- NOTE | 2021-05-26 | DI.CT.S_ITS ---
PROCEDURE: CT KIDNEY URETER BLADDER (KUB) INDICATIONS: r/o obstruction TECHNIQUE: Axial sections were acquired from the lung bases to the pubic symphysis. Coronal and sagittal reformats were performed. For radiation dose reduction, the following was used: automated exposure control, adjustment of mA and/or kV according to patient size. COMPARISON:None. FINDINGS: Image quality: Excellent. Lung bases: Moderate right pleural effusion with associated right basilar atelectasis. Mild left pleural effusion with associated left basilar atelectasis. Heart: Four-chamber cardiomegaly, dense coronary artery atherosclerotic calcifications. URINARY: Right Kidney: 3 mm nonobstructing middle pole stone. Multiple renal cysts. Subcentimeter hemorrhagic middle pole renal cyst. Right Ureter: No hydroureter. Left Kidney: Question solid renal mass measuring 5.9 x 3.5 cm. Multiple renal cysts, a number of which are hemorrhagic. This includes a 2.4 cm hemorrhagic cyst. Numerous cysts. No hydronephrosis. Left Ureter: No hydroureter. Bladder: A Fulton catheter is in place. There is a large amount of air in the bladder. There is mild bladder wall thickening. ABDOMEN: Liver: Unremarkable. Gallbladder: Minimal gallbladder neck gravel versus tiny stones. No gallbladder wall thickening. Biliary ducts: Unremarkable. Pancreas: Unremarkable. Spleen: Unremarkable. Adrenal Glands: Unremarkable. Miscellaneous: Anasarca Stomach and Bowel: Sigmoid diverticulosis without evidence of diverticulitis. Peritoneum: Mild ascites. No free air. Ventral Wall: No hernia. Abdominal Nodes: No enlarged retroperitoneal or mesenteric lymph nodes. Vessels: Aorta and inferior vena cava are normal in size. Dense aortic and bilateral iliac atherosclerotic calcifications. Calcified origin stenosis of the SMA. The calcified origin stenosis of the right renal artery. PELVIS: Pelvic Organs: Prostate implant seeds.. Pelvic Nodes: Unremarkable. Miscellaneous: No inguinal hernias are seen. Bones: Extensive lumbar degenerative change. Canal stenosis at L3-L4 and L4-L5. IMPRESSION: 1. Moderate right pleural effusion with right basilar atelectasis, mild left pleural effusion with left basilar atelectasis. 2. Four-chamber cardiomegaly, advanced coronary artery calcifications. 3. Diffuse aortoiliac atherosclerosis, calcified SMA origin stenosis, calcified proximal right renal artery stenosis. 4. Question solid left renal mass measuring approximately 5.9 x 3.5 cm. 5. Multiple bilateral renal cysts, including multiple hemorrhagic renal cysts. 6. Mild ascites, anasarca. Comment: Recommend multiphase MRI to evaluate the possible left renal mass. Dictated by: Celestine Fan M.D. on 05/26/2021 at 16:13 Approved by: Celestine Fan M.D. on 05/26/2021 at 16:26
[2021-05-26 06:09] LABS: Add Manual Diff / Slide Review NO; Basophils Absolute Auto 100 /uL (0-100); Basophils Percent Auto 1.3 % (0-2); Eosinophils Absolute Auto 100 /uL (0-450); Eosinophils Percent Auto 1.7 % (2-4); Hematocrit 26.7 % (41-53); Hemoglobin 8.7 g/dL (13.5-17.5); Lymphocytes Absolute Auto 300 /uL (1100-4500); Lymphocytes Percent Auto 5.9 % (25-40); Mean Corpuscular HGB Conc 32.8 % (30-36); Mean Corpuscular Hemoglobin 32.4 PG (26-34); Mean Corpuscular Volume 98.6 fL (80-100); Monocytes Absolute Auto 400 /uL (0-900); Monocytes Percent Auto 7.4 % (3-14); Neutrophils Absolute Auto 4500 /uL (1500-7000); Neutrophils Percent Auto 83.7 % (50-75); Platelet Count 154 X10^3/uL (150-400); Red Cell Distribution Width 16.3 % (11.6-14.8); White Blood Cell Count 5.4 X10^3/uL (4.5-11.0)
[2021-05-26 06:13] LABS: INR 4.2 (0.9-1.3); Prothrombin Time 48.7 SECONDS (10.1-12.7)
[2021-05-26 06:19] LABS: BUN Creatinine Ratio 11.2 (6-22); Blood Urea Nitrogen 64 mg/dL (9-20); Calcium 9.1 mg/dL (8.4-10.2); Carbon Dioxide 15 mmol/L (22-32); Chloride 105 mmol/L (98-107); Estimated Glomerular Filt Rate 9.5 mL/min (>60); Glucose 82 mg/dL (80-110); HEMOLYSIS < 15 (0-50); Magnesium 1.9 mg/dL (1.6-2.3); Phosphorous 4.3 mg/dL (2.3-3.7); Potassium 4.2 mmol/L (3.4-5.1); Sodium 133 mmol/L (137-145)
[2021-05-26] MEDS: LEVOTHYROXINE 100 MCG TABLET 200 MCG PO (06:23)
[2021-05-26] MEDS: SODIUM CHLORIDE 0.9% FLUSH 10 ML IV ×2 (08:10→20:30)
[2021-05-26] MEDS: TAMSULOSIN 0.4 MG CAPSULE PO (08:10)
[2021-05-26] MEDS: SODIUM BICARBONATE 650 MG TABLET PO ×3 (08:10→20:25)
[2021-05-26] MEDS: PANTOPRAZOLE 40 MG VIAL IV ×2 (08:10→20:25)
--- NOTE | 2021-05-26 09:11 | PC.NURSE ---
Assess- Patient is alert and oriented x3 but he can be forgetful at times. His nguyen catheter is putting out minimal output, and color is crimson, purple. He denies pain or irritation at catheter site. Up with one person assist and walker. in room, she also has periods of forgetfulness but tries to help patient out and is supportive.
[2021-05-26] MEDS: ALBUTEROL/IPRATROPIUM 3 ML AMPUL INH ×4 (09:13→22:38)
--- NOTE | 2021-05-26 15:45 | CM.DPC ---
DCP: continued: case received, EMR reviewed. Discussed in Team Rounds this morning. Noted that Dr. Marino had discussed POC with [facility] rotary driller and was trying the recommended treatment with outcome expected to either be pt improving and to home or consideration of a transfer to higher level of care that would involve dialysis. Dr. Sanches, taking over for today, said she was planning to follow up on this. No progress note is yet available re this. RN notes for today state nguyen catheter shows pt with minimal urine output and color dark crimson. Will plan to check in tomorrow as more is known. Payer: Medicare and [facility] Admission status: INPT: confirmed by UR ELIEL Dang.
[2021-05-26] MEDS: FUROSEMIDE 40 MG/4 ML VIAL IV (16:02)
[2021-05-26] MEDS: PHYTONADIONE (VIT K1) 5 MG in SODIUM CHLORIDE 0.9% 100 ML 201 ML IV (16:37)
--- NOTE | 2021-05-26 18:25 | P.PN_ITS ---
Subjective Subjective Interval history: Patient is an 81-year-old male who was admitted to the hospital for acute renal failure, likely ATN secondary to medications. Patient has chronic renal failure with chronic kidney disease stage 3. He does continue to have bloody hematuria, he has significant lower extremity edema, patient reports shortness of breath. He is relatively hypotensive. Patient did have good response to Lasix, he had about 600 cc of urine output Exam Vital Signs (past 8 hours): - 05/26/21 11:03 05/26/21 15:18 05/26/21 16:16 Temperature 96.9 F L 96.4 F L Pulse Rate 92 H 109 H 102 H Respiratory Rate 18 20 20 Blood Pressure 92/57 L 87/53 L Pulse Oximetry 96 99 95 Oxygen Delivery Method Room Air Oxygen Flow Rate 0 Narrative Exam Narrative: Ill-appearing male sitting in the bed Resp Other: Decreased breath sounds, bibasilar crackles noted Cardio Other: Cardiac exam: Regular rate rhythm normal S1-S2 with a 3/6 systolic ejection murmur GI Other: Abdomen distended, soft, nontender Extrem Other: Extremity with 2+ edema bilaterally Objective Labs Result Diagrams: 05/26/21 05:57 05/26/21 05:57 Labs: Laboratory Results - last 24 hr 05/26/21 05/26/21 05/26/21 05:57 05:57 05:57 WBC 5.4 RBC 2.70 L Hgb 8.7 L Hct 26.7 L MCV 98.6 MCH 32.4 MCHC 32.8 RDW 16.3 H Plt Count 154 Neut % (Auto) 83.7 H Lymph % (Auto) 5.9 L [place] % (Auto) 7.4 Eos % (Auto) 1.7 L Baso % (Auto) 1.3 Neut # (Auto) 4500 Lymph # (Auto) 300 L [place] # (Auto) 400 Eos # (Auto) 100 Baso # (Auto) 100 PT 48.7 H D INR 4.2 H Sodium 133 L Potassium 4.2 Chloride 105 Carbon Dioxide 15 L BUN 64 H Creatinine 5.73 H Estimated GFR 9.5 L BUN/Creatinine Ratio 11.2 Glucose 82 Calcium 9.1 Phosphorus 4.3 H Magnesium 1.9 PFSH Medical History Asthma Atrial fibrillation Chronic kidney disease (CKD) History of prostate cancer History of radiation therapy Partial blindness Surgical History H/O hernia repair Family History Mother Hypertension Stroke Father Hypertension Social History household members: spouse Smoking Status: Former smoker Assessment & Plan Assessment & Plan narrative: JIMBO on CKD stage IV - likely secondary to bactrim use as an outpatient, probable hypotension in setting of lasix therapy for chronic heart failure and ? current arb use. renal ultrasound without obstruction. Baseline Creatinine around 3.3 - 3.4. - nguyen placed in the ER. Continue for accurate Is and Os given slight rise today. - continue to monitor, avoid nephrotoxic medications. Creatinine is increasing the last few days. - echo showed an EF of 40-45%, elevated right sided pressures and probable volume overload. Given soft blood pressures, disucssed with nephrology at [facility] today, recommended 40 mg IV lasix trial to see if improved. If pressures remain soft, or creatinine continues to rise, re-call tomorrow to consider transfer for possible dialysis. - discontinued losartan. - only concern at this time for volume overload, though no need for dialysis yet, will try lasix as above if pressures tolerate. Worsening acidosis as well on chemistries though bicarb only 14. - started sodium bicarb supplementation and renal protection today, goal bicarb of normal, currently 14. -Discussed with Dr. Vivas ( Nephrology) She agrees this is likely ATN, but unclear when his renal function will return to normal -Given persistant hematuria, she recommends reversing INR -Will continue lasix as long as blood pressure tolerates -Transfer to outside facility as the patient may require definitive hemodialysis. Patient and are aware 2. Supratherapeutic INR now with GI bleeding and hematuria. - ctoninue hold coumadin. INR 8.1 on admission likely secondary to bactrim on admission. INR 10.7 yesterday but improved to 5. Guiaic positive stools and gross hematuria in nguyen catheter. Hematuria in nguyen may be from catheter itself. - started on IV PPI, can continue renal diet. No need for scope emergently, consider if INR reversed and continues to bleed, however would defer to outpatient if necessary. - h/h slight decline from 9.4 to 8.8 today, normally around 10 as an outpatient, will continue to monitor. -Vit K 5 mg IV to reverse given hematuria 3. chronic atrial fibrillation - continue home medications, except for warfarin. 4. Acute on chronic dastolic heart failure - proBNP >94307 on admission. Also given multiple L of fluid in the ER given elevated creatinine. He is slightly volume overloaded at the moment and given JIMBO and soft pressures have avoided diuresis. At the recommendation of nephrology this was started today at 40 mg x1 dose. Will assess response. - last TTE was 11/06/2019, showed EF of 55%, asymmetric septal hypertrophy, mild aortic inufficiency. repeat TTE yesterday showing EF of 40-45% with elevated right sided pressures indicative of volume overload. - if pressures improve and evidence of volume overload on echo will consider diuresis later today. -continue diuresis as blood pressure allows 5. Acute on Chronic anemia - likely secondary to CKD, continue to monitor. Hg 8.8 today, around 10 as an outpatient, may be dilutional from all the fluids yesterday but also with guiaic positive stools and hematuria. -will continue to follow 6. Elevated troponin, improved - likely secondary to JIMBO, downtrended in the ER. No chest pain, no acute ischemic findings on EKG. 7. Bilateral cellulitis and chronic lower extremity wounds, improving. - looks mild at this time, started on ceftriaxone for an additional 3 days, today is the final day of treatment. Was being treated as outpatient with bactrim, was on his final dose of a 10 day course. - current wounds do not appear to be infected. Recommend outpatient wound care evaluation or follow up with PCP once discharged. 8. Gout, chronic, without active disease - hold home allopurinol at this time given jimbo. 9. COPD, chronic - replace home inhalers with duonebs q4h while awake and albuterol prn. No evidence of acute exacerbation. Quality VTE Deep Vein Thrombosis/Pulmonary Embolism Present on Admission: No
--- NOTE | 2021-05-26 23:54 | PC.NURSE ---
SHIFT: Report received, care assumed. Pt. alert, pleasant, partially oriented, forgetful. VSS on room air. Demonstrates use of abdominal muscles with breathing but not complaining of SOB. Denies pain. Exhibits severe edema to BLE, with weeping wounds HOME. Wounds are large, irregular, with slough in wound beds (unable to visualize base of wounds). Asked hospitalist for wound care orders and lower extremity compression orders. Around 2200, demonstrating increased WOB. Reports feeling tight. Hospitalist informed, RT consulted, pt. placed on oxygen.
[2021-05-27] VITALS (22 sets, daily range): BP systolic 93–99; BP diastolic 57–65; PULSE 93–114; RESP 17–27; TEMP 36.2–36.4; O2SAT 94–100; BMI 28.4
--- NOTE | 2021-05-27 01:54 | PC.NURSE ---
Patient transferred to ICU room 228. He was having breathing difficulties requiring hi flow. Respiratory in to assess and help with transfer. Patient denied pain during my assessment, lungs were wheezy and wet. Medications locked in his new room box. Gave report to accepting nurse Zuleima.
[2021-05-27] MEDS: ALBUTEROL 2.5 MG/3 ML NEB (ADULT) INH (01:55)
--- NOTE | 2021-05-27 02:02 | PC.NURSE ---
0140- Patient transferred to room 228 for Heated High Flow 50 liters 30%. Patient has increased work of breathing with a very prolonged I:E ratio. Patient is coarse throughout with wheezing throughout. Patient given a breathing treatment and he is purse lip breathing. Patient using accessory muscles, saturations holding at 98%, respirations range from 25-28. Patient states he is in no pain. Fulton draining blood tinged urine. BP 94/65 mean is 74. Patient remains full code. Will monitor closely.
[2021-05-27 06:00] LABS: Add Manual Diff / Slide Review NO; Basophils Absolute Auto 100 /uL (0-100); Basophils Percent Auto 1.3 % (0-2); Eosinophils Absolute Auto 100 /uL (0-450); Eosinophils Percent Auto 2.1 % (2-4); Hematocrit 26.4 % (41-53); Hemoglobin 8.6 g/dL (13.5-17.5); INR 2.7 (0.9-1.3); Lymphocytes Absolute Auto 300 /uL (1100-4500); Lymphocytes Percent Auto 6.6 % (25-40); Mean Corpuscular HGB Conc 32.6 % (30-36); Mean Corpuscular Volume 98.1 fL (80-100); Monocytes Absolute Auto 300 /uL (0-900); Monocytes Percent Auto 7.7 % (3-14); Neutrophils Absolute Auto 3700 /uL (1500-7000); Neutrophils Percent Auto 82.3 % (50-75); Platelet Count 152 X10^3/uL (150-400); Prothrombin Time 30.9 SECONDS (10.1-12.7); Red Blood Cell Count 2.69 X10^6/uL (4.5-5.9); Red Cell Distribution Width 16.4 % (11.6-14.8); White Blood Cell Count 4.5 X10^3/uL (4.5-11.0)
[2021-05-27 06:08] LABS: Alanine Aminotransferase 20 IU/L (<50); Alkaline Phosphatase 243 U/L (38-126); Aspartate Aminotransferase 62 IU/L (17-59); BUN Creatinine Ratio 11.3 (6-22); Bilirubin Total 0.6 mg/dL (0.2-1.3); Blood Urea Nitrogen 64 mg/dL (9-20); Calcium 9.1 mg/dL (8.4-10.2); Carbon Dioxide 15 mmol/L (22-32); Chloride 102 mmol/L (98-107); Estimated Glomerular Filt Rate 9.7 mL/min (>60); Glucose 76 mg/dL (80-110); HEMOLYSIS < 15 (0-50); Potassium 4.2 mmol/L (3.4-5.1); Sodium 130 mmol/L (137-145)
[2021-05-27] MEDS: LEVOTHYROXINE 100 MCG TABLET 200 MCG PO (06:15)
[2021-05-27] MEDS: FUROSEMIDE 100 MG/10 ML VIAL 80 MG IV ×2 (07:42→14:42)
[2021-05-27] MEDS: SODIUM CHLORIDE 0.9% FLUSH 10 ML IV ×2 (07:43→14:55)
[2021-05-27] MEDS: ALBUTEROL/IPRATROPIUM 3 ML AMPUL INH ×4 (07:45→20:31)
[2021-05-27] MEDS: PANTOPRAZOLE 40 MG VIAL IV (08:54)
[2021-05-27] MEDS: TAMSULOSIN 0.4 MG CAPSULE PO (08:54)
[2021-05-27] MEDS: SODIUM BICARBONATE 650 MG TABLET PO (08:55)
--- NOTE | 2021-05-27 14:05 | P.PN_ITS ---
Subjective Subjective Interval history: Patient is an 81-year-old male who was admitted to the hospital with acute kidney injury. The patient developed progressive acute hypoxic respiratory failure last night. He was placed on high-flow oxygen. He received 80 mg of IV Lasix this morning. He did have some good urine output at 300 cc. He remains hypoxic on high-flow oxygen at this time. Exam Vital Signs (past 8 hours): - 05/27/21 06:17 05/27/21 07:45 05/27/21 09:00 Temperature 97.2 F L Pulse Rate 109 H 99 H 100 H Respiratory Rate 22 18 17 Blood Pressure 95/60 Pulse Oximetry 100 98 05/27/21 11:31 05/27/21 11:34 05/27/21 12:00 Temperature 97.5 F L Pulse Rate 102 H 109 H Respiratory Rate 26 H 17 Blood Pressure 93/57 L Pulse Oximetry 99 99 100 05/27/21 13:00 Temperature Pulse Rate Respiratory Rate Blood Pressure Pulse Oximetry 94 Fraction of Inspired Oxygen 0.28 Oxygen Delivery Method Heated High Flow Oxygen Flow Rate 50 Narrative Exam Narrative: Ill-appearing male lying in bed on heated high-flow oxygen Resp Other: Decreased breath sounds with scattered crackles bilaterally Cardio Other: Cardiac exam irregularly irregular, normal S1-S2, 2/6 systolic ejection murmur GI Other: Abdomen soft nontender nondistended without hepatosplenomegaly Extrem Other: 2+ pitting edema bilaterally Objective Labs Result Diagrams: 05/27/21 05:30 05/27/21 05:30 Labs: Laboratory Results - last 24 hr 05/27/21 05/27/21 05/27/21 01:50 05:30 05:30 WBC 4.5 RBC 2.69 L Hgb 8.6 L Hct 26.4 L MCV 98.1 MCH 32.0 MCHC 32.6 RDW 16.4 H Plt Count 152 Neut % (Auto) 82.3 H Lymph % (Auto) 6.6 L [place] % (Auto) 7.7 Eos % (Auto) 2.1 Baso % (Auto) 1.3 Neut # (Auto) 3700 Lymph # (Auto) 300 L [place] # (Auto) 300 Eos # (Auto) 100 Baso # (Auto) 100 PT 30.9 H D INR 2.7 H Sodium Potassium Chloride Carbon Dioxide BUN Creatinine Estimated GFR BUN/Creatinine Ratio Glucose Calcium Total Bilirubin AST ALT Alkaline Phosphatase Total Protein Albumin Globulin Albumin/Globulin Ratio Nasal Screen MRSA (PCR) Negative for mrsa 05/27/21 05:30 WBC RBC Hgb Hct MCV MCH MCHC RDW Plt Count Neut % (Auto) Lymph % (Auto) [place] % (Auto) Eos % (Auto) Baso % (Auto) Neut # (Auto) Lymph # (Auto) [place] # (Auto) Eos # (Auto) Baso # (Auto) PT INR Sodium 130 L Potassium 4.2 Chloride 102 Carbon Dioxide 15 L BUN 64 H Creatinine 5.67 H Estimated GFR 9.7 L BUN/Creatinine Ratio 11.3 Glucose 76 L Calcium 9.1 Total Bilirubin 0.6 AST 62 H ALT 20 Alkaline Phosphatase 243 H Total Protein 6.0 L Albumin 3.0 L Globulin 3.0 Albumin/Globulin Ratio 1.0 Nasal Screen MRSA (PCR) [facility] Medical History Asthma Atrial fibrillation Chronic kidney disease (CKD) History of prostate cancer History of radiation therapy Partial blindness Surgical History H/O hernia repair Family History Mother Hypertension Stroke Father Hypertension Social History household members: spouse Smoking Status: Former smoker Assessment & Plan Assessment & Plan narrative: 1. Acute hypoxic respiratory failure -patient with acute pulmonary edema likely secondary to his acute on chronic renal failure -patient now on high-flow oxygen -will continue IV Lasix, 80 mg Q 8 hours, echocardiogram reveals ejection fraction 40-45% -goal is to diurese, and taper oxygen as tolerated 2. Acute on chronic renal failure -multifactorial, likely ATN secondary to Bactrim, hypotension, and Lasix -renal ultrasound reveals no obstruction -noncontrast CT reveals the following: -Moderate right pleural effusion with right basilar atelectasis, mild left pleural effusion with left basilar atelectasis. Four-chamber cardiomegaly, advanced coronary artery calcifications.3. Diffuse aortoiliac atherosclerosis, calcified SMA origin stenosis, calcified proximal right renal artery stenosis.4. Question solid left renal mass measuring approximately 5.9 x 3.5 cm. 5. Multiple bilateral renal cysts, including multiple hemorrhagic renal cysts. 6. Mild ascites, anasarca. -patient remains acidotic, with a low bicarb, uremic, and pulmonary edema -patient requires semi urgent hemodialysis, will need a dialysis catheter, and transfer to a facility that can arrange dialysis -goal will be to diurese the patient such that his oxygenation improves -Will give 2 amps Sodium Bicarbonate 3. Acutte on Chronic diastolic Heart Failure -continue diuresis as above -taper oxygen as tolerated 4. Acute on Chronic Anemia -suspect Anemia of Chronic Disease -may have blood loss secondary supratherpeutic INR -will follow, check iron studies 5. Chronic Atrial Fibrillation -rate controlled\ -Inr 2.7 -hold coumadin as patient will likely require dialysis catheter soon 6.Supratherapeutic INR -given Vit K yesterday -Inr 2.7 7. Elevated Troponin -Suspect demand ischemia, no EKG changes or chest pain 8. Bilateral cellulitis -improving, completed antibiotics 9, Gout-chronic 10. COPD, continue nebulizers Quality VTE Deep Vein Thrombosis/Pulmonary Embolism Present on Admission: No
--- NOTE | 2021-05-27 15:11 | PC.NURSE ---
Addendum entered by Trudy Jaffe R.N. 05/27/21 15:14: Confirmed PO sodium bicarb stopped and IV to start @ 1500 Original Note: Am shift Pt on HHFNC 50L and 35%, able to wean down today to 20L 28% Fio2. [place]uly to get to [place] to allow Pt transfer for dialysis, tolerating weaning well. Denies SOB. Lungs are coarse with rhonchi, improved his shift, coarse crackles to lungs improved after lasiix dose. Fulton patent and hematuria with 300mls of output this shift. BLE with wounds and weeping noted. PItting edema 3+, scattered scabs and bruising to BLE, denies pain.
[2021-05-27 15:24] LABS: BUN Creatinine Ratio 11.6 (6-22); Blood Urea Nitrogen 64 mg/dL (9-20); Calcium 9.1 mg/dL (8.4-10.2); Carbon Dioxide 16 mmol/L (22-32); Chloride 102 mmol/L (98-107); Glucose 85 mg/dL (80-110); HEMOLYSIS < 15 (0-50); Potassium 4.4 mmol/L (3.4-5.1); Sodium 130 mmol/L (137-145)
[2021-05-27] MEDS: SODIUM BICARB 8.4% VIAL 150 MEQ in DEXTROSE 5% WATER 1,000 ML 50 MEQ IV (15:30)
[2021-05-27 15:41] LABS: HEMOLYSIS < 15 (0-50); Iron 42 ug/dL (49-181)
[2021-05-27 15:45] LABS: Percent Iron Saturation 23 % (20-50); Total Iron Binding Capacity 179 ug/dL (261-462); Transferrin 116 mg/dL (206-381)
--- NOTE | 2021-05-27 18:05 | P.DS_ITS ---
History of Present Illness History of Present Illness Chief complaint: couple cuts on legs, recurrent infection Narrative: Alex Coronado is an 81-year-old male with a past medical history of atrial fibrillation, COPD, heart failure with unknown ejection fraction, CKD stage 4 and recent poorly healing lower extremity wounds who presented to the emergency room for concern for a wound infection. Patient had been prescribed Bactrim by his primary care office 10 days ago for a bilateral lower extremity cellulitis, his was concerned about some poorly healing wounds, though she admits they look better than they did before. Patient has chronic dyspnea on exertion, but for the past week or so he has been slightly more short of breath. His lower extremity edema worsened a couple weeks ago prior to the onset of his cellulitis and he also has been having some early satiety as well. He denies any overt fever, chills, nausea, or vomiting. He does state that his cellulitis has been improving. His edema also looks better than it did before. In the emergency room, the patient was in atrial fibrillation with the rate generally in the 90s but occasionally up to 100. The remainder of his vital signs are unremarkable. Initial laboratory evaluation showed a WBC of 4.5, hemoglobin of 9.4, platelets of 175. Coagulation studies showed an INR of 8.1. Chemistry panel revealed a creatinine of 5.87 which improved to 5.29 on repeat (his baseline is around 3.4 according to outpatient records as best as I can tell), CO2 of 18, but normal potassium and sodium levels. Alk-phos was slightly elevated at 317, CK was slightly elevated at 176. Troponin was initially 0.231 which improved to 0.214 on repeat. There is no evidence of acute ischemia on [place] [address]. Urinalysis showed a normal specific gravity and no evidence of infection. There is no evidence of obstruction on ki dney imaging. COVID-19 testing was negative. Patient was admitted for JIMBO on CKD. Discharge Providers Provider Date of admission: 05/23/21 17:36 Discharge Date: 05/27/21 Primary care physician: Sergio Kessler MD Consults: 05/24/21 07:44 Consult to Respiratory Therapy Evaluate & Treat Comment: Physician Instructions: Evaluate and treat Discharge provider: Carina Ferro MD Summary Hospital Course Discharge Diagnosis: 1. Acute on chronic renal failure, likely secondary to ATN 2. Supratherapeutic INR, INR 8.1 on admission, now 2.7, patient received 5 mg of IV vitamin K 3. Chronic atrial fibrillation, rate controlled 4. Acute hypoxic respiratory failure likely secondary to acute pulmonary edema 5. Chronic anemia 6. Elevated troponin, no evidence of chest pain, suspect related to renal insufficiency, versus demand ischemia 7. Bilateral cellulitis, improved 8. Acute systolic heart failure Patient is in acute renal failure, Jonah inhibitor has been held, he is mildly hypotensive, beta-blockers have been held as well 9. COPD, not on home oxygen 10. Gout 11. Question solid left renal mass measuring 5.9 x 3.5 cm 12. Multiple bilateral renal cysts, including multiple hemorrhagic renal cyst 13. Mild ascites anasarca 14. Hyponatremia Hospital Course: Patient is an 81-year-old male who was admitted to the hospital for acute on chronic renal failure, supratherapeutic INR of 8.1, felt to be secondary to ATN. Patient received Bactrim, in addition to Coumadin, patient was taken off his losartan, his furosemide was discontinued,he underwent a renal ultrasound to r/o hydronephrosis which was negative for obstruction. Patient's baseline creatinine was 3.37. However his BUN peaked at 64 with a creatinine of 5.6. The patient was markedly acidotic with a bicarb of 16. The patient continued to developed progressive symptoms including acute hypoxic respiratory failure. He required high-flow oxygen. He was ultimately given IV Lasix with some improvement and urine output of 400 cc per day for the past 2 days. As such she was able to be tapered off the high-flow oxygen and is now on room air. The patient was given 5 mg of IV vitamin K, his INR decreased from 8.1-2.7. Patient initially had significant hematuria. Following reversal of the INR urine output is no longer bloody. Patient underwent cardiac echo. This showed a [id number] reduced ejection fraction of 40-45%, mildly enlarged right ventricle with mildly reduced function, both atria severely dilated, there was [id number]-[id number] mitral regurgitation, moderate tricuspid regurgitation, moderate right-sided pleural effusion. The patient underwent a CT KUB, this showed a moderate right-sided pleural effusion, with right basilar atelectasis, there was four-chamber cardiomegaly, advanced coronary artery sclerosis, there was a questionable solid left renal mass measuring about 5.9 x 3.5 cm, multiple bilateral renal cyst, and multiple hemorrhagic renal cysts, there was mild ascites and start anasarca. As the patient continued to have significant acute renal failure with minimal urine output and worsening acidosis, uremia, and respiratory failure in consultation with nephrology recommendations were made to transfer to a facility for and catheter placement as well as possible emergent hemodialysis. The patient was critically ill last evening, requiring high-flow oxygen. However with IV Lasix today the patient was able to be tapered off all oxygen, urine output picked up, patient had improvement in his breathing, he was started on a bicarb drip for his acidosis, and the patient was accepted by [facility], Dr. Herrera in consultation with Dr. Whitmore for treatment of acute on chronic renal failure. Status at Discharge Cognitive/behavioral status at discharge: oriented Functional status at discharge: independent ambulation Exam Vital Signs (past 8 hours): - 05/27/21 11:31 05/27/21 11:34 05/27/21 12:00 Temperature 97.5 F L Pulse Rate 102 H 109 H Respiratory Rate 26 H 17 Blood Pressure 93/57 L Pulse Oximetry 99 99 100 05/27/21 13:00 05/27/21 14:20 05/27/21 16:00 Temperature 97.4 F L Pulse Rate 94 H 110 H Respiratory Rate 18 19 Blood Pressure 96/64 Pulse Oximetry 94 100 100 05/27/21 16:12 05/27/21 16:18 05/27/21 16:21 Temperature Pulse Rate 105 H 104 H Respiratory Rate 18 24 Blood Pressure Pulse Oximetry 100 100 99 Fraction of Inspired Oxygen 30 Oxygen Delivery Method Nasal Cannula Oxygen Flow Rate 3 Narrative Exam Narrative: Ill-appearing male resting comfortably Resp Other: Decreased breath sounds, with scattered basilar crackles Cardio Other: Irregularly irregular, normal S1-S2, 3/6 systolic ejection murmur GI Other: Abdomen soft nontender nondistended Extrem Other: 1+ pitting edema bilaterally Objective Labs Result Diagrams: 05/27/21 05:30 05/27/21 15:03 Labs: Laboratory Results - last 24 hr 05/27/21 05/27/21 05/27/21 01:50 05:30 05:30 WBC 4.5 RBC 2.69 L Hgb 8.6 L Hct 26.4 L MCV 98.1 MCH 32.0 MCHC 32.6 RDW 16.4 H Plt Count 152 Neut % (Auto) 82.3 H Lymph % (Auto) 6.6 L Glascock % (Auto) 7.7 Eos % (Auto) 2.1 Baso % (Auto) 1.3 Neut # (Auto) 3700 Lymph # (Auto) 300 L Glascock # (Auto) 300 Eos # (Auto) 100 Baso # (Auto) 100 PT 30.9 H D INR 2.7 H Sodium Potassium Chloride Carbon Dioxide BUN Creatinine Estimated GFR BUN/Creatinine Ratio Glucose Calcium Iron TIBC % Saturation Transferrin Total Bilirubin AST ALT Alkaline Phosphatase Total Protein Albumin Globulin Albumin/Globulin Ratio Nasal Screen MRSA (PCR) Negative for mrsa 05/27/21 05/27/21 05/27/21 05:30 15:03 15:03 WBC RBC Hgb Hct MCV MCH MCHC RDW Plt Count Neut % (Auto) Lymph % (Auto) Glascock % (Auto) Eos % (Auto) Baso % (Auto) Neut # (Auto) Lymph # (Auto) Glascock # (Auto) Eos # (Auto) Baso # (Auto) PT INR Sodium 130 L 130 L Potassium 4.2 4.4 Chloride 102 102 Carbon Dioxide 15 L 16 L BUN 64 H 64 H Creatinine 5.67 H 5.52 H Estimated GFR 9.7 L 10.0 L BUN/Creatinine Ratio 11.3 11.6 Glucose 76 L 85 Calcium 9.1 9.1 Iron 42 L TIBC 179 L % Saturation 23 Transferrin 116 L Total Bilirubin 0.6 AST 62 H ALT 20 Alkaline Phosphatase 243 H Total Protein 6.0 L Albumin 3.0 L Globulin 3.0 Albumin/Globulin Ratio 1.0 Nasal Screen MRSA (PCR) [facility] Medical History Asthma Atrial fibrillation Chronic kidney disease (CKD) History of prostate cancer History of radiation therapy Partial blindness Surgical History H/O hernia repair Family History Mother Hypertension Stroke Father Hypertension Social History household members: spouse Smoking Status: Former smoker Discharge Assessment & Plan Assessment and Plan Assessment: 1. Acute on chronic renal failure 2. Acute hypoxic respiratory failure, improved 3. Acute systolic heart failure 4. Metabolic acidosis 5. Hyponatremia Plan of Treatment: Transfer to [facility] for definitive treatment in care of his acute renal failure Discharge Plan Discharge Plan Patient Disposition: [facility] Under care of provider: Dr. Rucker Discharge orders & Medications Prescriptions: No Action cholecalciferol (vitamin D3) [Vitamin D3] 1,000 unit Capsule 1,000 unit PO DAILY Qty: 0 RF: 0 omeprazole 20 mg tablet,delayed release (DR/EC) 20 mg PO BID Qty: 60 RF: 3 Spiriva Respimat 2.5 mcg/actuation mist 2 inhalation INHALATION QAM RF: 0 Bevespi Aerosphere 9-4.8 mcg HFA aerosol inhaler 2 puff INHALATION BID RF: 0 ferrous sulfate [Feosol] 325 mg (65 mg iron) tablet 325 mg PO DAILY RF: 0 Centrum Silver 0.4-300-250 mg-mcg-mcg tablet 1 tab PO DAILY RF: 0 tamsulosin 0.4 mg capsule 0.4 mg PO DAILY RF: 0 losartan 25 mg tablet 25 mg PO QPM RF: 0 allopurinol 300 mg tablet 300 mg PO DAILY RF: 0 warfarin 5 mg tablet 2.5 mg PO DAILY RF: 0 furosemide 40 mg tablet 80 mg PO DAILY RF: 0 levothyroxine 200 mcg tablet 200 mcg PO DAILY RF: 0 Follow up/Referrals: Sergio Kessler MD [Primary Care Provider] - Discharge Health Status Multidrug resistant organism: No MDRO Diet/Activity/Treatments Diet: Low-fat, Low-sodium and Low-protein/Renal Liquid consistency: Normal/Thin Food texture: Regular Discharge Data Primary Care Provider: Sergio Kessler Quality VTE Deep Vein Thrombosis/Pulmonary Embolism Present on Admission: No
--- NOTE | 2021-05-27 22:22 | PC.NURSE ---
2029 -Report given to RN at [facility], patients updated on where patient was going and room number, patients unable to go with patient due to visitor hours being over at [facility]. Patient and both okay with patient transferring to [facility]. Patients home eye drops unable to be returned to patient due to pharmacy being closed, patient and aware of this situation as well as daughter in law Beverley, okay with picking up eye drops tomorrow, RN at [facility] notified of situation and if they have lantoprost eye drops available in their pharmacy she said she will get them for patient in the meantime. 2100 - Ambulance here to pick patient up, report given to coroner transport technician, patient was able to ambulate to [facility], our tele box removed, patients belongings returned to patient, paperwork given to transport staff.
== END 2021-05-27 20:45 | disposition short-term general hospital (02) | DRG 682 ==
LOC: ED 14:20 → AC 17:37 → ICU 05-27 01:55
PROVIDERS: Internal Medicine; Admitting Provider Internal Medicine; Emergency Provider Emergency Medicine; Family Provider Internal Medicine Cardiovascular Disease; PCP Family Medicine; Referring Provider Emergency Medicine; Visit Provider Internal Medicine
DX: N17.0 Acute kidney failure with tubular necrosis (principal); I50.21 Acute systolic (congestive) heart failure; L03.116 Cellulitis of left lower limb; L03.115 Cellulitis of right lower limb; I48.20 Chronic atrial fibrillation, unspecified; R18.8 Other ascites; N18.4 Chronic kidney disease, stage 4 (severe); J44.9 Chronic obstructive pulmonary disease, unspecified; D63.1 Anemia in chronic kidney disease; R31.0 Gross hematuria; R19.5 Other fecal abnormalities; I95.2 Hypotension due to drugs; R79.1 Abnormal coagulation profile; T36.8X5A Adverse effect of other systemic antibiotics, initial encounter; M1A.9XX0 Chronic gout, unspecified, without tophus (tophi); R79.89 Other specified abnormal findings of blood chemistry; Z87.891 Personal history of nicotine dependence; Z79.01 Long term (current) use of anticoagulants; Z20.822 Contact with and (suspected) exposure to COVID-19; E03.9 Hypothyroidism, unspecified; E04.1 Nontoxic single thyroid nodule
CPT/HCPCS: 36415; 51702; 71045; 74176; 76536; 76770; 80048; 80053; 81001; 82550; 82553; 82565; 82962; 83540; 83550; 83605; 83690; 83735; 83880; 84100; 84145; 84300; 84484; 85025; 85610; 85730; 87040; 87635; 87797; 93005; 93306; 94640; 94760; 96360; 96361; 99285; 99291; C9803; A9270; C9113; J0696; J1940; J3430; J7613